=== PATIENT | male | born 1965 | race Caucasian/White ===

== ENCOUNTER → 2017-03-27 | Day surgery (SDC) | payer OTHER ==
[2017-03-26 07:54] VITALS: Ht 182.9 cm; Wt 86.4 kg
[~2017-03-27] VITALS: Ht 182.9 cm; Wt 86.4 kg
[~2017-03-27] MED LIST: ATEN-173 PO; LIDOCAINE HCL 2% 2 ML VIAL (20MG/ML) ONE; LISI-786 PO; MIDAZOLAM HCL 1 MG/ML 2ML VIAL ONE; OMEP20CA9 PO; ONDANSETRON INJ 2 MG/ML 2 ML VIAL ONE; PHENYLEPHRINE 100MCG/ML 5ML SYR ONE; PROPOFOL IV EMULSION 10 MG/ML 20 ML VIAL IV ONE; SODIUM CHLORIDE 0.9% 500ML 500 ML IV ONE
--- NOTE | 2017-03-27 10:14 | Endo History and Physical ---
History & Physical Date of Service: March 27, 2017. Chief Complaint: SCREENING Referring Physician: LAURA MONSIVAIS PA-C History of Present Illness 51 yo CM who presents for screening colonoscopy. Past Surgical History Hx Cardiac Surgery: No Hx Internal Defibrillator: No Hx Pacemaker: No Hx Abdominal Surgery: Yes (HERNIA REPAIR) Hx of Implantable Prosthesis: No Hx Post-Op Nausea and Vomiting: No Hx Cancer Surgery: No Hx Thoracic Surgery: No Hx Orthopedic: Yes (RT HAND REPAIR S/P BREAK) Hx Urinary Tract Surgery: No Family History Colon CA Social History Smoking Status: Current Every Day Smoker Hx Substance Use: No Hx Alcohol Use: Yes (4-6 DRINKS/DAY) Allergies Coded Allergies: No Known Allergies (Unverified , 03/27/17) Current Medications Reported Home Medications Medications Dose Route/Sig Max Daily Dose Days Date Category Prilosec (Omeprazole) 20 Mg Cap 20 Mg PO QAM 03/26/17 Reported Zestoretic (Lisinopril & Hydrochlorothiazi) 1 Tab Tab 1 Tab PO QAM 03/26/17 Reported Tenormin (Atenolol) 25 Mg Tab 0.5 Tab PO QPM 03/26/17 Reported Tenormin (Atenolol) 25 Mg Tab 25 Mg PO QAM 03/26/17 Reported Vital Signs Weight (Kilograms): 86.36 Height (Feet): 6 Height (Inches): 0 Date Time Temp Pulse Resp B/P Pulse Ox O2 Delivery O2 Flow Rate FiO2 03/27/17 09:49 37.1 76 18 145/96 98 Room Air Physical Exam General Appearance: WD/WN, no apparent distress Respiratory/Chest: Auscultation: breath sounds normal Cardiovascular: Heart Auscultation: RRR Abdomen: Bowel Sounds: normal Inspection & Palpation: soft, non-distended, no tenderness, guarding & rebound Assessment and Plan Assessment: 51 yo CM who presents for screening colonoscopy. Plan: Proceed with colonoscopy.
--- NOTE | 2017-03-27 10:57 | Discharge Instructions ---
Endoscopy Patient Instructions Date / Procedure(s) Performed March 27, 2017. Colonoscopy Allergy Information Coded Allergies: No Known Allergies (Unverified , 03/27/17) Discharge Date / Findings March 27, 2017. Colon polyps Diverticulosis Internal hemorrhoids Medication Instructions OK to resume all medications today as prescribed Reported Home Medications Medications Dose Route/Sig Max Daily Dose Days Date Category Prilosec (Omeprazole) 20 Mg Cap 20 Mg PO QAM 03/26/17 Reported Zestoretic (Lisinopril & Hydrochlorothiazi) 1 Tab Tab 1 Tab PO QAM 03/26/17 Reported Tenormin (Atenolol) 25 Mg Tab 0.5 Tab PO QPM 03/26/17 Reported Tenormin (Atenolol) 25 Mg Tab 25 Mg PO QAM 03/26/17 Reported Provider Instructions Activity Restrictions - No exercising or heavy lifting for 24 hours. - Do not drink alcohol the day of the procedure. - Do not drive a car or operate machinery until the day after the procedure. - Do not make any important decisions or sign important papers in 24 hours after the procedure. Following Day: - Return to full activity which may include returning to work/school. Diet Start your diet with liquids and light foods (jello, soup, juice, toast). Then eat your usual diet if not nauseated. Treatment For Common After Affects For mild abdominal pain, bloating, or excessive gas: - Rest - Eat lightly - Lie on right side Follow-Up Information Follow-up with LAURA MONSIVAIS PA-C as scheduled Anesthesia Information What You Should Know You have had a procedure that required some medicine to reduce anxiety and discomfort. This treatment is called moderate sedation. After receiving the treatment, you may be sleepy, but you will be able to breathe on your own. The effects of the treatment may last for several hours. Follow these instructions along with Activity/Diet recommendations noted above: * Do NOT do anything where dizziness or clumsiness would be dangerous. * Rest quietly at home today, then you can be up and about tomorrow. * Have a responsible person stay with you the rest of today. * You may have had an I.V. today. If so, you may take the dressing off later today. Recommendations Call your doctor if: * Trouble breathing * Continuous vomiting for more than 24 hours * Temperature above 101 degrees * Severe abdominal pain or bloating * Pain not relieved by pain medicine ordered * There is increased drainage or redness from any incision * A large amount of rectal bleeding greater than 2-3 tablespoons. (If you had a polyp/s removed or have hemorrhoids, a small amount of blood - from the rectum is to be expected.) * You have any unanswered questions or concerns. IN THE EVENT OF A SERIOUS EMERGENCY, GO TO THE NEAREST EMERGENCY ROOM Your discharge instructions were prepared by provider Davon Mccracken. Patient Instructions Signature Page Nestor Villeda Patient (or Guardian) Signature/Date: I have read and understand the instructions given to me by my caregivers. Caregiver/RN/Doctor Signature/Date: The above-named patient and/or guardian has received patient instructions on this date. + Original Patient Signature Page (only) stays with chart. Please make copy for patient.
--- NOTE | 2017-03-27 11:02 | GI REPORT ---
Procedure Date: 03/27/2017 10:03 AM Procedure: Colonoscopy Indications: Screening for colorectal malignant neoplasm Medicines: Monitored Anesthesia Care Complications: No immediate complications. Estimated Blood Loss: Estimated blood loss: none. Procedure: Pre-Anesthesia Assessment: - Prior to the procedure, a History and Physical was performed, and patient medications and allergies were reviewed. The patient's tolerance of previous anesthesia was also reviewed. The risks and benefits of the procedure and the sedation options and risks were discussed with the patient. All questions were answered, and informed consent was obtained. Prior Anticoagulants: The patient has taken no previous anticoagulant or antiplatelet agents. ASA Grade Assessment: II - A patient with mild systemic disease. After reviewing the risks and benefits, the patient was deemed in satisfactory condition to undergo the procedure. After I obtained informed consent, the scope was passed under direct vision. Throughout the procedure, the patient's blood pressure, pulse, and oxygen saturations were monitored continuously. The scope was introduced through the anus and advanced to the terminal ileum. The colonoscopy was performed without difficulty. The patient tolerated the procedure well. The quality of the bowel preparation was good. The terminal ileum, ileocecal valve, appendiceal orifice, and rectum were photographed. Findings: Six pedunculated polyps were found in the sigmoid colon. The polyps were 5 to 15 mm in size. These polyps were removed with a hot snare. Resection and retrieval were complete. To prevent bleeding after the polypectomy, four hemostatic clips were successfully placed (MR conditional). There was no bleeding at the end of the procedure. Scattered small-mouthed diverticula were found in the entire colon. Three sessile polyps were found in the rectum. The polyps were 5 to 7 mm in size. These polyps were removed with a hot snare. Resection and retrieval were complete. Non-bleeding internal hemorrhoids were found during retroflexion. The hemorrhoids were small. Impression: - Six 5 to 15 mm polyps in the sigmoid colon, removed with a hot snare. Resected and retrieved. Clips (MR conditional) were placed. - Diverticulosis in the entire examined colon. - Three 5 to 7 mm polyps in the rectum, removed with a hot snare. Resected and retrieved. - Non-bleeding internal hemorrhoids. Recommendation: - Resume previous diet. - Continue present medications. - Repeat colonoscopy for surveillance based on pathology results. - Return to primary care physician as previously scheduled. Davon Mccracken DO 03/27/2017 11:01:30 AM This report has been signed electronically. Note Initiated On: 03/27/2017 10:03 AM I attest to the content of the Intraoperative Record and orders documented therein, exceptions below
--- NOTE | 2017-03-27 11:08 | Anesthesiology Progress Note ---
Anesthesia Post Op Note Date & Time March 27, 2017 at 11:08 Vital Signs Pain Intensity: 0 Vital Signs Past 12 Hours Date Time Temp Pulse Resp B/P Pulse Ox O2 Delivery O2 Flow Rate FiO2 03/27/17 09:49 37.1 76 18 145/96 98 Room Air Notes Mental Status: alert / awake / arousable, participated in evaluation Pt Amnestic to Procedure: Yes Nausea / Vomiting: adequately controlled Pain: adequately controlled Airway Patency, RR, SpO2: stable & adequate BP & HR: stable & adequate Hydration State: stable & adequate Anesthetic Complications: no major complications apparent
[2017-03-27 11:36] VITALS: BP 160/100; PULSE 69; O2SAT 99
== END | disposition home or self-care (01) ==
LOC: C.GI 09:18
PROVIDERS: ATTEND Internal Medicine
DX: Z12.11 Encounter for screening for malignant neoplasm of colon (principal); C18.7 Malignant neoplasm of sigmoid colon; D12.8 Benign neoplasm of rectum; D12.5 Benign neoplasm of sigmoid colon; F17.200 Nicotine dependence, unspecified, uncomplicated; K57.30 Diverticulosis of large intestine without perforation or abscess without bleeding; K64.8 Other hemorrhoids

== ENCOUNTER → 2017-04-05 | Outpatient (CLI) | payer OTHER ==
[~2017-04-05] MED LIST changes: -LIDOCAINE HCL 2% 2 ML VIAL (20MG/ML) ONE; -MIDAZOLAM HCL 1 MG/ML 2ML VIAL ONE; -ONDANSETRON INJ 2 MG/ML 2 ML VIAL ONE; -PHENYLEPHRINE 100MCG/ML 5ML SYR ONE; -PROPOFOL IV EMULSION 10 MG/ML 20 ML VIAL IV ONE; -SODIUM CHLORIDE 0.9% 500ML 500 ML IV ONE
[2017-04-05 14:19] LABS: BASO % 0.6 %; BASO ABS # 0.05 K/uL (0-0.2); COMPLETE YES; HEMATOCRIT 43.5 % (42-52); IG% 0.4 %; LYMPH % 25.6 %; LYMPH ABS # 2.19 K/uL (1.2-3.4); MEAN CELL VOLUME 92.4 fL (80-100); MEAN CORPUSCULAR HEMOGLOBIN 31.2 pg (25-34); MEAN CORPUSCULAR HGB CONC 33.8 g/dl (32-36); MEAN PLATELET VOLUME 9.7 fL (7.4-10.4); MONO % 8.4 %; PLATELET COUNT 295 K/uL (130-400); RED BLOOD COUNT 4.71 M/uL (4.7-6.1); WHITE BLOOD COUNT 8.57 K/uL (4.8-10.8)
[2017-04-05 14:47] LABS: ALT/SGPT 34 U/L (12-78); AST/SGOT 20 U/L (15-37); BLOOD UREA NITROGEN 15 mg/dl (7-18); BUN/CREATININE RATIO 12.6 (10-20); CALCIUM 9.3 mg/dl (8.5-10.1); CARBON DIOXIDE 30 mmol/L (21-32); CHLORIDE 101 mmol/L (98-107); GLUCOSE 125 mg/dl (70-99); POTASSIUM 3.7 mmol/L (3.5-5.1); SODIUM 137 mmol/L (136-145)
[2017-04-05 14:52] LABS: ALB/GLOB RATIO 1.2 (0.9-2); ALKALINE PHOSPHATASE 95 U/L (45-117); C-REACTIVE PROTEIN 0.42 mg/dl (0-0.29)
== END | disposition home or self-care (01) ==
LOC: C.LAB 13:13
PROVIDERS: ATTEND Internal Medicine
DX: C18.9 Malignant neoplasm of colon, unspecified (principal)

== ENCOUNTER → 2017-04-06 | Outpatient (CLI) | payer OTHER ==
[~2017-04-06] MED LIST changes: +OPTIRAY 320 IV PRN
--- NOTE | 2017-04-06 07:38 | DIAGNOSTIC IMAGING REPORT ---
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 COMPARISON STUDY: None. FINDINGS: Calcified granulomas within the left lung base. No suspicious lytic or blastic osseous lesions. Questionable gastric wall thickening is likely due to underdistention. Punctate calcified granulomas within the spleen. The liver, gallbladder, adrenal glands, kidneys, and pancreas are unremarkable. No lymphadenopathy within the abdomen or pelvis. Mild bladder wall thickening. Duplicated right renal collecting system. The ureters may join immediately proximal to the ureterovesical junction. There appears to be a right-sided ureterocele measuring 1.6 cm. There is a metallic clip within the lumen of the mid sigmoid colon. There is also metallic clip within the proximal sigmoid colon. A few colonic diverticula. No bowel wall thickening or obstruction. Normal appendix. IMPRESSION: 1. No evidence for metastatic disease within the abdomen or pelvis. 2. There appears to be right-sided ureterocele measuring 1.6 cm. There is a duplicated right renal collecting system. The ureters appear to join immediately proximal to the right ureterovesical junction. 3. Metallic clips within the colon. 4. Colonic diverticulosis. Electronically signed by: Ravinder Oviedo M.D. 04/06/2017 7:37 AM Dictated Date/Time: 04/06/2017 7:31 AM
--- NOTE | 2017-04-06 08:59 | DIAGNOSTIC IMAGING REPORT ---
CT SCAN OF THE CHEST WITH IV CONTRAST CLINICAL HISTORY: Colon cancer. COMPARISON STUDY: Chest radiograph dated 12/09/2012. TECHNIQUE: Following the IV administration of 91 cc of Optiray 320, CT scan of the thorax was performed from the thoracic inlet to the upper abdomen. Images are reviewed in the axial, sagittal, and coronal planes. IV contrast was administered without complication. CT DOSE: 1087.95 mGy.cm FINDINGS: Thyroid: Imaged portions of the thyroid gland are normal in size and attenuation. Thoracic aorta: The thoracic aorta is normal in caliber and demonstrates standard 3-vessel arch anatomy. No dissection is seen. Pulmonary vasculature: The pulmonary trunk is normal in caliber. There are no filling defects identified in the central pulmonary vessels to indicate pulmonary embolus. Note that this examination was not protocoled for evaluation of the pulmonary arteries. Heart: The heart is normal in size and configuration, and without pericardial effusion. Lungs and pleural spaces: Scattered calcific right pelvis are identified. No concerning pulmonary lesion is seen. There is no airspace consolidation or pleural effusion. The trachea and central airways are clear. Mediastinum: There is no mediastinal lymphadenopathy. Jessi: There are tiny calcified left hilar lymph nodes. No hilar adenopathy is seen. Axillae: There is no axillary lymphadenopathy. Upper abdomen: Hepatic steatosis is observed. There is a tiny hiatal hernia. Calcified splenic granulomas are incidentally noted. Skeletal structures: No lytic or blastic bony lesions are seen. There are healed right-sided rib fractures. IMPRESSION: 1. There is no evidence of intrathoracic metastatic disease. 2. The lungs are clear. Electronically signed by: Bernardo King M.D. 04/06/2017 8:58 AM Dictated Date/Time: 04/06/2017 8:55 AM
== END | disposition home or self-care (01) ==
LOC: C.CTS 05:21
PROVIDERS: ATTEND Internal Medicine
DX: C18.9 Malignant neoplasm of colon, unspecified (principal)

== ENCOUNTER → 2017-04-18 | Outpatient (CLI) | payer OTHER ==
[~2017-04-18] MED LIST changes: +GADAVIST IV PRN; -OPTIRAY 320 IV PRN
--- NOTE | 2017-04-18 13:41 | DIAGNOSTIC IMAGING REPORT ---
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 DISCUSSION: The bones and joint spaces appear intact. There is no evidence of fracture, dislocation or bony disease. There is no evidence for soft tissue swelling. Small metallic foreign body adjacent to the distal phalanx right index finger IMPRESSION: Small metallic foreign body within the soft tissues adjacent to the distal phalanx of the index finger. Otherwise negative study Electronically signed by: Tyrell Duncan M.D. 04/18/2017 1:40 PM Dictated Date/Time: 04/18/2017 1:39 PM
--- NOTE | 2017-04-18 13:44 | DIAGNOSTIC IMAGING REPORT ---
BONY ORBITS 3 VIEWS CLINICAL HISTORY: MRI clearance. FINDINGS: 3 views of the bony orbits are obtained. No prior studies are available for comparison at the time of dictation. There is no radiodense/metallic foreign body seen in the region of the bony orbits. The bony orbits are intact as imaged. The visualized paranasal sinuses and the mastoid air cells appear clear. The imaged calvarium appears intact. IMPRESSION: There is no radiodense/metallic foreign body seen in the region of the bony orbits. Electronically signed by: Bernardo King M.D. 04/18/2017 1:43 PM Dictated Date/Time: 04/18/2017 1:42 PM
--- NOTE | 2017-04-18 14:04 | DIAGNOSTIC IMAGING REPORT ---
LEFT HAND 3 VIEWS. CLINICAL HISTORY: Hand pain. MRI clearance. FINDINGS: 3 views of the left hand are obtained. No prior studies are available for comparison at the time of dictation. The skeletal structures are well mineralized. No fracture is seen. There may be chronic avulsion of the ulnar styloid. Mild degenerative narrowing is seen at the radiocarpal articulation. Minimal arthritic change is noted at the first metacarpophalangeal joint. The joint spaces are otherwise well-maintained. The overlying soft tissues are normal in appearance. No radiodense/metallic foreign body is seen. IMPRESSION: 1. No acute bony abnormality is seen in left hand. 2. No radiodense/metallic foreign body is identified. Electronically signed by: Bernardo King M.D. 04/18/2017 2:03 PM Dictated Date/Time: 04/18/2017 2:01 PM
--- NOTE | 2017-04-18 15:30 | DIAGNOSTIC IMAGING REPORT ---
MRI pelvis PELVIS COMBO CLINICAL HISTORY: PELVIC CA, RAD FIRST rectal carcinoma TECHNIQUE: MRI multi axial acquisition COMPARISON STUDY: CT abdomen and pelvis dated 04/06/2017 FINDINGS: Right ureteral seal unchanged from the prior study. Bladder is midline. Bowel pattern is nonobstructive. The fascial planes are unremarkable. There is no significant pelvic or inguinal adenopathy. Signal characteristics the osseous structures are unremarkable. There are no bone marrow infiltrative changes. May be a slight degree of rectal wall thickening possibly secondary to the patient's prior biopsy site. IMPRESSION: No evidence for metastatic disease. No acute process. The perirectal fascial planes are unremarkable Electronically signed by: Tyrell Duncan M.D. 04/18/2017 3:29 PM Dictated Date/Time: 04/18/2017 3:21 PM
== END | disposition home or self-care (01) ==
LOC: C.RAD 12:38
PROVIDERS: ATTEND Colon & Rectal Surgery
DX: C20 Malignant neoplasm of rectum (principal); M79.641 Pain in right hand; M79.642 Pain in left hand

== ENCOUNTER → 2018-03-04 | Outpatient (CLI) | payer BC ==
[~2018-03-04] MED LIST changes: -GADAVIST IV PRN
--- NOTE | 2018-03-04 13:14 | DIAGNOSTIC IMAGING REPORT ---
CHEST 2 VIEWS ROUTINE CLINICAL HISTORY: Z01.818 Pre-op [id number] preoperative evaluation COMPARISON STUDY: 12/09/2012 FINDINGS: The bones soft tissues and hemidiaphragms are normal. The cardiomediastinal silhouette is normal. The lungs are clear. The pulmonary vasculature is normal. IMPRESSION: Negative chest. The above report was generated using voice recognition software. It may contain grammatical, syntax or spelling errors. Electronically signed by: Tyrell Duncan M.D. 03/04/2018 1:12 PM Dictated Date/Time: 03/04/2018 1:12 PM
[2018-03-04 13:16] LABS: BASO % 0.4 %; BASO ABS # 0.03 K/uL (0-0.2); EOS % 1.7 %; EOS ABS # 0.14 K/uL (0-0.5); HEMATOCRIT 41.7 % (42-52); HEMOGLOBIN 14.4 g/dL (14.0-18.0); IG# 0.03 K/uL (0.00-0.02); LYMPH % 27.9 %; LYMPH ABS # 2.27 K/uL (1.2-3.4); MEAN CORPUSCULAR HEMOGLOBIN 31.4 pg (25-34); MEAN CORPUSCULAR HGB CONC 34.5 g/dl (32-36); MEAN PLATELET VOLUME 9.5 fL (7.4-10.4); MONO ABS # 0.73 K/uL (0.11-0.59); NEUT % 60.6 %; NEUT ABS # 4.93 K/uL (1.4-6.5); PLATELET COUNT 262 K/uL (130-400); RED CELL DISTRIBUTION WIDTH CV 12.8 % (11.5-14.5); RED CELL DISTRIBUTION WIDTH SD 42.5 fL (36.4-46.3); WHITE BLOOD COUNT 8.13 K/uL (4.8-10.8)
[2018-03-04 13:47] LABS: BLOOD UREA NITROGEN 16 mg/dl (7-18); CALCIUM 9.5 mg/dl (8.5-10.1); CARBON DIOXIDE 27 mmol/L (21-32); CREATININE 1.16 mg/dl (0.60-1.40); GLUCOSE 108 mg/dl (70-99); POTASSIUM 4.1 mmol/L (3.5-5.1); SODIUM 133 mmol/L (136-145)
== END | disposition home or self-care (01) ==
LOC: C.CPL 12:24
PROVIDERS: ATTEND Surgery
DX: Z01.810 Encounter for preprocedural cardiovascular examination (principal); Z01.811 Encounter for preprocedural respiratory examination; Z01.812 Encounter for preprocedural laboratory examination; C18.9 Malignant neoplasm of colon, unspecified

== ENCOUNTER → 2018-05-29 | Outpatient (CLI) | payer BC ==
[~2018-05-29] MED LIST changes: +GADAVIST IV PRN; +HYDR25TA4 PO; +LISI-725 PO; +OXYC-57 PO; +TRAM-10 PO; +XLD/500 PO
--- NOTE | 2018-05-29 12:01 | DIAGNOSTIC IMAGING REPORT ---
LUMBAR SPINE COMBINATION CLINICAL HISTORY: 53 years-old Male presenting with SUB ACCOUNT ONSET LUMBOSACRAL PAIN/ W/ CONTRAST ON, left thigh numbness after colon surgery on March 14, 2018, left hip pain began on May 02, 2018 after initiating chemotherapy for colon cancer. TECHNIQUE: Multisequence, multiplanar MR imaging of the lumbar spine was performed before and after the administration of intravenous contrast. IV contrast: 9 mL of Gadavist. COMPARISON: PET/CT from 05/01/2018. FINDINGS: Localizer images: Unremarkable. Normal lumbar lordosis. The levels have been labeled on the images of the purposes of numbering. Rudimentary intervertebral disc is noted at S1-2. The spinal canal appears mildly narrow on a congenital basis. Vertebral bodies maintain normal height, alignment, and bone marrow signal intensity apart from minimal endplate edema anteriorly at the superior endplate of S1, likely degenerative related. Disc desiccation evident at L2-3, L3-4, and L5-S1. No significant intervertebral disc height loss. Additional multilevel degenerative changes further detailed below: L1-2: No significant neural foraminal or spinal canal narrowing. L2-3: Paracentral paracentral disc protrusion with mild effacement of the ventral thecal sac (series 6 image 8). No significant neural foraminal narrowing. L3-4: Disc bulge and mild facet arthropathy result in minimal effacement of the ventral thecal sac. Mild to moderate bilateral neural foraminal narrowing. L4-5: No significant spinal canal or neural foraminal narrowing. L5-S1: Minimal disc bulge and facet arthropathy result in mild right and moderate to severe left neural foraminal narrowing. No significant spinal canal narrowing. Spinal cord ends in good position at L1. Cauda equina normal in morphology. No paraspinal muscular edema. Remaining soft tissues within normal limits. No abnormal enhancement of the cauda equina on postcontrast imaging. No abnormal enhancement of paraspinal soft tissues. IMPRESSION: 1. Mild multilevel degenerative changes as detailed above, including moderate to severe left neural foraminal narrowing at L5-S1. Electronically signed by: Brenden Banerjee M.D. 05/29/2018 12:00 PM Dictated Date/Time: 05/29/2018 11:51 AM
== END | disposition home or self-care (01) ==
LOC: C.MRI 10:13
PROVIDERS: ATTEND Internal Medicine Hematology & Oncology
DX: C18.7 Malignant neoplasm of sigmoid colon (principal); M47.897 Other spondylosis, lumbosacral region; M47.896 Other spondylosis, lumbar region

== ENCOUNTER → 2018-06-11 | Outpatient (CLI) | payer BC ==
[~2018-06-11] MED LIST changes: -GADAVIST IV PRN; -LISI-786 PO; -OXYC-57 PO
== END | disposition home or self-care (01) ==
LOC: C.RDSM 09:53
PROVIDERS: ATTEND Family Medicine
DX: M25.552 Pain in left hip (principal)

== ENCOUNTER → 2018-07-04 | Outpatient (CLI) | payer BC ==
[2018-07-04 12:13] LABS: BASO % 0.2 %; BASO ABS # 0.02 K/uL (0-0.2); EOS % 1.6 %; EOS ABS # 0.15 K/uL (0-0.5); HEMATOCRIT 36.6 % (42-52); IG# 0.02 K/uL (0.00-0.02); LYMPH % 22.4 %; LYMPH ABS # 2.11 K/uL (1.2-3.4); MEAN CELL VOLUME 92.4 fL (80-100); MEAN CORPUSCULAR HEMOGLOBIN 30.3 pg (25-34); MEAN CORPUSCULAR HGB CONC 32.8 g/dl (32-36); MEAN PLATELET VOLUME 9.5 fL (7.4-10.4); MONO % 12.3 %; MONO ABS # 1.16 K/uL (0.11-0.59); NEUT % 63.3 %; NEUT ABS # 5.96 K/uL (1.4-6.5); PLATELET COUNT 250 K/uL (130-400); RED CELL DISTRIBUTION WIDTH CV 16.8 % (11.5-14.5); RED CELL DISTRIBUTION WIDTH SD 55.8 fL (36.4-46.3); WHITE BLOOD COUNT 9.42 K/uL (4.8-10.8)
[2018-07-04 12:37] LABS: ALBUMIN 3.6 gm/dl (3.4-5.0); ALKALINE PHOSPHATASE 103 U/L (45-117); ALT/SGPT 31 U/L (12-78); AST/SGOT 24 U/L (15-37); BLOOD UREA NITROGEN 16 mg/dl (7-18); CALCIUM 9.3 mg/dl (8.5-10.1); CARBON DIOXIDE 25 mmol/L (21-32); CREATININE 0.88 mg/dl (0.60-1.40); GLUCOSE 111 mg/dl (70-99); POTASSIUM 3.5 mmol/L (3.5-5.1); SODIUM 131 mmol/L (136-145); TOTAL PROTEIN 7.6 gm/dl (6.4-8.2)
== END | disposition home or self-care (01) ==
LOC: C.LABSPEC 11:52
PROVIDERS: ATTEND Internal Medicine Hematology & Oncology
DX: C18.7 Malignant neoplasm of sigmoid colon (principal)

== ENCOUNTER 2019-11-28 08:46 | Observation (INO) ==
--- NOTE | 2019-11-27 09:56 | Anesthesiology Consultation ---
Date of Service November 27, 2019 Easy airway management (7.5 ETT) for abdominal wound closure in March 2018. Patient did require 6 puffs of albuterol after intubation. Assessment & Plan (1) Encounter for pre-operative examination: Chart Review Chart Review: Acceptable Risk for Surgery and Patient NOT seen in Pre Admission Testing Consults Requested none History Surgery Operation Date: 11/28/19 10:15 Proposed Procedures p Left Video Assisted Thoracoscopy with Lung Wedge Biopsy - Manolo Alvarenga MD, FACS Height/Weight Height: 5 ft 11 in Weight: 95.254 kg Allergies Allergy/AdvReac Type Severity Reaction Status Date / Time No Known Allergies Allergy Unverified 11/27/19 09:08 Medications Home Medications Medication Instructions Recorded Confirmed Last Taken atenolol 25 mg PO QPM #0 03/26/17 11/27/19 Unknown atenolol 50 mg PO QAM #0 03/26/17 11/27/19 Unknown omeprazole 20 mg PO QAM #0 03/26/17 11/27/19 Unknown hydrochlorothiazide 12.5 mg PO DAILY PRN #0 tab 06/03/18 11/27/19 Unknown lisinopril 40 mg PO QAM #0 tab 06/03/18 11/27/19 Unknown tramadol 50 mg PO TID PRN #0 tab 06/03/18 11/27/19 Unknown Past Medical History Medical History Colon cancer colon resection + chemo Current every day smoker GERD (gastroesophageal reflux disease) Hypertension Pulmonary nodules Past Family History Family History Father Cancer Colorectal cancer Past Surgical History Surgical History History of colon resection 2018 History of colonoscopy History of tonsillectomy History of tooth extraction History of vascular access device Social History Smoking Status: Current every day smoker tobacco type: cigarettes Smoking cigarettes per day: 1/2 ppd Do You Dip or Chew Tobacco: No Hx Alcohol Use: Yes Alcohol type: beer alcohol intake frequency: a few times a week Hx Substance Use: No substance use type: does not use Testing Laboratory Results Laboratory Tests 11/13/19 11/13/19 15:51 15:51 WBC 5.64 Hgb 15.0 Hct 43.7 Plt Count 151 Sodium 133 L Potassium 4.3 Chloride 99 Carbon Dioxide 27 BUN 21 H Creatinine 1.10 Glucose 97 Electrocardiogram Date: 11/26/19 Findings: + NSR @
[~2019-11-28 08:46] MED LIST changes: -ATEN-173 PO; -HYDR25TA4 PO; -LISI-725 PO; +LR 15ML/HR IV SCH; -OMEP20CA9 PO; -TRAM-10 PO; -XLD/500 PO
[2019-11-28] MEDS ORDERED: DEXAMETHASONE SOD INJ 4 MG/ML VIAL ONE (08:52)
[2019-11-28] MEDS ORDERED: SUCCINYLCHOLINE CHLORIDE 20 MG/ML 10 ML VIAL ONE (08:52)
[2019-11-28] MEDS ORDERED: fentaNYL citrate 100 MCG/2 ML VIAL ONE (08:52)
[2019-11-28] MEDS ORDERED: PROPOFOL IV EMULSION 10 MG/ML 20 ML VIAL IV ONE (08:52)
[2019-11-28] MEDS ORDERED: MIDAZOLAM HCL 1 MG/ML 2ML VIAL ONE (08:52)
[2019-11-28] MEDS ORDERED: ePHEDrine sulfate 50 MG/ML AMP ONE ×2 (08:52→10:54)
[2019-11-28] MEDS ORDERED: ONDANSETRON INJ 2 MG/ML 2 ML VIAL ONE (08:52)
[2019-11-28] MEDS ORDERED: PHENYLEPHRINE HCL 10 MG/ML VIAL ONE (08:52)
[2019-11-28] MEDS ORDERED: LIDOCAINE HCL 2% 2 ML VIAL/AMP(20MG/ML) INFIL ONE (08:52)
[2019-11-28] MEDS ORDERED: NEOSTIGMINE METHYLSULFATE 5 MG/5 ML SYR ONE (08:52)
[2019-11-28] MEDS ORDERED: GLYCOPYRROLATE 0.2 MG/ML VIAL ONE (08:52)
--- NOTE | 2019-11-28 09:19 | History & Physical Bridge Note ---
Date of Service November 28, 2019 History & Physical Bridge Note I have examined the patient, reviewed the History & Physical and in the interval since the performance of the History & Physical I have noted the following changes of clinical significance: no changes noted
[2019-11-28] MEDS ORDERED: CEFAZOLIN 250 MG/ML 1 GM VIAL ONE (09:35)
[2019-11-28] MEDS ORDERED: BUPIVACAINE 0.5 % 5 MG/1 ML MPF 30ML VIAL ONE (09:40)
[2019-11-28] MEDS ORDERED: SODIUM CHLORIDE 0.9% PF 50 ML VIAL ONE (09:41)
[2019-11-28] MEDS ORDERED: BUPIVACAINE LIPOSOME 1.3% 266 MG/20 ML VIAL ONE (09:41)
[2019-11-28] MEDS ORDERED: SODIUM CHLORIDE 0.9% INJ 10 ML VIAL ONE (10:54)
[2019-11-28] MEDS ORDERED: CEFAZOLIN 2000MG 2,000 MG/15 ML SYR IV ONE (11:05)
[2019-11-28] MEDS ORDERED: METOCLOPRAMIDE HCL INJ 5 MG/ML 2 ML VIAL IV ONE (11:45)
--- NOTE | 2019-11-28 11:47 | Operative Report ---
DATE OF OPERATION: 11/28/2019 PREOPERATIVE DIAGNOSES: 1. Multiple pulmonary nodules. 2. History of colorectal carcinoma. POSTOPERATIVE DIAGNOSIS: Metastatic colorectal carcinoma to left lower lobe. PROCEDURE: Left thoracoscopy with biopsy, left lower lobe nodule. SURGEON: Manolo Alvarenga MD. ANIMATED CARTOONS PAINTER: DEEPTI Serrano (Mr. Saunders was present for the entire case and closed the skin incisions at the conclusion). ANESTHESIA: General anesthesia, endotracheal intubation. INDICATION FOR PROCEDURE AND FINDINGS: This is a 54-year-old male who underwent a colon resection after adjuvant therapy for a colorectal carcinoma. He was noted to have some very small nodules and these have been followed in his lung for more than a year. They have gotten significantly larger. The patient has no systemic or symptoms from this. I was asked to evaluate this patient for possible wedge resection. On 11/28/2019, the patient was brought to the operating room and underwent uncomplicated left thoracoscopy and wedge resection of the largest nodule in the medial left lower lobe. Frozen section showed this to be consistent with a colorectal carcinoma. The patient had no air leak at conclusion of the case and did quite well. DESCRIPTION OF PROCEDURE: The patient brought to the operating room, laid in supine position. General anesthesia induced and endotracheal intubation performed with single lumen tube. The patient was turned in right lateral decubitus position and left lateral chest was prepped and draped in usual sterile fashion. A 5 mm scope was placed posterior and anterior to the scapular tip. We then put a 12 mm port further inferiorly just above the diaphragm. We then inspected the chest and there were several small nodules, but there was a larger nodule noted in the medial left lower lobe. I took down some of the inferior pulmonary ligament using cautery. I then pulled up this medial aspect of the lower lobe and wedged it out using Endo-CLYDE stapler. This was delivered off the table through an Endobag. While this was sent for frozen section, we then performed an intercostal block. A total of 266 mg of Exparel in 20 mL of solution was mixed with 30 mL of 0.5% bupivacaine and 250 mL of normal saline. This was used to inject all the 3 port sites. We also used it to inject the chest tube site as none of the port sites where appropriate. We did this a bit more medially and inferiorly. We also did an intercostal block starting at the second rib and going all the way down to the 12th under thoracoscopic guidance with a long needle. A 24-Lux[place] chest tube was placed through the separate stab wound and directed towards the apex and held in place with heavy silk suture. 0 Vicryl was used to close the 12 mm port muscle layers. 4-0 Monocryl was used in running subcuticular fashion to approximate the wound edges. The patient tolerated it well. I attest to the content of the Intraoperative Record and any orders documented therein. Any exception s are noted below.
--- NOTE | 2019-11-28 11:48 | XRay Report ---
XR chest 1V portable CLINICAL HISTORY: left wedge biopsy post operative COMPARISON STUDY: 06/06/2018 FINDINGS: Interval wedge biopsy left hemithorax. Placement of left-sided chest tube. No significant p ostprocedural pneumothorax. Subsegmental atelectasis left base. Subcutaneous emphysema. Right lung remains clear. The central catheter in superior vena cava. IMPRESSION: 1. Unremarkable postoperative changes left hemithorax. 2. No significant postprocedural pneumothorax. ACT 112: Negative or not required by law. The above report was generated using voice recognition software. It may contain grammatical, syntax or spelling errors. Electronically signed by: Tyrell Duncan M.D. 11/28/2019 11:47 AM
[2019-11-28] MEDS ORDERED: ATROPINE SULFATE 0.1 MG/ML 10ML SYR IV PRN (11:59)
[2019-11-28] MEDS ORDERED: HYDROmorphone INJ 1 MG/ML SYRINGE IV PRN (11:59)
[2019-11-28] MEDS ORDERED: KETOROLAC 30 MG/ML VIAL IV PRN (11:59)
[2019-11-28] MEDS ORDERED: ONDANSETRON INJ 2 MG/ML 2 ML VIAL IV PRN ×2 (11:59→12:51)
[2019-11-28] MEDS ORDERED: LABETALOL HCL IV 5 MG/ML 20ML IV PRN (11:59)
[2019-11-28] MEDS ORDERED: HYDROmorphone INJ 1 MG/ML SYRINGE ONE (12:00)
[2019-11-28] MEDS ORDERED: MoRPHine SULFATE 2 MG/ML CARP IV PRN (12:51)
--- NOTE | 2019-11-28 13:21 | Anesthesiology Progress Note ---
Date of Service November 28, 2019 Anesthesia Post Procedure Vital Signs Vital Signs: Temp Pulse Pulse Resp BP BP Pulse Ox 11/28/19 12:22 36.3 C L 61 18 137/80 96 11/28/19 12:10 57 L 18 132/77 97 11/28/19 12:00 57 L 18 150/83 H 96 11/28/19 11:50 59 L 19 142/82 H 100 11/28/19 11:40 66 18 131/70 98 11/28/19 11:34 36.4 C L 75 16 143/79 H 99 11/28/19 09:21 37 C 72 20 162/95 H 98 Pain Intensity Left Chest: Pain Intensity: 3 Transfer of Care Handoff Completed per policy Notes Mental Status: alert / awake / arousable Patient Amnestic to Procedure: Yes Nausea / Vomiting: adequately controlled Pain: adequately controlled Airway Patency, RR, SpO2: stable & adequate BP & HR: stable & adequate Hydration State: stable & adequate Anesthetic Complications: no major complications apparent
[2019-11-28] MEDS: ACETAMINOPHEN 1,000 MG/100 ML VIAL IV SCH ×2 (13:53→20:49)
[2019-11-28] MEDS: METOCLOPRAMIDE HCL INJ 5 MG/ML 2 ML VIAL IV SCH ×2 (13:54→20:50)
[2019-11-28] MEDS: D5W AND 1/2NSS 1,000 ML IV SCH ×2 (14:25→23:48)
[2019-11-28] MEDS: OXYCODONE HCL IR 5 MG TAB (IMMEDIATE RELEASE) PO PRN (19:05)
[2019-11-28] MEDS: DOCUSATE SODIUM 100 MG CAP PO SCH (20:43)
[2019-11-28] MEDS ORDERED: ATENOLOL 25 MG TABLET PO SCH (21:00)
[2019-11-29] MEDS: ACETAMINOPHEN 1,000 MG/100 ML VIAL IV SCH (04:36)
[2019-11-29] MEDS: METOCLOPRAMIDE HCL INJ 5 MG/ML 2 ML VIAL IV SCH (04:37)
--- NOTE | 2019-11-29 07:29 | XRay Report ---
XR chest 1V portable HISTORY: 54 years-old Male left wedge biopsy follow-up study in a patient with prior left lung surge ry COMPARISON: Chest radiographs 11/28/2019 TECHNIQUE: Portable AP view of the chest FINDINGS: Cardiac silhouette is enlarged, unchanged. Stable positioning of left subclavian Zdmher-g-Dzqq cathet er. Left-sided chest tube distal tip terminates adjacent to the lateral left apex, unchanged. No defi nite pneumothorax identified. Linear left lung base opacities suggest atelectasis/scarring. Persisten t subcutaneous emphysema of the left chest wall. IMPRESSION: 1. Postoperative changes of the left hemithorax with stable positioning of the left-sided chest tube. No definite pneumothorax identified. 2. Left lung base atelectasis. 3. Subcutaneous emphysema of the left chest wall. ACT 112: Negative or not required by law. The above report was generated using voice recognition software. It may contain grammatical, syntax o r spelling errors. Electronically signed by: Sin Gonzalez M.D. 11/29/2019 7:28 AM
[2019-11-29] MEDS: OXYCODONE HCL IR 5 MG TAB (IMMEDIATE RELEASE) PO PRN (07:48)
--- NOTE | 2019-11-29 08:43 | XRay Report ---
XR chest 1V portable HISTORY: 54 years-old Male chest tube removal status post removal of left-sided chest tube COMPARISON: Chest radiograph of same day at 6:44 AM TECHNIQUE: Portable AP view of the chest FINDINGS: Unchanged left subclavian Kyhezr-s-Wzve catheter. Cardiomegaly without overt pulmonary edema. The rig ht lung is clear. Status post removal of the left-sided chest tube. Postoperative changes of the left lung with persistent left lung base scarring/atelectasis. No definite pneumothorax identified. Trace left pleural effusion. Subcutaneous emphysema of the left chest wall redemonstrated. IMPRESSION: Status post removal of the left-sided chest tube. No pneumothorax identified. ACT 112: Negative or not required by law. The above report was generated using voice recognition software. It may contain grammatical, syntax o r spelling errors. Electronically signed by: Sin Gonzalez M.D. 11/29/2019 8:42 AM
[2019-11-29] MEDS: DOCUSATE SODIUM 100 MG CAP PO SCH (08:51)
[2019-11-29] MEDS ORDERED: PANTOprazole 40 MG TAB PO SCH (09:00)
[2019-11-29] MEDS ORDERED: lisinopriL 40 MG TAB PO SCH (09:00)
[2019-11-29] MEDS ORDERED: ATENOLOL 50 MG TABLET PO SCH (09:00)
[2019-11-29] MEDS ORDERED: ENOXAPARIN INJ 40 MG/0.4 ML SYR SQ SCH (09:00)
--- NOTE | 2019-11-29 09:59 | Discharge Summary ---
DISCHARGE DIAGNOSIS: Colorectal carcinoma to lung. HOSPITAL COURSE: Mr. Villeda is a 54-year-old male who was diagnosed with a colorectal carcinoma and underwent surgery in 03/2018. He was noted to have small nodules which increased in size and I was asked to evaluate these for possible biopsy. On 11/28/2018, patient underwent an uncomplicated left thoracoscopy with wedge resection of left lower lobe nodule which was the largest in his chest, although he has multiple nodules bilaterally. Frozen section was consistent with a colorectal carcinoma. He did well with this with no air leak. Following morning, I removed his chest tube. He looked quite good. He is ambulating in the hallway. He was urinating well and eating. He was discharged home and told to resume his regular medications and did call in prescription for Percocet. I will see him back in 1 week with a chest x-ray.
== END 2019-11-29 11:26 | disposition home or self-care (01) | DRG 164 ==
LOC: ASU 08:46 → 3W 11:28 → INTOOBSV 11:28

== ENCOUNTER 2020-09-07 16:20 | Inpatient (IN) ==
[2020-09-07] MEDS ORDERED: MoRPHine SULFATE 4 MG/ML 1 ML CARP\\VIAL IV PRN (16:38)
[2020-09-07] MEDS ORDERED: ONDANSETRON INJ 2 MG/ML 2 ML VIAL IV STA (16:38)
--- NOTE | 2020-09-07 16:44 | Emergency Department Note ---
Impression & Plan Lower abdominal pain, Colitis, Heme positive stool, Acute hyponatremia ED Provider Note NAME: JUSTINO VILLEDA AGE: 55 SEX: M : 1965 ARRIVES VIA: Ambulance INFORMANT: [Patient] ED PROVIDER(S): [Bernardo Poe MD] CHIEF COMPLAINT: Abdominal pain HISTORY OF PRESENT ILLNESS: The patient is a 55-year-old male who is on chemotherapy for metastatic colon cancer. His last chemo administration was 8 days ago. The patient states that for 4 days now, he has had crampy abdominal pain that sometimes feels like a 10/10. He has to go to the bathroom a lot and has been having diarrhea. The pain seems somewhat better after the diarrhea for a short bit. He has noticed blood in the toilet and when he wipes. He has never had rectal bleeding like this before. There has been a decreased appetite, no vomiting. No fever. No cough or congestion. He has felt somewhat dizzy. REVIEW OF SYSTEMS: See HPI for pertinent positives and negatives. A total of ten systems were reviewed and were otherwise negative. PMHx/PSHx: See Below SOCIAL HISTORY: See Below. PHYSICAL EXAM: GENERAL: Patient is in no acute distress. HEENT: No acute trauma, normocephalic atraumatic, mucous membranes moist, no nasal congestion, no scleral icterus. NECK: No stridor, no adenopathy, no meningismus, trachea is midline. LUNGS: Clear to auscultation bilaterally, no wheeze, no rhonchi, breath sounds equal. HEART: Without murmurs gallops or rubs, regular rate and rhythm. ABDOMEN: Soft, moderately tender in the left lower quadrant, bowel sounds positive, no hernias, no peritonitis. EXTREMITIES: No cyanosis or edema, full range of motion of all the joints without pain or difficulty, no signs for acute trauma. NEUROLOGIC: Oriented x 3, no acute motor or sensory deficits, no focal weakness. SKIN: No rash, no jaundice, no diaphoresis. Rectal:, No external source for bleeding. Digital exam reveals brown stool which is heme positive. The stool was very liquidy. DIFFERENTIAL DIAGNOSIS: Diverticulitis, colitis, medication reaction, dehydration, lower or upper GI bleeding, UTI, obstruction, mesenteric ischemia, aortic pathology, inflammatory bowel disease, renal colic, PUD, pancreatitis, biliary pathology, hernia, volvulus, constipation, as well as other pathologies. EMERGENCY DEPARTMENT COURSE/PROCEDURES: MEDICAL DECISION MAKING: There is a lower white blood cell count at 2.04, this could be consistent with his recent chemotherapy. Hemoglobin slightly low at 13.5. There was a normal platelet count. Renal panel testing shows a low sodium at 123. No kidney failure. No worrisome liver enzyme elevation. No evidence for pancreatitis. Abdominal and pelvis CT shows a colitis consistent with his presentation. On my exam, his stool was liquidy and brown and heme positive. The patient received IV saline for hydration. He was given IV morphine for pain, he received IV Zofran for nausea. He received IV Tylenol for additional pain control. The patient presents with diarrhea, bloody stool and lower abdominal pain. He appears to have colitis by work-up. Admission/observation is warranted. I suspect his low sodium will correct with continued IV hydration. I spoke to the patient, I talked with case management. The on-call hospitalist was consulted. Past Med/Surg History Medical History Colitis Colon cancer colon resection + chemo Current every day smoker GERD (gastroesophageal reflux disease) Hypertension Pulmonary nodules Surgical History History of colon resection 2018 History of colonoscopy History of lung surgery (11/28/19) Left thoracoscopy with biopsy, left lower lobe nodule. Dr. Alvarenga 11-28-19 History of tonsillectomy History of tooth extraction History of vascular access device Family History Father Cancer Colorectal cancer Social History Smoking Status: Unknown if ever smoked packs per day: 0.5; Cigarettes Per Day: 1/2 ppd; Second Hand Exposure: Yes (as a child); Hx Alcohol Use: No Hx Substance Use: No Preferred Language: Croatian Communication Ability: Effective Dormitory Keeper Required: No Beliefs That Will Affect Care: None marital status: Single Current Living Situation: Family Current Living Situation Comment: Lives w/ brother - Luke Villeda current occupational status: employed 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 Feels Safe at Home: Yes Assistive Devices: None Allergies Allergies Allergy/AdvReac Type Severity Reaction Status Date / Time No Known Allergies Allergy Verified 09/07/20 18:59 Home Meds Home Medications Medication Instructions Recorded Confirmed atenolol [Tenormin] 50 mg PO BID 09/07/20 09/07/20 clonazepam [Klonopin] 1 mg PO BID PRN 09/07/20 09/07/20 fentanyl [Duragesic] 50 mcg TOPICAL [id number] 09/07/20 09/07/20 hydrochlorothiazide 25 mg PO DAILY 09/07/20 09/07/20 lisinopril [Zestril] 40 mg PO DAILY 09/07/20 09/07/20 omeprazole 40 mg PO DAILY 09/07/20 09/07/20 ondansetron HCl 8 mg PO Q8 PRN 09/07/20 09/07/20 oxycodone 10 mg PO Q4 PRN 09/07/20 09/07/20 Results & Data (ED) Vital Signs Vital Signs - 24 hr 09/07/20 16:26 09/07/20 16:29 09/07/20 16:30 Temperature 37.7 C H Temperature Source Oral Pulse Rate 113 H 112 H 112 H Pulse Rate from SpO2 Sensor 113 H 112 H 112 H Pulse Rhythm Regular Pulse Strength Normal Respiratory Rate 16 16 16 Respiratory Effort / Characteristics Non-Labored Respiratory Depth Normal Respiratory Pattern Regular Blood Pressure 176/120 H 176/120 H Blood Pressure Mean 135 138 Blood Pressure Position Lying Pulse Oximetry 97 97 97 Oxygen Delivery Method Room Air Sepsis Recent Fever Within 48 Hours No Sepsis New/Unexplained Change in Mental Status N/A Sepsis Action Taken by Nursing No Action Required 09/07/20 16:31 09/07/20 16:40 09/07/20 16:50 Temperature Temperature Source Pulse Rate 113 H 106 H 117 H Pulse Rate from SpO2 Sensor 113 H 106 H 117 H Pulse Rhythm Pulse Strength Respiratory Rate 16 15 19 Respiratory Effort / Characteristics Respiratory Depth Respiratory Pattern Blood Pressure 131/100 Blood Pressure Mean 113 Blood Pressure Position Pulse Oximetry 97 96 98 Oxygen Delivery Method Sepsis Recent Fever Within 48 Hours Sepsis New/Unexplained Change in Mental Status Sepsis Action Taken by Nursing 09/07/20 17:00 09/07/20 17:10 09/07/20 17:20 Temperature Temperature Source Pulse Rate 112 H 100 H 102 H Pulse Rate from SpO2 Sensor 111 H 101 H 101 H Pulse Rhythm Pulse Strength Respiratory Rate 25 H 19 17 Respiratory Effort / Characteristics Respiratory Depth Respiratory Pattern Blood Pressure 146/102 H Blood Pressure Mean 116 Blood Pressure Position Pulse Oximetry 97 95 98 Oxygen Delivery Method Sepsis Recent Fever Within 48 Hours Sepsis New/Unexplained Change in Mental Status Sepsis Action Taken by Nursing 09/07/20 17:30 09/07/20 17:31 09/07/20 17:40 Temperature Temperature Source Pulse Rate 92 H 96 H 98 H Pulse Rate from SpO2 Sensor 93 H 95 H 97 H Pulse Rhythm Pulse Strength Respiratory Rate 19 20 23 Respiratory Effort / Characteristics Respiratory Depth Respiratory Pattern Blood Pressure 167/86 H Blood Pressure Mean 113 Blood Pressure Position Pulse Oximetry 97 97 99 Oxygen Delivery Method Sepsis Recent Fever Within 48 Hours Sepsis New/Unexplained Change in Mental Status Sepsis Action Taken by Nursing 09/07/20 19:07 09/07/20 19:10 09/07/20 19:20 Temperature Temperature Source Pulse Rate 93 H Pulse Rate from SpO2 Sensor 97 H 96 H 93 H Pulse Rhythm Pulse Strength Respiratory Rate Respiratory Effort / Characteristics Respiratory Depth Respiratory Pattern Blood Pressure Blood Pressure Mean Blood Pressure Position Pulse Oximetry 97 98 95 Oxygen Delivery Method Sepsis Recent Fever Within 48 Hours Sepsis New/Unexplained Change in Mental Status Sepsis Action Taken by Nursing 09/07/20 19:30 09/07/20 19:31 09/07/20 19:40 Temperature Temperature Source Pulse Rate 91 H 90 90 Pulse Rate from SpO2 Sensor 91 H 91 H 90 Pulse Rhythm Pulse Strength Respiratory Rate Respiratory Effort / Characteristics Respiratory Depth Respiratory Pattern Blood Pressure 141/81 H Blood Pressure Mean 90 Blood Pressure Position Pulse Oximetry 95 94 96 Oxygen Delivery Method Sepsis Recent Fever Within 48 Hours Sepsis New/Unexplained Change in Mental Status Sepsis Action Taken by Nursing 09/07/20 19:50 09/07/20 20:00 09/07/20 20:01 Temperature Temperature Source Pulse Rate 99 H 99 H 97 H Pulse Rate from SpO2 Sensor 99 H 99 H 97 H Pulse Rhythm Pulse Strength Respiratory Rate 14 18 Respiratory Effort / Characteristics Respiratory Depth Respiratory Pattern Blood Pressure 150/90 H Blood Pressure Mean 105 Blood Pressure Position Pulse Oximetry 99 96 97 Oxygen Delivery Method Sepsis Recent Fever Within 48 Hours Sepsis New/Unexplained Change in Mental Status Sepsis Action Taken by Nursing 09/07/20 20:02 Temperature Temperature Source Pulse Rate 98 H Pulse Rate from SpO2 Sensor 99 H Pulse Rhythm Pulse Strength Respiratory Rate 14 Respiratory Effort / Characteristics Respiratory Depth Respiratory Pattern Blood Pressure Blood Pressure Mean Blood Pressure Position Pulse Oximetry 96 Oxygen Delivery Method Sepsis Recent Fever Within 48 Hours Sepsis New/Unexplained Change in Mental Status Sepsis Action Taken by Longterm Medications Current Medication List: was personally reviewed by me Laboratory Data Attestation: I reviewed the patient's lab results. Result diagrams: 09/07/20 16:57 09/07/20 16:57 Lab Results 09/07/20 09/07/20 09/07/20 Range/Units 16:57 16:57 16:57 WBC 2.04 L (4.8-10.8) K/uL RBC 4.34 L (4.7-6.1) M/uL Hgb 13.5 L (14.0-18.0) g/dL Hct 38.7 L (42-52) % MCV 89.2 (80-100) fL MCH 31.1 (25-34) pg MCHC 34.9 (32-36) g/dL RDW Std Deviation 44.4 (36.4-46.3) fL RDW Coeff of Gerald 13.5 (11.5-14.5) % Plt Count 166 (130-400) K/uL MPV 9.2 (7.4-10.4) fL Immature Gran % (Auto) 1.0 % Neut % (Auto) 53.3 % Lymph % (Auto) 16.7 % [place] % (Auto) 27.5 % Eos % (Auto) 1.0 % Baso % (Auto) 0.5 % Neut # (Auto) 1.09 L (1.4-6.5) K/uL Lymph # (Auto) 0.34 L (1.2-3.4) K/uL [place] # (Auto) 0.56 (0.11-0.59) K/uL Eos # (Auto) 0.02 (0-0.5) K/uL Baso # (Auto) 0.01 (0-0.2) K/uL Immature Gran # (Auto) 0.02 (0.00-0.02) K/uL Toxic Granulation 1+ Toxic Vacuolation 1+ Sodium 123 L (136-145) mmol/L Potassium 3.3 L (3.5-5.1) mmol/L Chloride 88 L (98-107) mmol/L Carbon Dioxide 28 (21-32) mmol/L Anion Gap 7.0 (3-11) BUN 12 (7-18) mg/dl Creatinine 0.70 (0.6-1.4) mg/dl Est Cr Clr Drug Dosing 128.5 ml/min Est GFR ( Amer) 124.0 Est GFR (Non-Af Amer) 107.0 BUN/Creatinine Ratio 17.1 (10-20) Glucose 112 H (70-99) mg/dl Calcium 9.2 (8.5-10.1) mg/dl Phosphorus (2.5-4.9) mg/dl Magnesium (1.8-2.4) mg/dl Total Bilirubin 1.3 H (0.2-1) mg/dl AST 11 L (15-37) U/L ALT 23 (12-78) U/L Alkaline Phosphatase 88 (45-117) U/L Total Protein 6.9 (6.4-8.2) gm/dl Albumin 2.8 L (3.4-5.0) gm/dl Globulin 4.1 H (2.5-4.0) gm/dl Albumin/Globulin Ratio 0.7 L (0.9-2) Lipase 35 L (73-393) U/L Blood Type O Positive Antibody Screen NEGATIVE 09/07/20 Range/Units 16:57 WBC (4.8-10.8) K/uL RBC (4.7-6.1) M/uL Hgb (14.0-18.0) g/dL Hct (42-52) % MCV (80-100) fL MCH (25-34) pg MCHC (32-36) g/dL RDW Std Deviation (36.4-46.3) fL RDW Coeff of Gerald (11.5-14.5) % Plt Count (130-400) K/uL MPV (7.4-10.4) fL Immature Gran % (Auto) % Neut % (Auto) % Lymph % (Auto) % [place] % (Auto) % Eos % (Auto) % Baso % (Auto) % Neut # (Auto) (1.4-6.5) K/uL Lymph # (Auto) (1.2-3.4) K/uL [place] # (Auto) (0.11-0.59) K/uL Eos # (Auto) (0-0.5) K/uL Baso # (Auto) (0-0.2) K/uL Immature Gran # (Auto) (0.00-0.02) K/uL Toxic Granulation Toxic Vacuolation Sodium (136-145) mmol/L Potassium (3.5-5.1) mmol/L Chloride (98-107) mmol/L Carbon Dioxide (21-32) mmol/L Anion Gap (3-11) BUN (7-18) mg/dl Creatinine (0.6-1.4) mg/dl Est Cr Clr Drug Dosing ml/min Est GFR ( Amer) Est GFR (Non-Af Amer) BUN/Creatinine Ratio (10-20) Glucose (70-99) mg/dl Calcium (8.5-10.1) mg/dl Phosphorus 2.2 L (2.5-4.9) mg/dl Magnesium 2.1 (1.8-2.4) mg/dl Total Bilirubin (0.2-1) mg/dl AST (15-37) U/L ALT (12-78) U/L Alkaline Phosphatase (45-117) U/L Total Protein (6.4-8.2) gm/dl Albumin (3.4-5.0) gm/dl Globulin (2.5-4.0) gm/dl Albumin/Globulin Ratio (0.9-2) Lipase (73-393) U/L Blood Type Antibody Screen Administered Medications Acetaminophen (Acetaminophen 325 Mg Tab) 650 mg PO Q4H PRN PRN Reason: pain/fever Stop: 10/07/20 22:11 Last Admin: 09/07/20 22:33 Dose: 650 mg Documented by: [id number] Atenolol (Atenolol 50 Mg Tablet) 50 mg PO BID [facility] Stop: 10/07/20 22:11 Last Admin: 09/07/20 22:52 Dose: 50 mg Documented by: [id number] Lactated Ringer's (Lr) 1,000 mls @ 125 mls/hr IV .Q8H [place] Stop: 09/08/20 14:11 Last Admin: 09/07/20 22:25 Dose: 125 mls/hr Documented by: [id number] Oxycodone HCl (Oxycodone Hcl Ir 5 Mg Tab (Immediate Release)) 10 mg PO Q4 PRN PRN Reason: Pain Stop: 09/21/20 22:11 Last Admin: 09/07/20 22:33 Dose: 10 mg Documented by: [id number] Discontinued Medications Sodium Chloride (Nss 1000ml) 1,000 mls @ 999 mls/hr IV .Q1H1M [place] Stop: 09/07/20 17:45 Last Infusion: 09/07/20 18:08 Dose: 0 mls/hr Documented by: [id number] Admin: 09/07/20 17:07 Dose: 999 mls/hr Documented by: [id number] Acetaminophen (Ofirmev) 1,000 mg in 100 mls @ 400 mls/hr IV NOW STA Stop: 09/07/20 17:59 Last Infusion: 09/07/20 18:59 Dose: 0 mls/hr Documented by: [id number] Admin: 09/07/20 18:04 Dose: 400 mls/hr Documented by: [id number] Ioversol (Ioversol 100ml) 94 ml IV ONCE ONE Stop: 09/07/20 17:52 Last Admin: 09/07/20 17:52 Dose: 94 ml Documented by: [id number] Morphine Sulfate (Morphine Sulfate 4 Mg/Ml 1 Ml Carp\Vial) 6 mg IV Q15M PRN PRN Reason: Pain Stop: 09/21/20 16:37 Last Admin: 09/07/20 17:07 Dose: 6 mg Documented by: [id number] Morphine Sulfate (Morphine Sulfate 4 Mg/Ml 1 Ml Carp\Vial) 4 mg IV NOW STA Stop: 09/07/20 19:59 Last Admin: 09/07/20 20:08 Dose: 4 mg Documented by: [id number] Ondansetron HCl (Ondansetron Inj 2 Mg/Ml 2 Ml Vial) 4 mg IV NOW STA Stop: 09/07/20 16:39 Last Admin: 09/07/20 17:07 Dose: 4 mg Documented by: [id number] Potassium Chloride (Potassium Chloride 20 Meq Tabcr) 40 meq PO NOW STA Stop: 09/07/20 22:13 Last Admin: 09/07/20 22:51 Dose: 40 meq Documented by: [id number] Imaging Data Radiologist's Impression: ABDOMEN AND PELVIS CT WITH IV CONTRAST CT DOSE: 510.10 mGy.cm HISTORY: Acute abdominal cramping with bloody stools. poss colitis, divertic TECHNIQUE: Multiaxial CT images of the abdomen and pelvis were performed following the IV administration of 94 cc of Optiray 320, A dose lowering technique was utilized adhering to the principles of ALARA. COMPARISON STUDY: CT abdomen and pelvis 07/22/2020 FINDINGS: Pulmonary metastasis of the lung bases redemonstrated. Index nodule the posterior basal segment left lower lobe measures 1.5 cm on image 50 series 3, unchanged. These overall appears generally stable from comparison. Prior pulmonary resection of the inferior segment lingula. Pneumatosis or p neumoperitoneum. Imaged inferior cardiac chambers are unremarkable. Coronary artery calcifications. Mild splenomegaly. Calcified granulomata of the spleen. Mild generalized pancreatic atrophy. Unremarkable adrenal glands. Gallbladder and liver are unremarkable. Patency of the hepatic and portal veins. Unremarkable kidneys. No hydronephrosis. Mild prostamegaly. Bladder wall thickening with mild perivesicular stranding. Calcified plaque of the abdominal aorta without aneurysm. No adenopathy. Mild nonspecific distal esophageal wall thickening with tiny hiatal hernia. No small bowel obstruction. Air-fluid levels throughout the colon. Postoperative changes of prior partial sigmoid colon resection with colocolonic anastomosis. There is diffuse wall thickening throughout the colon with pericolonic stranding. Noninflamed appendix. Mild diastases recti. Tiny fat filled periumbilical hernia. Subcentimeter sclerotic focus of the left ischial tuberosity is unchanged. No definite evidence of skele rose metastasis. IMPRESSION: 1. Diffuse colonic wall thickening with pericolonic stranding is suggestive of a nonspecific pancolitis, likely infectious or inflammatory. Associated colonic air-fluid levels are suggestive of diarrheal illness. 2. No bowel obstruction or pneumoperitoneum. 3. No evidence of intra-abdominal or intrapelvic metastatic disease. 4. Pulmonary metastasis redemonstrated. 5. Additional findings as above. Discharge Plan Visit Data Chief Complaint: GI Assessment Stated Complaint: AB CRAMPING, GI BLEED, URINARY SX ED Provider: Bernardo Poe Discharge Problem: Lower abdominal pain, Colitis, Heme positive stool, Acute hyponatremia Patient Disposition: Admitted As Inpatient Condition: Fair Discharge Instructions Interventions: ED Discharge Assessment Last Done: 09/07/20 22:00
[2020-09-07] MEDS ORDERED: SODIUM CHLORIDE 0.9% 1000ML 1,000 ML IV SCH (16:45)
[2020-09-07 17:10] LABS: Hematocrit (blood only) 38.7 % (42-52); Hemoglobin 13.5 g/dL (14.0-18.0); Mean Corpuscular Hemoglobin 31.1 pg (25-34); Mean Corpuscular Hgb Conc 34.9 g/dL (32-36); Mean Corpuscular Volume 89.2 fL (80-100); Mean Platelet Volume 9.2 fL (7.4-10.4); Platelet Count 166 K/uL (130-400); RDW Coefficient of Variation 13.5 % (11.5-14.5); RDW Standard Deviation 44.4 fL (36.4-46.3); Red Blood Count 4.34 M/uL (4.7-6.1); White Blood Count 2.04 K/uL (4.8-10.8)
[2020-09-07 17:29] LABS: Albumin Level 2.8 gm/dl (3.4-5.0); BUN Creatinine Ratio 17.1 (10-20); Calcium 9.2 mg/dl (8.5-10.1); Creatinine Clr Calc Pharmacy 128.5 ml/min; Potassium 3.3 mmol/L (3.5-5.1)
[2020-09-07 17:32] LABS: Albumin Globulin Ratio 0.7 (0.9-2); Bilirubin,Total 1.3 mg/dl (0.2-1); Globulin 4.1 gm/dl (2.5-4.0); Total Protein 6.9 gm/dl (6.4-8.2)
[2020-09-07 17:40] LABS: Basophils # (auto) 0.01 K/uL (0-0.2); Basophils % (auto) 0.5 %; Eosinophils # (auto) 0.02 K/uL (0-0.5); Immature Granulocytes # (auto) 0.02 K/uL (0.00-0.02); Lymphocytes # (auto) 0.34 K/uL (1.2-3.4); Lymphocytes % (auto) 16.7 %; Monocytes # (auto) 0.56 K/uL (0.11-0.59); Monocytes % (auto) 27.5 %; Neutrophils # (auto) 1.09 K/uL (1.4-6.5); Neutrophils % (auto) 53.3 %; Toxic Granulation 1+; Toxic Vacuolation 1+
[2020-09-07] MEDS ORDERED: ACETAMINOPHEN 1,000 MG/100 ML VIAL IV STA (17:45)
[2020-09-07] MEDS ORDERED: IOVERSOL 100ml IV ONE (17:51)
--- NOTE | 2020-09-07 18:10 | CT Scan Report ---
ABDOMEN AND PELVIS CT WITH IV CONTRAST CT DOSE: 510.10 mGy.cm HISTORY: Acute abdominal cramping with bloody stools. poss colitis, divertic TECHNIQUE: Multiaxial CT images of the abdomen and pelvis were performed following the IV administrat ion of 94 cc of Optiray 320, A dose lowering technique was utilized adhering to the principles of AL JOHN. COMPARISON STUDY: CT abdomen and pelvis 07/22/2020 FINDINGS: Pulmonary metastasis of the lung bases redemonstrated. Index nodule the posterior basal seg ment left lower lobe measures 1.5 cm on image 50 series 3, unchanged. These overall appears generally stable from comparison. Prior pulmonary resection of the inferior segment lingula. Pneumatosis or pn eumoperitoneum. Imaged inferior cardiac chambers are unremarkable. Coronary artery calcifications. Mi ld splenomegaly. Calcified granulomata of the spleen. Mild generalized pancreatic atrophy. Unremarkab le adrenal glands. Gallbladder and liver are unremarkable. Patency of the hepatic and portal veins. Unremarkable kidneys. No hydronephrosis. Mild prostamegaly. Bladder wall thickening with mild perives icular stranding. Calcified plaque of the abdominal aorta without aneurysm. No adenopathy. Mild nonsp ecific distal esophageal wall thickening with tiny hiatal hernia. No small bowel obstruction. Air-flu id levels throughout the colon. Postoperative changes of prior partial sigmoid colon resection with c olocolonic anastomosis. There is diffuse wall thickening throughout the colon with pericolonic strand ing. Noninflamed appendix. Mild diastases recti. Tiny fat filled periumbilical hernia. Subcentimeter sclerotic focus of the left ischial tuberosity is unchanged. No definite evidence of skeletal metasta sis. IMPRESSION: 1. Diffuse colonic wall thickening with pericolonic stranding is suggestive of a nonspecific pancolit is, likely infectious or inflammatory. Associated colonic air-fluid levels are suggestive of diarrhea l illness. 2. No bowel obstruction or pneumoperitoneum. 3. No evidence of intra-abdominal or intrapelvic metastatic disease. 4. Pulmonary metastasis redemonstrated. 5. Additional findings as above. ACT 112: Negative or not required by law. The above report was generated using voice recognition software. It may contain grammatical, syntax o r spelling errors. Electronically signed by: Sin Gonzalez M.D. 09/07/2020 6:09 PM
[2020-09-07] MEDS ORDERED: MoRPHine SULFATE 4 MG/ML 1 ML CARP\\VIAL IV STA (19:58)
--- NOTE | 2020-09-07 20:43 | History & Physical Report ---
Date of Service September 07, 2020 Assessment & Plan (1) Colitis: 55yo C male with metastatic adenocarcinoma of the colon presenting with bloody diarrhea x [address] with diffuse colonic wall thickening with pericolonic stranding suggestive of a nonspecific pancolitis, likely infectious or inflammatory. Patient currently afebrile, HD stable, non-toxic in appearance. H/H stable -Check stool culture and c. diff -Pain control with Morphine 2mg IV q 4 hours PRN -IVF and electrolyte repletion as needed Present on Admission?: Yes (2) Adenocarcinoma of colon: Noted, patient on chemotherapy with last treatment 4 days ago. He is neutropenic but not febrile. Diffuse pain, worst in lower abdomen. -Continue Clonazepam 1mg po BID PRN -Continue Fentanyl patch -Continue Oxycodone -Morphine 2mg IV q 4 hours -Consider palliative care consultation Present on Admission?: Yes (3) Hyponatremia: Fc=232, patient with history of hyponatremia. Appears volume contracted on exam -Hold HCTZ -IVF as below -Repeat chemistry in AM Present on Admission?: Yes (4) High blood pressure: Stable at present -Continue Atenolol 50mg po BID -Continue Lisinopril Present on Admission?: Yes (5) GERD (gastroesophageal reflux disease): Chronic. Stable -Continue Omeprazole F/E/N - LR at 125mL/hr x 2 L, Kdur repletion with 40mEq PO, Regular diet as tolerated Ppx - SCDs Code - Full Dispo - Admit to medical Present on Admission?: Yes History of Present Illness Chief Complaint: bloody diarrhea Primary Care Provider: Srinivasan Nguyen DO Nestor Villeda is a 55yo C male with history of adenocarcinoma of the rectosigmoid colon diagnosed 03/14/18 with metastases to lung. He completed treatment with Xeloda/Oxaliplatin and Leucovorin (Oxaliplatin discontinued and Xeloda decreased as patient developed neuropathy). Found with disseminated pulmonary mets in October 2018 and was treated with CPT-11, 5-FU leucovorin and Bevacizumab. He completed 12 cycles on 07/10/19 then continued with maintenance bevacizumab. Repeat scans unfortunately revealed progressive disease. Patient was started on Lonsurf. He follows with Dr. Nguyen. Patient presents today with complaint of lower abdominal pain, cramping and watery diarrhea with bright red blood which started 3 days ago. He has been having 3-4 bloody bowel movements per day. He denies fever/chills. Denies nausea/vomiting/abdominal bloating. He does have some dizziness and feels unsteady on his feet. Also with poor appetite and decreased PO intake. Last chemo treatment 4 days ago. ER Course: Tylenol, Zofran x 4mg IV, NSS x 1L, Morphine 6mg IV, 4mg IV Allergies Allergy/AdvReac Type Severity Reaction Status Date / Time No Known Allergies Allergy Verified 09/07/20 18:59 Home Medications Home Medications Medication Instructions Recorded Confirmed Type atenolol [Tenormin] 50 mg PO BID 09/07/20 09/07/20 History clonazepam [Klonopin] 1 mg PO BID PRN 09/07/20 09/07/20 History fentanyl [Duragesic] 50 mcg TOPICAL [id number] 09/07/20 09/07/20 History hydrochlorothiazide 25 mg PO DAILY 09/07/20 09/07/20 History lisinopril [Zestril] 40 mg PO DAILY 09/07/20 09/07/20 History omeprazole 40 mg PO DAILY 09/07/20 09/07/20 History ondansetron HCl 8 mg PO Q8 PRN 09/07/20 09/07/20 History oxycodone 10 mg PO Q4 PRN 09/07/20 09/07/20 History Past Med/Surg History Medical History (Updated 09/07/20 @ 20:42 by Naomi Chirinos DO) Colitis Colon cancer colon resection + chemo Current every day smoker GERD (gastroesophageal reflux disease) Hypertension Pulmonary nodules Surgical History (Updated 11/28/19 @ 12:00 by Twyla Garrison RN) History of colon resection 2018 History of colonoscopy History of lung surgery (11/28/19) Left thoracoscopy with biopsy, left lower lobe nodule. Dr. Alvarenga 11-28-19 History of tonsillectomy History of tooth extraction History of vascular access device Family History Father Cancer Colorectal cancer Social History (Updated 11/25/19 @ 15:28 by Twyla Garrison, DANNY) Smoking Status: Former smoker packs per day: 0.5; Cigarettes Per Day: 1/2 ppd; Second Hand Exposure: Yes (as a child); Hx Alcohol Use: Yes Alcohol type: beer Hx Substance Use: No Preferred Language: Panamanian Communication Ability: Effective Ice Handler Required: No Beliefs That Will Affect Care: None marital status: Single Current Living Situation: Alone current occupational status: employed 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 Feels Safe at Home: Yes Assistive Devices: None Review of Systems Review of Systems: All systems reviewed & are unremarkable except as noted in HPI & below Physical Exam Physical Exam: General: patient resting comfortably, NAD, non-toxic in appearance, AA&O x 4 Skin: warm, dry, intact, no rashes or lesions HEENT: NC/AT, PERRL, EOMI, anicteric sclera, conjunctiva without injection, external ear normal to inspection and nontender, nares patent, moist mucus membranes, dentition intact, no oropharyngeal lesions, neck supple, trachea midline, no LAD, no thyromegaly, no JVD Heart: +S1/S2, regular, no m/r/g, port left chest wall, non-tender, no bleeding/drainage/erythema Lungs: equal air entry bilaterally, no rales/rhonchi/wheezes Abd: +BS, soft, ND, diffuse tenderness without rebound/guarding or peritoneal signs no masses/organomegaly/ascites Ext: warm, 2+ pulses in UE/LE bilaterally, no clubbing/cyanosis or edema Neuro: nonfocal, patient AA&O x 4, speech intact, no facial droop, moving all extremities on command with equal strength 5/5 Results & Data Results & Data ([facility]) Vital Signs (Past 12 Hours) Vital Signs Temp Pulse Resp BP Pulse Ox 09/07/20 20:01 97 H 18 150/90 H 97 09/07/20 20:00 99 H 14 96 09/07/20 19:50 99 H 99 09/07/20 19:40 90 96 09/07/20 19:31 90 141/81 H 94 09/07/20 19:30 91 H 95 09/07/20 19:20 93 H 95 09/07/20 19:10 98 09/07/20 19:07 97 09/07/20 17:40 98 H 23 99 09/07/20 17:31 96 H 20 167/86 H 97 09/07/20 17:30 92 H 19 97 09/07/20 17:20 102 H 17 98 10/27/20 17:10 100 H 19 95 09/07/20 17:00 112 H 25 H 146/102 H 97 09/07/20 16:50 117 H 19 98 09/07/20 16:40 106 H 15 96 09/07/20 16:31 113 H 16 131/100 97 09/07/20 16:30 37.7 C H 112 H 16 176/120 H 97 09/07/20 16:29 112 H 16 97 09/07/20 16:26 113 H 16 176/120 H 97 Laboratory Results Lab Results 09/07/20 09/07/20 09/07/20 Range/Units 16:57 16:57 16:57 WBC 2.04 L (4.8-10.8) K/uL RBC 4.34 L (4.7-6.1) M/uL Hgb 13.5 L (14.0-18.0) g/dL Hct 38.7 L (42-52) % MCV 89.2 (80-100) fL MCH 31.1 (25-34) pg MCHC 34.9 (32-36) g/dL RDW Std Deviation 44.4 (36.4-46.3) fL RDW Coeff of Gerald 13.5 (11.5-14.5) % Plt Count 166 (130-400) K/uL MPV 9.2 (7.4-10.4) fL Immature Gran % (Auto) 1.0 % Neut % (Auto) 53.3 % Lymph % (Auto) 16.7 % Powell % (Auto) 27.5 % Eos % (Auto) 1.0 % Baso % (Auto) 0.5 % Neut # (Auto) 1.09 L (1.4-6.5) K/uL Lymph # (Auto) 0.34 L (1.2-3.4) K/uL Powell # (Auto) 0.56 (0.11-0.59) K/uL Eos # (Auto) 0.02 (0-0.5) K/uL Baso # (Auto) 0.01 (0-0.2) K/uL Immature Gran # (Auto) 0.02 (0.00-0.02) K/uL Toxic Granulation 1+ Toxic Vacuolation 1+ Sodium 123 L (136-145) mmol/L Potassium 3.3 L (3.5-5.1) mmol/L Chloride 88 L (98-107) mmol/L Carbon Dioxide 28 (21-32) mmol/L Anion Gap 7.0 (3-11) BUN 12 (7-18) mg/dl Creatinine 0.70 (0.6-1.4) mg/dl Est Cr Clr Drug Dosing 128.5 ml/min Est GFR ( Amer) 124.0 Est GFR (Non-Af Amer) 107.0 BUN/Creatinine Ratio 17.1 (10-20) Glucose 112 H (70-99) mg/dl Calcium 9.2 (8.5-10.1) mg/dl Total Bilirubin 1.3 H (0.2-1) mg/dl AST 11 L (15-37) U/L ALT 23 (12-78) U/L Alkaline Phosphatase 88 (45-117) U/L Total Protein 6.9 (6.4-8.2) gm/dl Albumin 2.8 L (3.4-5.0) gm/dl Globulin 4.1 H (2.5-4.0) gm/dl Albumin/Globulin Ratio 0.7 L (0.9-2) Lipase 35 L (73-393) U/L Blood Type O Positive Antibody Screen NEGATIVE Diagnostic Findings ABDOMEN AND PELVIS CT WITH IV CONTRAST CT DOSE: 510.10 mGy.cm HISTORY: Acute abdominal cramping with bloody stools. poss colitis, divertic TECHNIQUE: Multiaxial CT images of the abdomen and pelvis were performed follo wing the IV administration of 94 cc of Optiray 320, A dose lowering technique was utilized adhering to the principles of ALARA. COMPARISON STUDY: CT abdomen and pelvis 07/22/2020 FINDINGS: Pulmonary metastasis of the lung bases redemonstrated. Index nodule the posterior basal segment left lower lobe measures 1.5 cm on image 50 series 3, unchanged. These overall appears generally stable from comparison. Prior pulmonary resection of the inferior segment lingula. Pneumatosis or pneumoperitoneum. Imaged inferior cardiac chambers are unremarkable. Coronary artery calcifications. Mild splenomegaly. Calcified granulomata of the spleen. Mild generalized pancreatic atrophy. Unremarkable adrenal glands. Gallbladder and liver are unremarkable. Patency of the hepatic and portal veins. Unremarkable kidneys. No hydronephrosis. Mild prostamegaly. Bladder wall thickening with mild perivesicular stranding. Calcified plaque of the abdominal aorta without aneurysm. No adenopathy. Mild nonspecific distal esophageal wall thickening with tiny hiatal hernia. No small bowel obstruction. Air-fluid levels throughout the colon. Postoperative changes of prior partial sigmoid colon resection with colocolonic anastomosis. There is diffuse wall thickening throughout the colon with pericolonic stranding. Noninflamed appendix. Mild diastases recti. Tiny fat filled periumbilical hernia. Subcentimeter sclerotic focus of the left ischial tuberosity is unchanged. No definite evidence of skeletal metastasis. IMPRESSION: 1. Diffuse colonic wall thickening with pericolonic stranding is suggestive of a nonspecific pancolitis, likely infectious or inflammatory. Associated colonic air-fluid levels are suggestive of diarrheal illness. 2. No bowel obstruction or pneumoperitoneum. 3. No evidence of intra-abdominal or intrapelvic metastatic disease. 4. Pulmonary metastasis redemonstrated. 5. Additional findings as above. ACT 112: Negative or not required by law. The above report was generated using voice recognition software. It may contain grammatical, syntax or spelling errors. Electronically signed by: Sin Gonzalez M.D. 09/07/2020 6:09 PM Dictated: 09/07/201803 Transcribed: 09/07/201803 Code Status & VTE Plan VTE Prophylaxis Plan VTE Prophylaxis will be ordered: Yes PG Care Time/CCT Total # of Minutes Spent Total Time Spent with Patient: Total time spent is greater than 50% in coordination of care (as documented) at patient's floor/unit and/or counseling patient: Coding Level of Care Code 37959 Initial Inpt Care Lvl 3 Diagnoses Colitis K52.9 Adenocarcinoma of colon C18.9 Hyponatremia E87.1 High blood pressure I10 Hypertension type: essential hypertension GERD (gastroesophageal reflux disease) K21.9 Esophagitis presence: esophagitis presence not specified (1) High blood pressure Hypertension type: essential hypertension Qualified Code(s): I10 - Essential (primary) hypertension (2) GERD (gastroesophageal reflux disease) Esophagitis presence: esophagitis presence not specified Qualified Code(s): K21.9 - Gastro-esophageal reflux disease without esophagitis
[2020-09-07] MEDS ORDERED: POTASSIUM CHLORIDE CRTAB 20 MEQ TABCR PO STA (22:12)
[2020-09-07] MEDS ORDERED: ACETAMINOPHEN 325 MG TAB PO PRN (22:12)
[2020-09-07] MEDS ORDERED: MoRPHine SULFATE 2 MG/ML CARP IV PRN (22:12)
[2020-09-07] MEDS ORDERED: ONDANSETRON INJ 2 MG/ML 2 ML VIAL IV PRN (22:12)
[2020-09-07] MEDS: LACTATED RINGER'S 1,000 ML IV SCH (22:25)
[2020-09-07] MEDS: oxyCODONE HCL IR 5 MG TAB (IMMEDIATE RELEASE) PO PRN (22:33)
[2020-09-07] MEDS: ATENOLOL 50 MG TABLET PO SCH (22:52)
[2020-09-07 22:55] LABS: Magnesium 2.1 mg/dl (1.8-2.4); Phosphorus 2.2 mg/dl (2.5-4.9)
[2020-09-08] MEDS: CHECK fentaNYL PATCH PLACEMENT SCH ×4 (01:19→23:31)
[2020-09-08] MEDS: oxyCODONE HCL IR 5 MG TAB (IMMEDIATE RELEASE) PO PRN ×5 (03:15→21:16)
[2020-09-08] MEDS ORDERED: BACLOFEN 10 MG TAB PO PRN ×2 (04:29→04:55)
[2020-09-08 04:44] LABS: Appearance Urine Clear (Clear); Bacteria Urine Automated Negative (Negative); Blood Urine Trace (Negative); Color Urine Dark Yellow; Glucose Urine UA Negative (Negative); Ketones Urine 1+ (Negative); Leukocyte Esterase Urine Negative (Negative); Nitrite Urine Negative (Negative); Protein Urine 1+ (Negative); Specific Gravity Urine > 1.045 (1.000-1.030); Urobilinogen Urine Negative (Negative)
[2020-09-08 04:52] LABS: Bilirubin Urine Negative (Negative); Ictotest Urine Negative (Negative)
[2020-09-08 05:25] LABS: Hematocrit (blood only) 37.2 % (42-52); Mean Corpuscular Hemoglobin 31.1 pg (25-34); Mean Corpuscular Hgb Conc 34.9 g/dL (32-36); Mean Platelet Volume 9.3 fL (7.4-10.4); Platelet Count 176 K/uL (130-400); RDW Coefficient of Variation 13.4 % (11.5-14.5); RDW Standard Deviation 43.2 fL (36.4-46.3); Red Blood Count 4.18 M/uL (4.7-6.1); White Blood Count 2.46 K/uL (4.8-10.8)
[2020-09-08 05:50] LABS: Albumin Level 2.6 gm/dl (3.4-5.0); BUN Creatinine Ratio 16.8 (10-20); Bilirubin Direct 0.6 mg/dl (0-0.2); Calcium 8.9 mg/dl (8.5-10.1); Creatinine Clr Calc Pharmacy 155.1 ml/min; Est GFR (Non-African American) 115.6; Potassium 3.6 mmol/L (3.5-5.1)
[2020-09-08 05:52] LABS: Bilirubin,Total 1.3 mg/dl (0.2-1); Total Protein 6.3 gm/dl (6.4-8.2)
[2020-09-08] MEDS: NICOTINE 14 MG/24 HR PATCH TD SCH (05:54)
[2020-09-08 06:02] LABS: Dohle Bodies 1+; Eosinophils % (auto) 4.1 %; Immature Granulocytes # (auto) 0.02 K/uL (0.00-0.02); Immature Granulocytes % (auto) 0.8 %; Lymphocytes # (auto) 0.49 K/uL (1.2-3.4); Lymphocytes % (auto) 19.9 %; Monocytes % (auto) 24.4 %; Neutrophils # (auto) 1.25 K/uL (1.4-6.5); Neutrophils % (auto) 50.8 %; Toxic Granulation 1+
[2020-09-08] MEDS: LACTATED RINGER'S 1,000 ML IV SCH (06:22)
[2020-09-08] MEDS: PANTOprazole 40 MG TAB PO SCH (08:18)
[2020-09-08] MEDS: lisinopril 40 MG TAB PO SCH (08:18)
[2020-09-08] MEDS: ATENOLOL 50 MG TABLET PO SCH ×2 (08:18→22:01)
[2020-09-08] MEDS ORDERED: NICOTINE 7 MG/24 HR TDSY TD SCH (09:00)
--- NOTE | 2020-09-08 09:18 | Consultation Report ---
DATE OF CONSULTATION: 09/08/2020 REASON FOR CONSULTATION: Profuse bloody diarrhea in a 55-year-old gentleman with metastatic colorectal cancer. HISTORY OF PRESENT ILLNESS: Mr. Villeda is a pleasant but unfortunate 55-year-old gentleman well known to [facility], currently under my care with end-stage metastatic colorectal cancer involving his lungs predominantly. Mr. Villeda was originally diagnosed back in March of 2018 with stage III disease; unfortunately despite treatment, developed metastatic disease to his lungs in October 2019. This gentleman has had several chemotherapeutic regimens. Most recently started on salvage irinotecan and Erbitux as his disease is KRAS wild type. He received his initial course on 08/30/2020 and was due to have his second dose this past Sunday. Unfortunately, last Sunday he developed profound crampy initially watery diarrhea which has since turned bloody. He estimates several stools, both Sunday into Sunday and despite Imodium continued to be symptomatic. He again missed his chemotherapy appointment on Sunday and presented to the Emergency Room last night. CT scan of the chest, abdomen and pelvis revealed diffuse colonic wall thickening, pericolonic stranding suggestive of a nonspecific pancolitis, likely infectious or inflammatory. Within the chest revealed significant progression of extensive pulmonary metastatic disease as compared to his CT scan from 10/2019, which is not surprising. Mr. Villeda has visited several Cancer Centers in [place], none of which have offered him any protocols per se, made formal recommendations which were followed clearly. Mr. Villeda has received all available treatments and irinotecan is being given for the second time. He is feeling a little bit better since receiving IV hydration, but continues to boo with crampy abdominal pain nonetheless. PAST MEDICAL HISTORY: Gastroesophageal reflux disease, hypertension and metastatic colorectal cancer. PAST SURGICAL HISTORY: Colon resection in 2018, lung surgery with a biopsy left lower lobe nodule by Dr. Alvarenga on 11/28/2019, history of tonsillectomy and tooth extraction as well as MediPort insertion. MEDICATIONS: Oxycodone 10 mg p.o. q. 4 hours p.r.n., Zofran 8 mg p.o. q. 8 hours p.r.n. for nausea, omeprazole 40 mg p.o. daily, Zestril 40 mg p.o. daily, hydrochlorothiazide 25 mg p.o. daily, fentanyl 50 mcg topically q. 72 hours, clonazepam 1 mg p.o. b.i.d., atenolol 50 mg p.o. b.i.d. ALLERGIES: No known drug allergies. SOCIAL HISTORY: The patient is , lives independently. He consumes alcohol and continues to smoke a half pack of cigarettes per day. Negative for illicit substances. FAMILY HISTORY: Positive for colorectal cancer involving his father. REVIEW OF SYSTEMS: CONSTITUTIONAL: As per HPI, most notably for crampy abdominal pain with watery bloody diarrhea. No fevers, chills or sweats. He is progressively anorexic. No definite weight loss. SKIN: No rashes or lesions. No history of dermatoses. HEENT: Negative for headaches, lightheadedness or dizziness. No visual or hearing deficits. No sinus symptoms, sore throat or dysphagia. LYMPH: No history of lymphoproliferative disease. CARDIAC: Positive history of pulmonary metastatic disease. He is not acutely short of breath or dyspneic on exertion. GASTROINTESTINAL: Positive for diffuse, crampy abdominal pain. Positive for bloody diarrhea. GENITOURINARY: No hematuria, dysuria, urinary incontinence. PSYCHIATRIC: Positive for anxiety. ENDOCRINE: Negative for diabetes or thyroid disease. NEUROLOGIC: Negative for seizure, stroke, or migraine headaches. MUSCULOSKELETAL: Negative for focal muscle weakness or skeletal pain. HEMATOLOGIC: Positive for cytopenias attributable to current chemotherapy. PHYSICAL EXAMINATION: GENERAL: Very pleasant unfortunate 55-year-old gentleman who is in no acute distress. VITAL SIGNS: Temperature 36.6, pulse 89, respiratory rate 20, blood pressure 142/85. SKIN: Warm, dry, noncyanotic without petechia, rash or ecchymosis. HEENT: Head is atraumatic, normocephalic. Eyes: PERRLA, EOMI. Sclerae nonicteric. No conjunctival injection. Nares are patent without rhinorrhea or discharge. Throat is clear. Tongue is midline. Mucous membranes are moist. NECK: Supple without JVD or thyromegaly. LYMPHATICS: No cervical, supraclavicular, axillary or inguinal palpable nodes. HEART: Regular rate and rhythm. No clicks, rubs, murmurs or gallops. LUNGS: Clear to auscultation bilaterally. ABDOMEN: Diffusely tender. No rigidity or guarding, however. EXTREMITIES: No clubbing, cyanosis or edema. MUSCULOSKELETAL: Strength is equal in all 4 quadrants. NEUROLOGICALLY: He is awake, alert and oriented x3. Cranial nerves are intact. LABORATORY DATA: WBC count 2460, hemoglobin 13, platelet count 176,000. His absolute neutrophil count is 1250. Sodium 124, potassium 3.6, chloride 90, carbon dioxide 29, creatinine 0.58, BUN 10. Phosphorus is decreased 2.2, direct bilirubin 0.6, albumin 2.6. IMPRESSION: 1. Pancolitis (inflammatory). 2. Metastatic adenocarcinoma of the colon. 3. Hypertension. 4. Hyponatremia. 5. Hypoalbuminemia. PLAN: I engaged in a lengthy discussion with Juan Carlos at bedside. His admission to hospital is not surprising. This gentleman has been heavily pretreated over the past couple of years for metastatic colorectal cancer essentially emptying out the medicine cabinet in regards to viable treatments for colorectal cancer. Juan Carlos has travelled the country looking for therapy that may extend or perhaps save his life. Juan Carlos fully understands he is not curable. I have engaged in discussions in the past with Mr. Villeda in this regard speaking specifically about quality of life versus quantity. Engaged in a similar discussion this morning. While I may be able to extend his life by providing additional chemotherapy, his life quality will most certainly diminish over time. Juan Carlos is now showing a general clinical decline, which is not uncommon in cancer patients at endstage. He is having considerable pain issues which have been managed by me as outpatient. I have asked Juan Carlos to consider options moving forward. Certainly if he opts to continue chemotherapy we will significantly reduce the dose of irinotecan moving forward as I believe CPT-11 is the inciting agent causing his current difficulties. We will make sure he is seen upon discharge and will continue to follow him through hospitalization. Thank you very much for allowing me to participate in his care. If you have any questions or concerns, feel free to contact me at any time. DANIELAD
[2020-09-08] MEDS: BACLOFEN 10 MG TAB PO PRN ×2 (12:28→21:15)
[2020-09-08] MEDS: HEPARIN 100 UNIT/ML 5ML FLUSH FLUSH PRN (14:33)
[2020-09-08] MEDS: HYDROcodone/HOMATROPINE SYRUP 5MG/1.5MG 5ML UDP PO PRN (14:33)
[2020-09-08] MEDS: clonazePAM 1 MG TAB PO PRN (16:03)
--- NOTE | 2020-09-08 19:21 | Hospitalist Progress Note ---
Date of Service September 08, 2020 Assessment & Plan (1) Colitis: CT scan with nonspecific pancolitis Patient is neutropenic and had a T-max of 37.7 Blood pressure in the 140s and 150s now with a systolic pressure 105 We will empirically start Zosyn and Flagyl while awaiting stool cultures Continue with analgesia Follow supportively (2) Lung cancer: VATS procedure in November [address] Alvarenga Biopsies were positive for adenocarcinoma consistent with metastatic spread from the colon Further treatment per Dr. Nguyen (3) Multiple pulmonary nodules: Consistent with metastatic colon cancer Status post biopsy in November 2019 No further need for surveillance (4) Adenocarcinoma of colon: Progressive disease with metastatic spread to the lungs Poorly tolerated most recent chemotherapy Follow with Dr. Patrick Nguyen had discussion with patient regarding palliative care Continue supportive care (5) GERD (gastroesophageal reflux disease): Pantoprazole (6) Hyponatremia: Sodium level is consistently been in the 120s since 03/19/2020 Sodium on admission was 124 mmol/L At this point we will monitor but not treat (7) Intractable hiccups: Continue baclofen as needed Patient was prescribed 5 mg which is the typical dose for hiccups. However, patient has been using 20 mg doses with relief. Secondary to patient's malignant state, will continue 20 mg of baclofen as needed (8) DVT prophylaxis: Patient is at high risk for thrombotic disease due to metastatic malignancy However, patient with bloody stools from adenocarcinoma of the colon Patient's hemoglobin is stable We will discuss chemical prophylaxis with patient tomorrow based on labs For now patient is ambulating frequently in the hallways Continue to monitor (9) Tobacco abuse: Patient with most likely end-stage metastatic adenocarcinoma of the colon He continues to smoke about a half a pack per day We will not discussed tobacco abstention at this time We will provide a nicotine patch during his inpatient stay Admission and Anticipated Discharge Date Admission Date: September 07, 2020 Subjective Attending: Dr. Binh Cameron This is a 55-year-old male with metastatic adenocarcinoma of the colon presented yesterday with abdominal pain and bloody stool. CT scan of the abdomen revealed diffuse colonic wall thickening with pericolonic stranding suggestive of nonspecific pancolitis. The patient recently had chemotherapy. He is extremely weak and complains of abdominal cramping. He has been on baclofen for hiccups as well as cramping which seems to have some resolve. He denies any fever or chills. He has no nausea or vomiting. He does have generalized pain. Labs reveal neutropenia. Review of Systems Review of Systems: All systems reviewed & are unremarkable except as noted in Subjective Physical Exam Physical Exam: GENERAL : No acute distress. Appears weak and ill EYES: No icterus, gaze conjugate NOSE: No evidence of epistaxis MOUTH: No lesions or candidiasis. Mucosa is moist NECK: Supple LUNGS: CTA B/L, no wheezes, rales or rhonchi HEART: Regular, rate controlled ABDOMEN: Soft, tender to palpation, ND, BS Present EXTREMITIES: No LE edema, pedal pulses intact NEURO: A&OX3 Results & Data Results & Data ([facility]) Vital Signs (Past 12 Hours) Vital Signs Temp Pulse Resp BP Pulse Ox 09/08/20 15:50 36.4 C L 78 18 105/72 98 Laboratory Results 09/08/20 04:57 09/08/20 04:57 Diagnostic Findings On admission CT with diffuse colonic wall thickening with pericolonic stranding suggestive of a nonspecific pancolitis, likely infectious or inflammatory. CT with diffuse colonic wall thickening with pericolonic stranding suggestive of a nonspecific pancolitis, likely infectious or inflammatory PG Care Time/CCT Total # of Minutes Spent Total Time Spent with Patient: Total time spent is greater than 50% in coordination of care (as documented) at patient's floor/unit and/or counseling patient: 40 minutes Coding Level of Care Code 67494 Subseq Hosp Care Lvl 2 Diagnoses Colitis K52.9 Lung cancer C34.90 Multiple pulmonary nodules R91.8 Adenocarcinoma of colon C18.9 GERD (gastroesophageal reflux disease) K21.9 Esophagitis presence: esophagitis presence not specified Hyponatremia E87.1 Intractable hiccups R06.6 DVT prophylaxis Z29.9 Tobacco abuse Z72.0 (1) GERD (gastroesophageal reflux disease) Esophagitis presence: esophagitis presence not specified Qualified Code(s): K21.9 - Gastro-esophageal reflux disease without esophagitis
[2020-09-08] MEDS ORDERED: PIPERACILL/TAZOBAC CONSULT ACTIVE PRN (19:23)
[2020-09-08] MEDS ORDERED: PIPERACILLIN/TAZOBACTAM 3.375 GM in DEXTROSE 5% 100 ML IV ONE (21:00)
[2020-09-08] MEDS: metroNIDAZOLE 500 MG/100 ML BAG IV SCH (22:02)
[2020-09-09] MEDS: PIPERACILLIN/TAZOBACTAM 3.375 GM in DEXTROSE 5% 100 ML IV SCH ×3 (03:40→21:18)
[2020-09-09] MEDS: oxyCODONE HCL IR 5 MG TAB (IMMEDIATE RELEASE) PO PRN ×4 (06:05→21:43)
[2020-09-09] MEDS: metroNIDAZOLE 500 MG/100 ML BAG IV SCH ×3 (06:23→21:19)
--- NOTE | 2020-09-09 07:18 | XRay Report ---
XR chest 1V portable HISTORY: 55 years-old Male Neutropenia, lung cancer follow-up study in a patient with lung cancer. COMPARISON: Chest CT 07/22/2020 TECHNIQUE: Portable AP view of the chest FINDINGS: Cardiomediastinal and hilar silhouettes are within normal limits. Left subclavian [id number] ivon ter is unchanged. No pneumothorax, pleural effusion, overt pulmonary edema or airspace consolidation typical for pneumonia. Bilateral solid pulmonary nodules compatible pulmonary metastasis redemonstrat ed measuring up to approximately 10 mm on the left. Unchanged remote fracture of the posterior latera l left ninth rib. Degenerative changes of the shoulders and spine. IMPRESSION: 1. No acute process. 2. Innumerable pulmonary nodules compatible with patient's known pulmonary metastasis redemonstrated. ACT 112: Negative or not required by law. The above report was generated using voice recognition software. It may contain grammatical, syntax o r spelling errors. Electronically signed by: Sin Gonzalez M.D. 09/09/2020 7:16 AM
[2020-09-09 08:06] LABS: Hematocrit (blood only) 34.2 % (42-52); Hemoglobin 12.2 g/dL (14.0-18.0); Mean Corpuscular Hemoglobin 31.4 pg (25-34); Mean Corpuscular Hgb Conc 35.7 g/dL (32-36); Mean Corpuscular Volume 88.1 fL (80-100); Mean Platelet Volume 9.2 fL (7.4-10.4); Platelet Count 186 K/uL (130-400); RDW Coefficient of Variation 13.4 % (11.5-14.5); RDW Standard Deviation 43.2 fL (36.4-46.3); Red Blood Count 3.88 M/uL (4.7-6.1); White Blood Count 2.79 K/uL (4.8-10.8)
--- NOTE | 2020-09-09 08:13 | Progress Notes ---
DATE: 09/09/2020 DIAGNOSES: 1. Pancolitis (inflammatory). 2. Metastatic adenocarcinoma of the colon (pulmonary mets). 3. Hypertension. 4. Hyponatremia. 5. Profuse watery diarrhea. 6. Hypoalbuminemia. SUBJECTIVE: Juan Carlos was seen and examined at bedside this morning. He states diarrhea has improved in the last 24 hours. He denies fevers or chills. He is tolerating regular diet and continues on broad-spectrum antibiotics. Again, engaged in discussion regarding his future plans for therapeutics. He again expressed the desire to continue chemotherapy, but not in the immediate future. He wants time to recover and consider options moving forward. His pain seems to be well controlled. Nursing reports no overnight difficulties. OBJECTIVE: GENERAL: A very pleasant 55-year-old gentleman, awake, alert and appropriate, in no acute distress. VITAL SIGNS: Temperature 37.4, pulse 78, respiratory rate 20, blood pressure 116/63. SKIN: Without rash or lesion. HEENT: Oral mucosa without erythema or ulceration. HEART: Regular rate and rhythm. LUNGS: Clear to auscultation bilaterally. ABDOMEN: Soft, nontender, nondistended. EXTREMITIES: No clubbing, cyanosis or edema. NEUROLOGIC: He is grossly intact. LABORATORY DATA: Pending. IMPRESSION: 1. Diarrhea, attributable to chemotherapeutic effect. 2. Metastatic colorectal cancer. 3. Hypertension. 4. Hyponatremia. 5. Hypoalbuminemia. PLAN: Again, engaged in discussion with Juan Carlos at bedside. He expressed desire to continue his fight forward. Most likely if he desires to do so we will adjust his irinotecan dose most certainly or perhaps even discontinue and allow him to continue with Erbitux as a single agent. Clinically, he seems to be making some improvement. I discussed the case with the hospitalist concerning IV antibiotics moving forward as he continues to tolerate his regular diet. I think it would be reasonable to discharge him within the next 24 hours unless there is any new or concerning medical issues preventing discharge. Nonetheless, I have asked Juan Carlos to contact the office upon discharge. If he is here tomorrow morning and we will pay him a quick visit. Thank you for allowing me to participate in his care.
[2020-09-09] MEDS: NICOTINE 14 MG/24 HR PATCH TD SCH (08:20)
[2020-09-09] MEDS: ATENOLOL 50 MG TABLET PO SCH ×2 (08:20→21:18)
[2020-09-09] MEDS: BACLOFEN 10 MG TAB PO PRN ×2 (08:20→13:07)
[2020-09-09] MEDS: lisinopril 40 MG TAB PO SCH (08:20)
[2020-09-09] MEDS: PANTOprazole 40 MG TAB PO SCH (08:20)
[2020-09-09] MEDS: CHECK fentaNYL PATCH PLACEMENT SCH ×2 (08:27→15:42)
[2020-09-09] MEDS: HEPARIN 100 UNIT/ML 5ML FLUSH FLUSH PRN (08:28)
[2020-09-09 08:29] LABS: Basophils # (auto) 0.02 K/uL (0-0.2); Basophils % (auto) 0.7 %; Dohle Bodies 1+; Eosinophils # (auto) 0.11 K/uL (0-0.5); Eosinophils % (auto) 3.9 %; Lymphocytes # (auto) 0.47 K/uL (1.2-3.4); Lymphocytes % (auto) 16.8 %; Monocytes # (auto) 0.88 K/uL (0.11-0.59); Monocytes % (auto) 31.5 %; Neutrophils # (auto) 1.31 K/uL (1.4-6.5); Neutrophils % (auto) 47.1 %; Toxic Granulation 2+
[2020-09-09 08:34] LABS: Albumin Level 2.1 gm/dl (3.4-5.0); BUN Creatinine Ratio 12.3 (10-20); Calcium 8.6 mg/dl (8.5-10.1); Creatinine Clr Calc Pharmacy 160.6 ml/min; Est GFR (African American) 135.9; Est GFR (Non-African American) 117.3; Potassium 2.7 mmol/L (3.5-5.1)
[2020-09-09 08:39] LABS: Albumin Globulin Ratio 0.6 (0.9-2); Bilirubin,Total 0.9 mg/dl (0.2-1); Globulin 3.7 gm/dl (2.5-4.0); Total Protein 5.8 gm/dl (6.4-8.2)
[2020-09-09] MEDS ORDERED: POTASSIUM CHLORIDE CRTAB 20 MEQ TABCR PO STA (09:39)
[2020-09-09] MEDS: HYDROcodone/HOMATROPINE SYRUP 5MG/1.5MG 5ML UDP PO PRN (09:40)
[2020-09-09] MEDS: POTASSIUM CHLORIDE / WTR 10 MEQ/100 ML PLCT IV SCH ×3 (10:34→12:44)
[2020-09-09] MEDS ORDERED: chlorproMAZINE HCL 25 MG TAB PO ONE (12:26)
[2020-09-09] MEDS: HYDROmorphone INJ 0.5 MG/0.5 ML SYR IV PRN (13:26)
--- NOTE | 2020-09-09 14:20 | Hospitalist Progress Note ---
Date of Service September 09, 2020 Assessment & Plan (1) Colitis: CT scan with nonspecific pancolitis Afebrile over the last 24 hours No evidence of sepsis Empirically started Zosyn and Flagyl 09/08/2020 Stool culture with Campylobacter * Will start a macrolide. No evidence of drug allergies. Will start azithromycin. Will avoid erythromycin as it can be used as a motility agent and patient is having diarrhea from his colon cancer Continue with analgesia Follow supportively (2) Hypokalemia: Most likely due to gastrointestinal losses Magnesium on 09/07/2020 was 2.1 Will replete with IV riders 10 mEq x 3 We will also give 40 mEq of p.o. potassium chloride Follow serial labs (3) Lung cancer: VATS procedure in November [address] Alvarenga Biopsies were positive for adenocarcinoma consistent with metastatic spread from the colon Further treatment per Dr. Nguyen (4) Multiple pulmonary nodules: Consistent with metastatic colon cancer Status post biopsy in November 2019 No further need for surveillance (5) Adenocarcinoma of colon: Progressive disease with metastatic spread to the lungs Poorly tolerated most recent chemotherapy Follow with Dr. Patrick Nguyen had discussion with patient regarding palliative care Will place a palliative medicine consult today per discussion with patient Continue supportive care (6) GERD (gastroesophageal reflux disease): Pantoprazole (7) Hyponatremia: Sodium level is consistently been in the 120s since 03/19/2020 Sodium on admission was 124 mmol/L At this point we will monitor but not treat (8) Intractable hiccups: Continue baclofen as needed Patient was prescribed 5 mg which is the typical dose for hiccups. However, patient has been using 20 mg doses with relief. Secondary to patient's malignant state, will continue 20 mg of baclofen as needed We will also try Thorazine. (9) Tobacco abuse: Patient with most likely end-stage metastatic adenocarcinoma of the colon He continues to smoke about a half a pack per day We will not discussed tobacco abstention at this time We will provide a nicotine patch during his inpatient stay (10) DVT prophylaxis: Patient is at high risk for thrombotic disease due to metastatic malignancy However, patient with bloody stools from adenocarcinoma of the colon Patient's hemoglobin is stable For now patient is ambulating frequently in the hallways Continue to monitor Admission and Anticipated Discharge Date Admission Date: September 07, 2020 Subjective Attending: Dr. Rueda This is a 55-year-old male with metastatic adenocarcinoma of the colon presented 09/07/2020 with abdominal pain and bloody stool. CT scan of the abdomen revealed diffuse colonic wall thickening with pericolonic stranding suggestive of nonspecific pancolitis. The patient recently had chemotherapy. He is extremely weak and complains of abdominal cramping. He has been on baclofen for hiccups as well as cramping which seems to have some resolve. He denies any fever or chills. He has no nausea or vomiting. He does have generalized pain. Labs reveal neutropenia. Patient was started on Flagyl and Zosyn yesterday. Procalcitonin today is elevated 0.77. T-max is 37.4 C within the last 24 hours. Stool culture is positive for Campylobacter jejuni. Patient has increased consumption of food seems to be tolerating. He continues with intractable hiccups Review of Systems Review of Systems: All systems reviewed & are unremarkable except as noted in Subjective Physical Exam Physical Exam: GENERAL : No acute distress EYES: No icterus, gaze conjugate NOSE: No evidence of epistaxis MOUTH: No lesions or candidiasis NECK: Supple LUNGS: CTA B/L, no wheezes, rales or rhonchi HEART: Regular, rate controlled ABDOMEN: Tender to palpation. Soft. Nondistended. EXTREMITIES: No LE edema, pedal pulses intact NEURO: A&OX3 Results & Data Results & Data ([facility]) Vital Signs (Past 12 Hours) Vital Signs Temp Pulse Resp BP Pulse Ox 09/09/20 07:22 37.4 C 78 20 116/63 95 Laboratory Results 09/09/20 07:40 09/09/20 07:51 Diagnostic Findings XR chest 1V portable HISTORY: 55 years-old Male Neutropenia, lung cancer follow-up study in a patient with lung cancer. COMPARISON: Chest CT 07/22/2020 TECHNIQUE: Portable AP view of the chest FINDINGS: Cardiomediastinal and hilar silhouettes are within normal limits. Left subclavian Ayrdfx-k-Unti catheter is unchanged. No pneumothorax, pleural effusi on, overt pulmonary edema or airspace consolidation typical for pneumonia. Bilateral solid pulmonary nodules compatible pulmonary metastasis redemonstrated measuring up to approximately 10 mm on the left. Unchanged remote fracture of the posterior lateral left ninth rib. Degenerative changes of the shoulders and spine. IMPRESSION: 1. No acute process. 2. Innumerable pulmonary nodules compatible with patient's known pulmonary metastasis redemonstrated. Electronically signed by: Sin Gonzalez M.D. 09/09/2020 7:16 AM PG Care Time/CCT Total # of Minutes Spent Total Time Spent with Patient: Total time spent is greater than 50% in coordination of care (as documented) at patient's floor/unit and/or counseling patient:30 minutes Coding Level of Care Code 36599 Subseq Hosp Care Lvl 2 Diagnoses Colitis K52.9 Hypokalemia E87.6 Lung cancer C34.90 Multiple pulmonary nodules R91.8 Adenocarcinoma of colon C18.9 GERD (gastroesophageal reflux disease) K21.9 Esophagitis presence: esophagitis presence not specified Hyponatremia E87.1 Intractable hiccups R06.6 Tobacco abuse Z72.0 DVT prophylaxis Z29.9 Time Spent (min) 30 (1) GERD (gastroesophageal reflux disease) Esophagitis presence: esophagitis presence not specified Qualified Code(s): K21.9 - Gastro-esophageal reflux disease without esophagitis
[2020-09-09] MEDS ORDERED: AZITHROMYCIN 500 MG in DEXTROSE 5% 250 ML IV ONE (15:00)
[2020-09-10] MEDS: CHECK fentaNYL PATCH PLACEMENT SCH ×3 (00:40→15:47)
[2020-09-10] MEDS: oxyCODONE HCL IR 5 MG TAB (IMMEDIATE RELEASE) PO PRN ×4 (01:53→21:06)
[2020-09-10] MEDS: HEPARIN 100 UNIT/ML 5ML FLUSH FLUSH PRN ×4 (01:54→21:55)
[2020-09-10] MEDS: PIPERACILLIN/TAZOBACTAM 3.375 GM in DEXTROSE 5% 100 ML IV SCH ×2 (02:17→12:12)
[2020-09-10] MEDS: HYDROmorphone INJ 0.5 MG/0.5 ML SYR IV PRN ×4 (04:53→21:54)
[2020-09-10 05:48] LABS: Basophils # (auto) 0.03 K/uL (0-0.2); Basophils % (auto) 0.5 %; Eosinophils # (auto) 0.22 K/uL (0-0.5); Eosinophils % (auto) 3.9 %; Hematocrit (blood only) 35.8 % (42-52); Hemoglobin 12.5 g/dL (14.0-18.0); Immature Granulocytes # (auto) 0.09 K/uL (0.00-0.02); Immature Granulocytes % (auto) 1.6 %; Lymphocytes # (auto) 1.17 K/uL (1.2-3.4); Lymphocytes % (auto) 20.9 %; Mean Corpuscular Hemoglobin 31.3 pg (25-34); Mean Corpuscular Hgb Conc 34.9 g/dL (32-36); Mean Corpuscular Volume 89.5 fL (80-100); Mean Platelet Volume 9.3 fL (7.4-10.4); Monocytes # (auto) 1.16 K/uL (0.11-0.59); Monocytes % (auto) 20.7 %; Neutrophils # (auto) 2.93 K/uL (1.4-6.5); Neutrophils % (auto) 52.4 %; Platelet Count 261 K/uL (130-400); RDW Coefficient of Variation 13.4 % (11.5-14.5); RDW Standard Deviation 44.1 fL (36.4-46.3)
[2020-09-10] MEDS: metroNIDAZOLE 500 MG/100 ML BAG IV SCH (06:06)
[2020-09-10 06:25] LABS: BUN Creatinine Ratio 11.7 (10-20); Calcium 8.9 mg/dl (8.5-10.1); Creatinine Clr Calc Pharmacy 136.3 ml/min; Est GFR (Non-African American) 109.6; Potassium 3.2 mmol/L (3.5-5.1)
[2020-09-10] MEDS ORDERED: AZITHROMYCIN 250 MG in DEXTROSE 5% 250 ML IV SCH (09:00)
[2020-09-10] MEDS: lisinopril 40 MG TAB PO SCH (09:32)
[2020-09-10] MEDS: PANTOprazole 40 MG TAB PO SCH (09:32)
[2020-09-10] MEDS: NICOTINE 14 MG/24 HR PATCH TD SCH (09:32)
[2020-09-10] MEDS: ATENOLOL 50 MG TABLET PO SCH ×2 (09:32→21:08)
[2020-09-10] MEDS: fentaNYL 50 MCG/HR TDSY TD SCH (09:33)
[2020-09-10] MEDS: BACLOFEN 10 MG TAB PO PRN (14:28)
[2020-09-10] MEDS: POTASSIUM CHLORIDE CRTAB 20 MEQ TABCR PO SCH ×2 (15:47→21:07)
[2020-09-10] MEDS: clonazePAM 1 MG TAB PO PRN (16:48)
[2020-09-10] MEDS: AZITHROMYCIN 250 MG TAB PO SCH (17:18)
--- NOTE | 2020-09-10 22:50 | Hospitalist Progress Note ---
Date of Service September 10, 2020 Assessment & Plan (1) Colitis: Colitis due to campylobacter CT scan with pancolitis Patient is neutropenic and had a T-max of 37.7 will stop zosyn and flagyl. will switch to oral azithromycin, may need prolonged course. Continue with analgesia Follow supportively (2) Hypokalemia: Most likely due to gastrointestinal losses Magnesium on 09/07/2020 was 2.1 continue to replete Follow serial labs (3) Lung cancer: VATS procedure in November [address] Alvarenga Biopsies were positive for adenocarcinoma consistent with metastatic spread from the colon Further treatment per Dr. Nguyen (4) Multiple pulmonary nodules: Consistent with metastatic colon cancer Status post biopsy in November 2019 No further need for surveillance (5) Adenocarcinoma of colon: Progressive disease with metastatic spread to the lungs Poorly tolerated most recent chemotherapy Follow with Dr. Patrick Nguyen had discussion with patient regarding palliative care Will place a palliative medicine consult today per discussion with patient Continue supportive care (6) GERD (gastroesophageal reflux disease): Pantoprazole (7) Hyponatremia: Sodium level is consistently been in the 120s since 03/19/2020 Sodium on admission was 124 mmol/L At this point we will monitor but not treat (8) Intractable hiccups: Continue baclofen as needed Patient was prescribed 5 mg which is the typical dose for hiccups. However, patient has been using 20 mg doses with relief. Secondary to patient's malignant state, will continue 20 mg of baclofen as needed We will also try Thorazine. (9) Tobacco abuse: Patient with most likely end-stage metastatic adenocarcinoma of the colon He continues to smoke about a half a pack per day We will not discussed tobacco abstention at this time We will provide a nicotine patch during his inpatient stay (10) DVT prophylaxis: Patient is at high risk for thrombotic disease due to metastatic malignancy However, patient with bloody stools from adenocarcinoma of the colon Patient's hemoglobin is stable For now patient is ambulating frequently in the hallways Continue to monitor Admission and Anticipated Discharge Date Admission Date: September 07, 2020 Subjective Patient continues to complain of diarrhea, and abdominal discomfort. Review of Systems Review of Systems: All systems reviewed & are unremarkable except as noted in HPI & below Physical Exam Physical Exam: GENERAL : No acute distress EYES: No icterus, gaze conjugate NOSE: No evidence of epistaxis MOUTH: No lesions or candidiasis NECK: Supple LUNGS: CTA B/L, no wheezes, rales or rhonchi HEART: Regular, rate controlled ABDOMEN: Tender to palpation. Soft. Nondistended. EXTREMITIES: No LE edema, pedal pulses intact NEURO: A&OX3 Results & Data Results & Data ([facility]) Vital Signs (Past 12 Hours) Vital Signs Temp Pulse Resp BP BP Pulse Ox 09/10/20 22:27 36.5 C 73 18 111/76 99 09/10/20 21:07 78 111/73 09/10/20 14:58 36.8 C 77 18 106/73 99 PG Care Time/CCT Total # of Minutes Spent Total Time Spent with Patient: Total time spent is greater than 50% in coordination of care (as documented) at patient's floor/unit and/or counseling patient: Coding Level of Care Code 45971 Subseq Hosp Care Lvl 3 Diagnoses Colitis K52.9 Hypokalemia E87.6 Lung cancer C34.90 Multiple pulmonary nodules R91.8 Adenocarcinoma of colon C18.9 GERD (gastroesophageal reflux disease) K21.9 Esophagitis presence: esophagitis presence not specified Hyponatremia E87.1 Intractable hiccups R06.6 Tobacco abuse Z72.0 DVT prophylaxis Z29.9 Time Spent (min) 35 (1) GERD (gastroesophageal reflux disease) Esophagitis presence: esophagitis presence not specified Qualified Code(s): K21.9 - Gastro-esophageal reflux disease without esophagitis
[2020-09-11] MEDS: CHECK fentaNYL PATCH PLACEMENT SCH ×3 (00:09→16:14)
[2020-09-11] MEDS: oxyCODONE HCL IR 5 MG TAB (IMMEDIATE RELEASE) PO PRN ×5 (01:00→20:53)
[2020-09-11] MEDS: HYDROmorphone INJ 0.5 MG/0.5 ML SYR IV PRN ×4 (02:21→20:54)
[2020-09-11] MEDS: HEPARIN 100 UNIT/ML 5ML FLUSH FLUSH PRN ×3 (06:02→14:33)
[2020-09-11 07:07] LABS: Basophils # (auto) 0.05 K/uL (0-0.2); Basophils % (auto) 0.7 %; Eosinophils # (auto) 0.27 K/uL (0-0.5); Hematocrit (blood only) 36.7 % (42-52); Hemoglobin 12.5 g/dL (14.0-18.0); Immature Granulocytes % (auto) 4.4 %; Lymphocytes # (auto) 1.95 K/uL (1.2-3.4); Lymphocytes % (auto) 28.6 %; Mean Corpuscular Hemoglobin 31.1 pg (25-34); Mean Corpuscular Hgb Conc 34.1 g/dL (32-36); Mean Corpuscular Volume 91.3 fL (80-100); Mean Platelet Volume 9.5 fL (7.4-10.4); Monocytes # (auto) 1.15 K/uL (0.11-0.59); Monocytes % (auto) 16.9 %; Neutrophils % (auto) 45.4 %; Nucleated RBC # (auto) 0.02 K/uL (0-0); Nucleated RBC % (auto) 0.3 %; Platelet Count 317 K/uL (130-400); RDW Coefficient of Variation 13.7 % (11.5-14.5); RDW Standard Deviation 45.2 fL (36.4-46.3); Red Blood Count 4.02 M/uL (4.7-6.1); White Blood Count 6.82 K/uL (4.8-10.8)
[2020-09-11 07:12] LABS: BUN Creatinine Ratio 10.3 (10-20); Calcium 8.8 mg/dl (8.5-10.1); Creatinine Clr Calc Pharmacy 169.7 ml/min; Potassium 3.5 mmol/L (3.5-5.1)
[2020-09-11] MEDS: POTASSIUM CHLORIDE CRTAB 20 MEQ TABCR PO SCH (08:49)
[2020-09-11] MEDS: ATENOLOL 50 MG TABLET PO SCH ×2 (08:49→20:53)
[2020-09-11] MEDS: NICOTINE 14 MG/24 HR PATCH TD SCH (08:52)
[2020-09-11] MEDS: PANTOprazole 40 MG TAB PO SCH (08:52)
[2020-09-11] MEDS: lisinopril 40 MG TAB PO SCH (08:52)
[2020-09-11] MEDS: clonazePAM 1 MG TAB PO PRN ×2 (11:58→23:13)
--- NOTE | 2020-09-11 15:26 | Hospitalist Progress Note ---
Date of Service September 11, 2020 Assessment & Plan (1) Colitis: CT scan with nonspecific pancolitis Afebrile over the last 24 hours No evidence of sepsis Empirically started Zosyn and Flagyl 09/08/2020. This is been discontinued now that stool is positive for Campylobacter jejuni Stool culture with Campylobacter * Day #3 of azithromycin. We will continue for 10-day course. Will avoid eryt hromycin as it can be used as a motility agent and patient is having diarrhea from his colon cancer Continue with analgesia as needed Follow supportively (2) Anorexia: Patient with severe anorexia secondary to chemotherapy Started Marinol 2.5 mg every 8 hours. Patient has significant increase in appetite. Patient is now eating full trays for each meal We will change Marinol to 5 mg p.o. twice daily: Once before breakfast and once before dinner I did discuss this with the patient and we will plan on discharging him home on 5 mg p.o. twice daily (3) Hypokalemia: Most likely due to gastrointestinal losses Potassium level is slowly increasing now that nausea vomiting diarrhea is improving No repletion today Follow serial labs (4) Lung cancer: VATS procedure in November [address] Alvarenga Biopsies were positive for adenocarcinoma consistent with metastatic spread from the colon Further treatment per Dr. Nguyen (5) Multiple pulmonary nodules: Consistent with metastatic colon cancer Status post biopsy in November 2019 No further need for surveillance (6) Adenocarcinoma of colon: Progressive disease with metastatic spread to the lungs Poorly tolerated most recent chemotherapy Follow with Dr. Patrick Nguyen had discussion with patient regarding palliative care Plan was to place a palliative medicine consult. After further discussion between patient and Dr. Nguyen, patient would like to hold off on this for now Continue supportive care (7) GERD (gastroesophageal reflux disease): Pantoprazole (8) Hyponatremia: Sodium level is consistently been in the 120s since 03/19/2020 Sodium is now 131 At this point we will monitor but not treat (9) Intractable hiccups: Continue baclofen as needed Patient was prescribed 5 mg which is the typical dose for hiccups. However, patient has been using 20 mg doses with relief. Secondary to patient's malignant state, will continue 20 mg of baclofen as nee ded Thorazine seem to help with hiccups. We will add this is a as needed med and discharge on same (10) Tobacco abuse: Patient with most likely end-stage metastatic adenocarcinoma of the colon He continues to smoke about a half a pack per day We will not discussed tobacco abstention at this time We will provide a nicotine patch during his inpatient stay (11) DVT prophylaxis: Patient is at high risk for thrombotic disease due to metastatic malignancy However, patient with bloody stools from adenocarcinoma of the colon Patient's hemoglobin is stable For now patient is ambulating frequently in the hallways Continue to monitor and encourage activity Admission and Anticipated Discharge Date Admission Date: September 07, 2020 Subjective Attending: Dr. Rueda This is a 55-year-old male with metastatic adenocarcinoma of the colon presented 09/07/2020 with abdominal pain and bloody stool. CT scan of the abdomen revealed diffuse colonic wall thickening with pericolonic stranding suggestive of nonspecific pancolitis. The patient recently had chemotherapy. He is extremely weak and complains of abdominal cramping. He has been on baclofen for hiccups as well as cramping which seems to have some resolve. Trazodone was added which helps. He denies any fever or chills. He has no nausea or vomiting. He does have generalized pain. Labs reveal neutropenia. Patient was started on Flagyl and Zosyn. Stool then grew out Campylobacter and patient was started on azithromycin as a macrolide. Stools are starting to form up. Patient also started on Marinol 2.5 mg three times daily and appetite is significantly increased. Patient denies any fever chills. He has no shortness of breath. He does continue have some cramping and abdominal pain. He has no new acute complaints. We began discussion about discharge planning. He may be ready in a day or 2. Review of Systems Review of Systems: All systems reviewed & are unremarkable except as noted in Subjective Physical Exam Physical Exam: GENERAL : No acute distress EYES: No icterus, gaze conjugate NOSE: No evidence of epistaxis MOUTH: No lesions or candidiasis NECK: Supple LUNGS: CTA B/L, no wheezes, rales or rhonchi HEART: Regular, rate controlled ABDOMEN: Some tenderness with palpation. Bowel sounds are present. No rebound tenderness. No guarding. Nondistended EXTREMITIES: No LE edema, pedal pulses intact NEURO: A&OX3 Results & Data Results & Data ([facility]) Vital Signs (Past 12 Hours) Vital Signs Temp Pulse Resp BP Pulse Ox 09/11/20 15:07 36.6 C 72 16 104/61 100 09/11/20 07:24 36.5 C 73 16 115/78 99 Laboratory Results 09/11/20 06:02 09/11/20 06:02 PG Care Time/CCT Total # of Minutes Spent Total Time Spent with Patient: Total time spent is greater than 50% in coordin ation of care (as documented) at patient's floor/unit and/or counseling patient: 20 minutes Coding Level of Care Code 70521 Subseq Hosp Care Lvl 2 Diagnoses Colitis K52.9 Anorexia R63.0 Hypokalemia E87.6 Lung cancer C34.90 Multiple pulmonary nodules R91.8 Adenocarcinoma of colon C18.9 GERD (gastroesophageal reflux disease) K21.9 Esophagitis presence: esophagitis presence not specified Hyponatremia E87.1 Intractable hiccups R06.6 Tobacco abuse Z72.0 DVT prophylaxis Z29.9 (1) GERD (gastroesophageal reflux disease) Esophagitis presence: esophagitis presence not specified Qualified Code(s): K21.9 - Gastro-esophageal reflux disease without esophagitis
[2020-09-11] MEDS: AZITHROMYCIN 250 MG TAB PO SCH (16:13)
[2020-09-11] MEDS: BACLOFEN 10 MG TAB PO PRN (23:13)
[2020-09-12] MEDS: CHECK fentaNYL PATCH PLACEMENT SCH ×3 (00:01→16:27)
[2020-09-12] MEDS: oxyCODONE HCL IR 5 MG TAB (IMMEDIATE RELEASE) PO PRN ×5 (01:00→21:36)
[2020-09-12] MEDS: HYDROmorphone INJ 0.5 MG/0.5 ML SYR IV PRN ×3 (01:01→08:38)
[2020-09-12] MEDS: HEPARIN 100 UNIT/ML 5ML FLUSH FLUSH PRN (08:38)
[2020-09-12] MEDS: clonazePAM 1 MG TAB PO PRN (08:39)
[2020-09-12] MEDS: ATENOLOL 50 MG TABLET PO SCH ×2 (08:39→21:34)
[2020-09-12] MEDS: NICOTINE 14 MG/24 HR PATCH TD SCH (08:40)
[2020-09-12] MEDS: lisinopril 40 MG TAB PO SCH (08:41)
[2020-09-12] MEDS: PANTOprazole 40 MG TAB PO SCH (08:41)
[2020-09-12] MEDS: DOCUSATE SODIUM/SENNA 50/8.6MG TAB PO SCH (15:25)
--- NOTE | 2020-09-12 15:59 | Hospitalist Progress Note ---
Date of Service September 12, 2020 Assessment & Plan (1) Colitis: Stool culture positive for Campylobacter jejuni. Day #4 of Azithromycin. Patient to complete a 10 day course. Patient reports abdominal pain is improved. Diarrhea resolved. Continue supportive care. (2) Anorexia: Appetite improved with Marinol 5mg. Will continue upon discharge. (3) Adenocarcinoma of colon: (4) Lung cancer: Metastatic adenocarcinoma of the colon with spread to the lungs. Follows with Dr. Nguyen. Dr. Nguyen had a discussion with the patient regarding palliative care, but he is not interested at this time. Continue supportive care. (5) GERD (gastroesophageal reflux disease): Continue pantoprazole. (6) Hyponatremia: Sodium levels have been in the 120s since March 2020. Currently stable at 131. (7) Intractable hiccups: Continue baclofen 20mg PRN for intactable hiccups. (8) Tobacco abuse: Nicotine patch provided this admission. (9) DVT prophylaxis: High risk for thrombotic disease due to metastatic malignancy. Chemical prophylaxis contraindicated due to bloody stools from adenocarcinoma of the colon. Continue to encourage ambulation. Admission and Anticipated Discharge Date Admission Date: September 07, 2020 Disposition- Home. Hopefully home tomorrow 09-13-20 as the patient is improving. Supervising Physician Co-Signing Physician Notes During my face to face encounter with the roland, I interviewed him and obtained a physical exam. I discussed plan of care with patient and TIERNEY Monte. I reviewed above note and agree with it. Patient is agreeable to discharge tomorrow as his diarrhea has improved and his pain is better controlled. Will taper down opiates. continue azithromycin for one more week to treat campylobacter Subjective 55-year-old male with metastatic colon cancer admitted with colitis and anorexia. Stool culture positive for Campylobacter jejuni. Patient is currently on day #4 of a 10-day course of azithromycin. He reports diarrhea has resolved, and he has not had a bowel movement for 2 days. Now he is concerned about constipation. Appetite has improved on 5 mg Marinol twice daily. Patient denies nausea or vomiting. Abdominal pain improved as well. Patient is concerned about possible discharge home, and reports he does not want to be discharged until he feels "100% back to normal." Review of Systems Constitutional: no fever and no chills Eyes: no worsening vision Ear, Nose, Mouth, Throat: no dizziness Respiratory: no dyspnea Cardiovascular: no chest pain Gastrointestinal: no abdominal pain, no nausea and no vomiting Psychiatric: no confusion Physical Exam Physical Exam: Temp Pulse Resp BP Pulse Ox 36.5 C 86 16 129/89 99 09/12/20 15:26 09/12/20 15:26 09/12/20 15:26 09/12/20 15:26 09/12/20 15:26 Patient is afebrile. Vital signs stable. Constitutional: + overweight; no acute distress ENMT: Ears: no hearing impairment Neck: normal visual inspection Respiratory: normal respiratory effort, lungs clear to auscultation Cardiovascular: RRR, no murmur, no edema Gastrointestinal (Abdomen): Inspection/Auscultation: normal bowel sounds Percussion/Palpation: abdomen soft; abdomen nontender Psychiatric: A+Ox3, euthymic affect Results & Data Results & Data ([facility]) Vital Signs (Past 12 Hours) Vital Signs Temp Pulse Resp BP Pulse Ox 09/12/20 15:26 36.5 C 86 16 129/89 99 09/12/20 07:22 36.5 C 68 16 114/78 98 PG Care Time/CCT Total # of Minutes Spent Total Time Spent with Patient: Total time spent is greater than 50% in coordination of care (as documented) at patient's floor/unit and/or counseling patient: Coding Level of Care Code 90786 Subseq Hosp Care Lvl 3 Diagnoses Colitis K52.9 Anorexia R63.0 Adenocarcinoma of colon C18.9 Lung cancer C34.90 GERD (gastroesophageal reflux disease) K21.9 Esophagitis presence: esophagitis presence not specified Hyponatremia E87.1 Intractable hiccups R06.6 Tobacco abuse Z72.0 DVT prophylaxis Z29.9 (1) GERD (gastroesophageal reflux disease) Esophagitis presence: esophagitis presence not specified Qualified Code(s): K 21.9 - Gastro-esophageal reflux disease without esophagitis
[2020-09-12] MEDS: AZITHROMYCIN 250 MG TAB PO SCH (16:26)
[2020-09-13] MEDS: CHECK fentaNYL PATCH PLACEMENT SCH ×3 (00:44→16:17)
[2020-09-13] MEDS: oxyCODONE HCL IR 5 MG TAB (IMMEDIATE RELEASE) PO PRN ×3 (03:26→14:45)
[2020-09-13] MEDS: BACLOFEN 10 MG TAB PO PRN (03:27)
[2020-09-13] MEDS: ATENOLOL 50 MG TABLET PO SCH (08:37)
[2020-09-13] MEDS: PANTOprazole 40 MG TAB PO SCH (08:37)
[2020-09-13] MEDS: lisinopril 40 MG TAB PO SCH (08:37)
[2020-09-13] MEDS: DOCUSATE SODIUM/SENNA 50/8.6MG TAB PO SCH (08:38)
[2020-09-13] MEDS: NICOTINE 14 MG/24 HR PATCH TD SCH ×2 (08:41→08:44)
[2020-09-13] MEDS: fentaNYL 50 MCG/HR TDSY TD SCH (08:45)
[2020-09-13] MEDS: clonazePAM 1 MG TAB PO PRN (09:57)
[2020-09-13] MEDS ORDERED: AZITHROMYCIN 250 MG TAB PO ONE (10:30)
[2020-09-13 12:05] LABS: Albumin Level 2.5 gm/dl (3.4-5.0); BUN Creatinine Ratio 5.5 (10-20); Calcium 9.1 mg/dl (8.5-10.1); Creatinine Clr Calc Pharmacy 130.4 ml/min; Est GFR (African American) 124.7; Est GFR (Non-African American) 107.6; Magnesium 2.3 mg/dl (1.8-2.4); Potassium 3.7 mmol/L (3.5-5.1)
[2020-09-13 12:08] LABS: Albumin Globulin Ratio 0.6 (0.9-2); Bilirubin,Total 0.3 mg/dl (0.2-1); Globulin 3.9 gm/dl (2.5-4.0); Total Protein 6.4 gm/dl (6.4-8.2)
--- NOTE | 2020-09-13 14:26 | CT Scan Report ---
CT head/brain wo con CLINICAL HISTORY: 55 years-old Male with intractable hiccups, lung cancer. Subsequent treatment stra tegy in a patient with history of lung cancer. TECHNIQUE: Multiple axial CT images of the head were obtained without contrast. A dose lowering tech nique was utilized adhering to the principles of ALARA. CT DOSE: 614.27 mGy.cm COMPARISON: None. FINDINGS: No acute intracranial hemorrhage, midline shift, intracranial mass, hydrocephalus, territorial ischem ia or abnormal extra-axial collection. The calvarium is intact. The paranasal sinuses, mastoid air cells, and middle ear cavities are clear . IMPRESSION: No acute intracranial abnormality. ACT 112: Negative or not required by law. The above report was generated using voice recognition software. It may contain grammatical, syntax o r spelling errors. Electronically signed by: Sin Gonzalez M.D. 09/13/2020 2:24 PM
--- NOTE | 2020-09-13 16:05 | Discharge Summary ---
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 He completed treatment with Xeloda/Oxaliplatin and Leucovorin (Oxaliplatin discontinued and Xeloda decreased as patient developed neuropathy). Found with disseminated pulmonary mets in October 2018 and was treated with CPT-11, 5-FU leucovorin and Bevacizumab. He completed 12 cycles on 07/10/19 then continued with maintenance bevacizumab. Repeat scans unfortunately revealed progressive disease. Patient was started on Lonsurf. He follows with Dr. Nguyen. Patient presents today with complaint of lower abdominal pain, cramping and watery diarrhea with bright red blood which started 3 days ago. He has been having 3-4 bloody bowel movements per day. He denies fever/chills. Denies nausea/vomiting/abdominal bloating. He does have some dizziness and feels unsteady on his feet. Also with poor appetite and decreased PO intake. Last chemo treatment 4 days ago. ER Course: Tylenol, Zofran x 4mg IV, NSS x 1L, Morphine 6mg IV, 4mg IV Principal Diagnosis Campylobacter jejuni colitis Discharge Exam Constitutional well developed and well nourished; no acute distress and no altered mental status ENMT external ear and nose normal, oropharynx normal Respiratory normal respiratory effort, lungs clear to auscultation Cardiovascular Rate/Rhythm: regular rate and regular rhythm Heart Sounds: normal S1 and normal S2; no murmur Vessels: posterior tibial pulses present and dorsalis pedis pulses present; no JVD Extremities: no edema Gastrointestinal (Abdomen) normal bowel sounds, soft, nontender, no hepatosplenomegaly Inspection/Auscultation: abdomen not distended Psychiatric A+Ox3, euthymic affect Discharge Data Allergies Allergy/AdvReac Type Severity Reaction Status Date / Time No Known Allergies Allergy Verified 09/07/20 18:59 Ordered Studies 09/07/20 16:38 CT abd pelvis IV con only Stat IMPRESSION: 1. Diffuse colonic wall thickening with pericolonic stranding is suggestive of a nonspecific pancolitis, likely infectious or inflammatory. Associated colonic air-fluid levels are suggestive of diarrheal illness. 2. No bowel obstruction or pneumoperitoneum. 3. No evidence of intra-abdominal or intrapelvic metastatic disease. 4. Pulmonary metastasis redemonstrated. 09/13/20 13:06 CT head/brain wo con Urgent - no evidence of intracranial metastatic disease. Hospital Course (1) Campylobacter enteritis: Stool culture grew campylobacter jejuni. This was the cause of his colitis. C diff testing was negative. Patient improved with azithromycin and will complete 5 more days of such at home. He had been handling raw chicken in the 48 hours prior to getting sick so this may have been the reason for his infection. (2) Colon cancer: stage 4, with pulmonary mets. CT head without intracranial metastatic disease. Follows with Dr Srinivasan Nguyen at the [facility]. (3) Multiple pulmonary nodules: (4) Current every day smoker: Counseled to quit. (5) Hypertension: Hydrochlorothiazide was held while here due to low K and low Na. Despite holding the HCTZ his BPs were controlled without it. At discharge he will continue to hold the HCTZ. (6) Intractable hiccups: 2nd to refractory GERD? other? no metastatic disease to the brain or stroke on CT head. Cont PPI twice daily. (7) Acute hyponatremia: 2nd to HCTZ use and diarrhea. Improved with IVF to 134 at discharge. HCTZ held at discharge. Lowest Na level was 123 at presentation. (8) Leukopenia: Resolved prior to discharge. (9) Hypokalemia: Repleted and resolved. Total Time Total Time Spent Total Time Spent (In Minutes): 40 Total Time Includes: Examination of the Patient, Discharge Planning and Medication Reconciliation Discharge Plan Discharge Items Patient Disposition: Home - Self-Care Reason For Visit: COLITIS Discharge Diagnosis: Infectious colitis due to campylobacter infection Condition on Discharge: Fair Activity: As commented below Activity Comment: gradually increase activities as tolerated Non-emergency contact: Primary Care Provider and Oncologist Call non-emergency contact if: you have any medication questions, your symptoms worsen and you have a fever Follow-up/Referrals: Srinivasan Nguyen V., DO [Primary Care Provider] - (see Dr Nguyen within 1 week) Diet: Low Fiber Addtl Attending Provider Instructions: You were diagnosed with colitis (illness of the colon) caused by an infection. This led to severe diarrhea and even some blood. Your stool culture grew a bacterium called "campylobacter" (see separate handout). This is quite treatable with azithromycin antibiotics. You received 5 days of this antibiotic here, and you will need to take 5 more days at home starting tomorrow. Your diarrhea improved with this antibiotic. We performed a CAT scan of the head and this was normal; specifically we did not see evidence of cancer in the brain. Your hiccups may be from severe heartburn. Please stop your omeprazole (prilosec), and use pantoprazole 40mg twice daily for your heartburn/hiccups. A week supply of marinol has been prescribed for appetite stimulation. Take it prior to breakfast for the next week. Occasionally marinol can make some individuals confused. If you notice this please stop the medication right away. The risk of passing on the campylobacter to others is rather low at this time. However, I would recommend good handwashing for the next 7 days. Continue to wear a mask any time you leave your home to reduce the chances of mary anne COVID-19. Avoid large gatherings, keep social distancing, and wash your hands frequently. Lastly, for now, please STOP your hydrochlorothiazide. Your blood pressure has been controlled without it. Follow-up -- [facility] to [facility] if -- * you have fevers over 100 degrees * you have worsening abdominal pain * you have worsening diarrhea * you have difficulty breathing * any other concerns Pending Studies at Discharge: No Stand-Alone Forms: My [facility], Smoking Cessation Medications and DC Order Prescriptions: New pantoprazole 40 mg Tablet,Delayed Release (Dr/Ec) 40 mg PO BID Qty: 60 RF: 2 Continued clonazepam [Klonopin] 1 mg tablet 1 mg PO BID PRN (Reason: Anxiety) RF: 0 lisinopril [Zestril] 40 mg tablet 40 mg PO DAILY RF: 0 atenolol [Tenormin] 50 mg tablet 50 mg PO BID RF: 0 oxycodone 10 mg tablet 10 mg PO Q4 PRN (Reason: Pain) RF: 0 fentanyl [Duragesic] 50 mcg/hr patch 72 hour 50 mcg topical [id number] RF: 0 ondansetron HCl 8 mg tablet 8 mg PO Q8 PRN (Reason: Nausea) RF: 0 Discontinued hydrochlorothiazide 25 mg tablet 25 mg PO DAILY RF: 0 omeprazole 40 mg capsule,delayed release(DR/EC) 40 mg PO DAILY RF: 0 Discharge Orders: Discharge Order (Routine); Ordered 09/13/20 Ordered By: Papa Davis/Other Patient Handouts: Understanding Campylobacter Infection, Dronabinol THC capsules, Pantoprazole tablets, Azithromycin tablets Admission Data Admit Date/Time: 09/07/20 20:09 Attending Provider: Papa Kaur Admit Provider: Naomi Chirinos Primary Care Provider: Srinivasan Nguyen V. Other Providers: Binh Cameron Other Interventions: Discharge Summary Assessment (RN) Last Done: 09/13/20 16:10 Coding Level of Care Code D/C Day Management >30 mins Diagnoses Campylobacter enteritis A04.5 Colon cancer C18.9 Multiple pulmonary nodules R91.8 Current every day smoker F17.200 Hypertension I10 Intractable hiccups R06.6 Acute hyponatremia E87.1 Leukopenia D72.819 Hypokalemia E87.6
[2020-09-13] MEDS ORDERED: HEPARIN 100 UNIT/ML 5ML FLUSH FLUSH PRN (16:15)
[2020-09-13] MEDS: HEPARIN 100 UNIT/ML 5ML FLUSH FLUSH PRN (16:28)
[2020-09-14] MEDS ORDERED: AZITHROMYCIN 250 MG TAB PO SCH (09:00)
== END 2020-09-13 17:53 | disposition home or self-care (01) | DRG 372 ==
LOC: ED 16:20 → 2W 20:09 → SUATTDRO 20:09 → 2W 22:00 → 3W 09-12 09:35

== ENCOUNTER 2020-10-04 14:03 | Inpatient (IN) ==
[2020-10-04] MEDS ORDERED: SODIUM CHLORIDE 0.9% 1000ML 1,000 ML IV SCH (14:15)
[2020-10-04] MEDS ORDERED: PROMETHAZINE 12.5 MG/50.5 ML BAG IV STA (14:15)
--- NOTE | 2020-10-04 14:23 | Emergency Department Note ---
Impression & Plan Malignant neoplasm metastatic to colon, Acute hyponatremia, Abdominal pain, Nausea ED Provider Note NAME: JUSTINO VILLEDA AGE: 55 SEX: M : 1965 ARRIVES VIA: Ambulance INFORMANT: Patient, ED PROVIDER(S): Andrew Junior DO CHIEF COMPLAINT: Nausea HPI: The patient is a 55-year-old male who has a history of end-stage metastatic colon cancer who presented to the emergency department for an evaluation of nausea and decreased intake. He is noticed 2 days of constipation. He does use pain medication but this is known to his primary care physician. Recently he has been switched to palliative care because he is unable to treat this colon cancer any further. He states has been compliant with his other medications. He denies having any diarrhea. He has had no black or bloody bowel movements. He called his primary care physician but was referred to the emergency department. He was given Zofran and IV fluids prior to arrival with some improvement of his symptoms. ROS: See above HPI for pertinent positives & negatives. A total of 10 systems reviewed and were otherwise negative. PAST MEDICAL HISTORY: See Below PAST SURGICAL HISTORY: See Below FAMILY HISTORY: See Below SOCIAL HISTORY: See Below HOME MEDICATIONS: See Below ALLERGIES: See Below VITALS: See Below PHYSICAL EXAMINATION: GENERAL: The patient is awake and alert. He is somewhat anxious appearing EYES: The conjunctivae are clear. The pupils are round and reactive. EARS, NOSE, MOUTH AND THROAT: The nose is without any evidence of any deformity. Mucous members are dry. NECK: The neck is nontender and supple. RESPIRATORY: Normal respiratory effort is noted there is no evidence of wheezing rhonchi or rales CARDIOVASCULAR: Regular rate and rhythm noted there no murmurs rubs or gallops normal S1 normal S2. GASTROINTESTINAL: The abdomen is moderately distended. There is no tenderness guarding rigidity. MUSCULOSKELETAL/EXTREMITIES: There is no evidence of gross deformity full range of motion is noted in the hips and shoulders. SKIN: There is no obvious evidence of any rash. Pedal edema was noted bilaterally. NEUROLOGIC: Patient is awake alert and oriented x3. MEDICAL DECISION MAKING: The patient is a 55-year-old male who presented to the emergency department for nausea and abdominal distention. The patient has a history of metastatic colon cancer. The patient's colon cancer is also in his lungs as well. He has been having very severe pain as well as nausea. He was trying to manage this at home. The patient is end-stage from his cancer diagnosis. He is trying to get into palliative medicine and hospice however this process has been delayed somewhat. The patient was treated with IV fluids as well as IV antiemetics in the emergency department. He was reevaluated multiple times. Ultimately the patient had improvement of his symptoms however he was found to have very severe hyponatremia. I discussed the patient's laboratory and radiographic studies with him. The [facility] hospitalist group was notified about this patient. I do feel he may require inpatient management but also might require further evaluation by hospice and palliative medicine. Triage Nursing notes reviewed. Prior medical records reviewed Vital Signs: reviewed and remarkable for hypertension. Differential diagnosis: Gastroenteritis, food borne illness, infections, appendicitis, diverticulitis, inflammatory bowel disease, obstruction, GI bleed, biliary pathology, volvulus, as well as other pathologies. ER treatment provided: See below Diagnostics interpreted by me: ECG: none Cardiac Monitoring: An order was placed for continuous cardiac monitoring. The monitor shows a rate of 80 bpm with sinus rhythm. Laboratory studies: As stated above and show below. Imaging studies: See below Consultation(s): The [facility] hospitalist group was consulted about the patient. They have agreed to evaluate the patient Past Med/Surg History Medical History (Updated 10/04/20 @ 18:52 by Andrew Junior DO) Acute hyponatremia Adenocarcinoma of colon Anorexia Colitis Colon cancer colon resection + chemo Current every day smoker GERD (gastroesophageal reflux disease) High blood pressure Hypertension Intractable hiccups Pulmonary nodules Tobacco abuse Surgical History History of colon resection 2018 History of colonoscopy History of lung surgery (11/28/19) Left thoracoscopy with biopsy, left lower lobe nodule. Dr. Alvarenga 11-28-19 History of tonsillectomy History of tooth extraction History of vascular access device Family History Father Cancer Colorectal cancer Social History Smoking Status: Current every day smoker packs per day: 0.5; Years Smoked: 25; Cigarettes Per Day: 1/2 ppd; Second Hand Exposure: Yes (as a child); Hx Alcohol Use: No Hx Substance Use: No Preferred Language: Palestinian Communication Ability: Effective Patient Registration Supervisor Required: No Beliefs That Will Affect Care: None marital status: Single Current Living Situation: Family Current Living Situation Comment: Lives w/ brother - Luke Villeda current occupational status: employed 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 Feels Safe at Home: Yes Assistive Devices: None Allergies Allergies Allergy/AdvReac Type Severity Reaction Status Date / Time No Known Allergies Allergy Verified 10/04/20 16:49 Home Meds Home Medications Medication Instructions Recorded Confirmed atenolol [Tenormin] 50 mg PO BID 09/07/20 10/04/20 clonazepam [Klonopin] 1 mg PO BID PRN 09/07/20 10/04/20 fentanyl [Duragesic] 50 mcg TOPICAL CQ72HR 09/07/20 10/04/20 ondansetron HCl 8 mg PO Q8H PRN 09/07/20 10/04/20 oxycodone 10 mg PO .Q4-6HRS PRN 09/07/20 10/04/20 baclofen 10 mg PO BID PRN 10/04/20 10/04/20 dexamethasone 2 mg PO DAILY PRN 10/04/20 10/04/20 hydrochlorothiazide 25 mg PO DAILY 10/04/20 10/04/20 Previous Rx's Medication Instructions Recorded pantoprazole 40 mg PO BID #60 tab 09/13/20 lisinopril 40 mg tablet 40 mg PO DAILY #30 tab 09/30/20 Results & Data (ED) Vital Signs Vital Signs - 24 hr 10/04/20 14:22 10/04/20 14:47 10/04/20 15:01 Temperature 36.8 C Temperature Source Oral Pulse Rate 82 77 79 Respiratory Rate 18 20 16 Respiratory Depth Normal Blood Pressure 184/95 H 162/88 H 170/90 H Blood Pressure Mean 124 118 140 Pulse Oximetry 97 96 96 Oxygen Delivery Method Room Air Sepsis Recent Fever Within 48 Hours No Sepsis New/Unexplained Change in Mental Status No Sepsis Action Taken by Nursing No Action Required 10/04/20 15:31 10/04/20 16:00 10/04/20 16:31 Temperature Temperature Source Pulse Rate 81 77 93 H Respiratory Rate 18 13 22 Respiratory Depth Blood Pressure 149/72 H 117/60 171/82 H Blood Pressure Mean 103 79 130 Pulse Oximetry 95 95 96 Oxygen Delivery Method Sepsis Recent Fever Within 48 Hours Sepsis New/Unexplained Change in Mental Status Sepsis Action Taken by Nursing 10/04/20 17:00 10/04/20 17:30 10/04/20 18:01 Temperature Temperature Source Pulse Rate 89 91 H 85 Respiratory Rate 20 15 20 Respiratory Depth Blood Pressure 181/109 H 179/114 H 107/59 L Blood Pressure Mean 147 147 67 Pulse Oximetry 96 96 96 Oxygen Delivery Method Sepsis Recent Fever Within 48 Hours Sepsis New/Unexplained Change in Mental Status Sepsis Action Taken by Nursing 10/04/20 18:30 Temperature Temperature Source Pulse Rate 76 Respiratory Rate 21 Respiratory Depth Blood Pressure 90/56 L Blood Pressure Mean 62 Pulse Oximetry 94 Oxygen Delivery Method Sepsis Recent Fever Within 48 Hours Sepsis New/Unexplained Change in Mental Status Sepsis Action Taken by [facility] Medications Current Medication List: was personally reviewed by me Laboratory Data Attestation: I reviewed the patient's lab results. Result diagrams: 10/04/20 14:15 10/04/20 15:33 Lab Results 10/04/20 10/04/20 10/04/20 Range/Units 14:15 14:15 14:15 WBC 6.15 (4.8-10.8) K/uL RBC 4.28 L (4.7-6.1) M/uL Hgb 13.5 L (14.0-18.0) g/dL Hct 37.2 L (42-52) % MCV 86.9 (80-100) fL MCH 31.5 (25-34) pg MCHC 36.3 H (32-36) g/dL RDW Std Deviation 46.3 (36.4-46.3) fL RDW Coeff of Gerald 14.6 H (11.5-14.5) % Plt Count 220 (130-400) K/uL MPV 9.5 (7.4-10.4) fL Immature Gran % (Auto) 0.3 % Neut % (Auto) 74.5 % Lymph % (Auto) 14.5 % Saunders % (Auto) 10.2 % Eos % (Auto) 0.3 % Baso % (Auto) 0.2 % Neut # (Auto) 4.58 (1.4-6.5) K/uL Lymph # (Auto) 0.89 L (1.2-3.4) K/uL Saunders # (Auto) 0.63 H (0.11-0.59) K/uL Eos # (Auto) 0.02 (0-0.5) K/uL Baso # (Auto) 0.01 (0-0.2) K/uL Immature Gran # (Auto) 0.02 (0.00-0.02) K/uL PT 9.9 (9.0-12.0) Seconds INR 0.9 (0.9-1.1) APTT 32.1 H (21.0-31.0) Seconds PTT Ratio 1.2 Sodium 113 L* (136-145) mmol/L Potassium (3.5-5.1) mmol/L Chloride 112 H (98-107) mmol/L Carbon Dioxide 26 (21-32) mmol/L Anion Gap 15.0 H (3-11) BUN 5 L (7-18) mg/dl Creatinine 0.67 (0.6-1.4) mg/dl Est Cr Clr Drug Dosing Not Reportable Est GFR ( Amer) 126.3 Est GFR (Non-Af Amer) 108.9 BUN/Creatinine Ratio 7.5 L (10-20) Glucose 92 (70-99) mg/dl Osmolality (280-300) mOsm/kg Calcium 9.1 (8.5-10.1) mg/dl Magnesium (1.8-2.4) mg/dl Total Bilirubin 1.5 H (0.2-1) mg/dl AST (15-37) U/L ALT 38 (12-78) U/L Alkaline Phosphatase 140 H (45-117) U/L Total Protein 6.6 (6.4-8.2) gm/dl Albumin 3.1 L (3.4-5.0) gm/dl Globulin 3.5 (2.5-4.0) gm/dl Albumin/Globulin Ratio 0.9 (0.9-2) Lipase 94 (73-393) U/L Urine Color Urine Appearance (Clear) Urine pH (4.5-7.5) Ur Specific [place] (1.000-1.030) Urine Protein (Negative) Urine Glucose (UA) (Negative) Urine Ketones (Negative) Urine Blood (Negative) Urine Nitrite (Negative) Urine Bilirubin (Negative) Urine Urobilinogen (Negative) Ur Leukocyte Esterase (Negative) Urine Osmolality (500-800) mOsm/kg Ur Random Sodium mmol/L SARS-CoV-2 Ag (Rapid) (Negative) 10/04/20 10/04/20 10/04/20 Range/Units 14:15 14:15 14:15 WBC (4.8-10.8) K/uL RBC (4.7-6.1) M/uL Hgb (14.0-18.0) g/dL Hct (42-52) % MCV (80-100) fL MCH (25-34) pg MCHC (32-36) g/dL RDW Std Deviation (36.4-46.3) fL RDW Coeff of Gerald (11.5-14.5) % Plt Count (130-400) K/uL MPV (7.4-10.4) fL Immature Gran % (Auto) % Neut % (Auto) % Lymph % (Auto) % Saunders % (Auto) % Eos % (Auto) % Baso % (Auto) % Neut # (Auto) (1.4-6.5) K/uL Lymph # (Auto) (1.2-3.4) K/uL Saunders # (Auto) (0.11-0.59) K/uL Eos # (Auto) (0-0.5) K/uL Baso # (Auto) (0-0.2) K/uL Immature Gran # (Auto) (0.00-0.02) K/uL PT (9.0-12.0) Seconds INR (0.9-1.1) APTT (21.0-31.0) Seconds PTT Ratio Sodium (136-145) mmol/L Potassium (3.5-5.1) mmol/L Chloride (98-107) mmol/L Carbon Dioxide (21-32) mmol/L Anion Gap (3-11) BUN (7-18) mg/dl Creatinine (0.6-1.4) mg/dl Est Cr Clr Drug Dosing Est GFR ( Amer) Est GFR (Non-Af Amer) BUN/Creatinine Ratio (10-20) Glucose (70-99) mg/dl Osmolality 241 L (280-300) mOsm/kg Calcium (8.5-10.1) mg/dl Magnesium (1.8-2.4) mg/dl Total Bilirubin (0.2-1) mg/dl AST (15-37) U/L ALT (12-78) U/L Alkaline Phosphatase (45-117) U/L Total Protein (6.4-8.2) gm/dl Albumin (3.4-5.0) gm/dl Globulin (2.5-4.0) gm/dl Albumin/Globulin Ratio (0.9-2) Lipase (73-393) U/L Urine Color Yellow Urine Appearance Clear (Clear) Urine pH 6.0 (4.5-7.5) Ur Specific [place] 1.006 (1.000-1.030) Urine Protein Negative (Negative) Urine Glucose (UA) Negative (Negative) Urine Ketones Negative (Negative) Urine Blood Negative (Negative) Urine Nitrite Negative (Negative) Urine Bilirubin Negative (Negative) Urine Urobilinogen Negative (Negative) Ur Leukocyte Esterase Negative (Negative) Urine Osmolality 127 L (500-800) mOsm/kg Ur Random Sodium mmol/L SARS-CoV-2 Ag (Rapid) (Negative) 10/04/20 10/04/20 10/04/20 Range/Units 14:15 14:15 15:33 WBC (4.8-10.8) K/uL RBC (4.7-6.1) M/uL Hgb (14.0-18.0) g/dL Hct (42-52) % MCV (80-100) fL MCH (25-34) pg MCHC (32-36) g/dL RDW Std Deviation (36.4-46.3) fL RDW Coeff of Gerald (11.5-14.5) % Plt Count (130-400) K/uL MPV (7.4-10.4) fL Immature Gran % (Auto) % Neut % (Auto) % Lymph % (Auto) % Saunders % (Auto) % Eos % (Auto) % Baso % (Auto) % Neut # (Auto) (1.4-6.5) K/uL Lymph # (Auto) (1.2-3.4) K/uL Saunders # (Auto) (0.11-0.59) K/uL Eos # (Auto) (0-0.5) K/uL Baso # (Auto) (0-0.2) K/uL Immature Gran # (Auto) (0.00-0.02) K/uL PT (9.0-12.0) Seconds INR (0.9-1.1) APTT (21.0-31.0) Seconds PTT Ratio Sodium 116 L* (136-145) mmol/L Potassium 3.0 L (3.5-5.1) mmol/L Chloride 76 L (98-107) mmol/L Carbon Dioxide 27 (21-32) mmol/L Anion Gap 13.0 H (3-11) BUN 5 L (7-18) mg/dl Creatinine 0.71 (0.6-1.4) mg/dl Est Cr Clr Drug Dosing Not Reportable Est GFR ( Amer) 123.3 Est GFR (Non-Af Amer) 106.4 BUN/Creatinine Ratio 6.5 L (10-20) Glucose 93 (70-99) mg/dl Osmolality (280-300) mOsm/kg Calcium 9.4 (8.5-10.1) mg/dl Magnesium 1.7 L (1.8-2.4) mg/dl Total Bilirubin 1.4 H (0.2-1) mg/dl AST 106 H (15-37) U/L ALT 41 (12-78) U/L Alkaline Phosphatase 150 H (45-117) U/L Total Protein 7.1 (6.4-8.2) gm/dl Albumin 3.3 L (3.4-5.0) gm/dl Globulin 3.8 (2.5-4.0) gm/dl Albumin/Globulin Ratio 0.9 (0.9-2) Lipase (73-393) U/L Urine Color Urine Appearance (Clear) Urine pH (4.5-7.5) Ur Specific [place] (1.000-1.030) Urine Protein (Negative) Urine Glucose (UA) (Negative) Urine Ketones (Negative) Urine Blood (Negative) Urine Nitrite (Negative) Urine Bilirubin (Negative) Urine Urobilinogen (Negative) Ur Leukocyte Esterase (Negative) Urine Osmolality (500-800) mOsm/kg Ur Random Sodium 30 mmol/L SARS-CoV-2 Ag (Rapid) (Negative) 10/04/20 Range/Units Unknown WBC (4.8-10.8) K/uL RBC (4.7-6.1) M/uL Hgb (14.0-18.0) g/dL Hct (42-52) % MCV (80-100) fL MCH (25-34) pg MCHC (32-36) g/dL RDW Std Deviation (36.4-46.3) fL RDW Coeff of Gerald (11.5-14.5) % Plt Count (130-400) K/uL MPV (7.4-10.4) fL Immature Gran % (Auto) % Neut % (Auto) % Lymph % (Auto) % Saunders % (Auto) % Eos % (Auto) % Baso % (Auto) % Neut # (Auto) (1.4-6.5) K/uL Lymph # (Auto) (1.2-3.4) K/uL Saunders # (Auto) (0.11-0.59) K/uL Eos # (Auto) (0-0.5) K/uL Baso # (Auto) (0-0.2) K/uL Immature Gran # (Auto) (0.00-0.02) K/uL PT (9.0-12.0) Seconds INR (0.9-1.1) APTT (21.0-31.0) Seconds PTT Ratio Sodium (136-145) mmol/L Potassium (3.5-5.1) mmol/L Chloride (98-107) mmol/L Carbon Dioxide (21-32) mmol/L Anion Gap (3-11) BUN (7-18) mg/dl Creatinine (0.6-1.4) mg/dl Est Cr Clr Drug Dosing Est GFR ( Amer) Est GFR (Non-Af Amer) BUN/Creatinine Ratio (10-20) Glucose (70-99) mg/dl Osmolality (280-300) mOsm/kg Calcium (8.5-10.1) mg/dl Magnesium (1.8-2.4) mg/dl Total Bilirubin (0.2-1) mg/dl AST (15-37) U/L ALT (12-78) U/L Alkaline Phosphatase (45-117) U/L Total Protein (6.4-8.2) gm/dl Albumin (3.4-5.0) gm/dl Globulin (2.5-4.0) gm/dl Albumin/Globulin Ratio (0.9-2) Lipase (73-393) U/L Urine Color Urine Appearance (Clear) Urine pH (4.5-7.5) Ur Specific [place] (1.000-1.030) Urine Protein (Negative) Urine Glucose (UA) (Negative) Urine Ketones (Negative) Urine Blood (Negative) Urine Nitrite (Negative) Urine Bilirubin (Negative) Urine Urobilinogen (Negative) Ur Leukocyte Esterase (Negative) Urine Osmolality (500-800) mOsm/kg Ur Random Sodium mmol/L SARS-CoV-2 Ag (Rapid) Negative (Negative) Administered Medications Discontinued Medications Clonazepam (Clonazepam 1 Mg Tab) Confirm Administered Dose 1 mg PO .STK-MED ONE Stop: 10/04/20 17:21 Last Admin: 10/04/20 17:23 Dose: 1 mg Documented by: [id number] Sodium Chloride (Nss 1000ml) 1,000 mls @ 999 mls/hr IV .Q1H1M FR[place] Stop: 10/04/20 15:15 Last Infusion: 10/04/20 16:00 Dose: 0 mls/hr Documented by: [id number] Admin: 10/04/20 14:45 Dose: 999 mls/hr Documented by: [id number] Promethazine HCl (Phenergan) 12.5 mg in 50.5 mls @ 202 mls/hr IV NOW STA Stop: 10/04/20 14:29 Last Infusion: 10/04/20 15:24 Dose: 0 mls/hr Documented by: [id number] Admin: 10/04/20 14:45 Dose: 202 mls/hr Documented by: [id number] Nicotine (Nicotine 14 Mg/24 Hr Patch) Confirm Administered Dose 14 mg TD .STK- MED ONE Stop: 10/04/20 17:14 Last Admin: 10/04/20 17:17 Dose: 14 mg Documented by: [id number] Imaging Data Radiologist's Impression: Patient: JUSTINO VILLEDA Admit Date: 10/04/20 MR#: [id number] Address1: [address] Acct ID:[id number] Address2: [address] Date: 1965 [facility] Zip: [place] [address] Age: 55 Location: ED Sex: M Room/Bed: Att Phy: Diagnosis: DEHYDRATION Radha Phy: Srinivasan Nguyen DO Service Date: 10/04/20 Fam Phy: Interpreting Phy: Jose Roberto Harris MD Admit Phy: Ordering Phy: Andrew Junior DO cc: ~ XR chest 1V portable CLINICAL HISTORY: Pain, radiating to the abdomen. COMPARISON STUDY: 09/09/2020 FINDINGS: The cardiac and mediastinal contours remain stable. There is a left- sided A-Port catheter present. There is been interval increase in the size and number of the multiple bilateral pulmonary nodules. This is highly suspicious for progressive metastatic disease. There is no lobar consolidation. There is no pneumothorax. There are no pleural effusions.[Old bilateral rib fractures are again visualized. IMPRESSION: 1. Interval increase in the size and number of the multiple bilateral pulmonary nodules consistent with progressive metastatic disease ACT 112: Negative or not required by law. Electronically signed by: Jose Roberto Harris M.D. 10/04/2020 2:33 PM Dictated: 10/04/20 143 Transcribed: 10/04/20 143 Patient: JUSTINO VILLEDA Admit Date: 10/04/20 MR#: [id number] Address1: [address] [place] [address] Acct ID:[id number] Address2: [place] [address] Date: 1965 [facility] Zip: [place] [address] Age: 55 Location: ED Sex: M Room/Bed: Att Phy: Diagnosis: DEHYDRATION Radha Phy: Laury Ji MD Service Date: 10/04/20 [facility] Phy: Interpreting Phy: Bernardo King MD Admit Phy: Ordering Phy: Andrew Junior DO cc: ~ CT SCAN OF THE ABDOMEN AND PELVIS WITHOUT IV CONTRAST CLINICAL HISTORY: Nausea. Colorectal carcinoma. COMPARISON STUDY: Abdominal CT dated 09/07/2020 TECHNIQUE: CT scan of the abdomen and pelvis is performed from the lung bases to the proximal femora. Images are reviewed in the axial, sagittal, and coronal planes. IV contrast was not administered for this examination. Note that the examination was performed in suboptimal fashion lateral and IV contrast. A dose lowering technique was utilized adhering to the principles of ALARA. CT DOSE: 930.82 mGycm FINDINGS: Lung bases: The heart is normal in size and without pericardial effusion. There is evidence of multifocal pulmonary metastatic disease with greater than 20 nodules seen at the lung bases. The largest lesion is seen in the left lower lobe on image #13 and measures 1.8 cm. Several of the larger nodule measures show central cavitation. There is no airspace consolidation typical for pneumonia or pleural effusion. Postoperative change is noted at the left lung base. A small hiatal hernia is noted. Liver: The unenhanced liver is normal in size, contour, and attenuation. There is no intrahepatic biliary ductal dilatation. Gallbladder: Unremarkable. Spleen: Normal in size and attenuation. There are scattered calcified splenic granulomas. Pancreas: The unenhanced pancreas is moderately atrophic and grossly unremarkable. Adrenal glands: Unremarkable. Kidneys: The unenhanced kidneys are normal in size and without hydronephrosis. There are no renal calculi identified. There is no evidence of contour deforming renal mass lesion. Abdominal vasculature: The abdominal aorta is normal in course and caliber noting moderate to advanced atherosclerotic calcification. Bowel:. There is postoperative change from left sided colonic resection with colocolonic anastomosis. No bowel obstruction is seen. Moderate fecal retention is noted throughout the remaining colon. There is moderate diverticulosis of the remaining colon without CT evidence of acute diverticulitis. Residual enteric contrast is suggested in the small bowel and colon. The appendix is well-v isualized and normal. Peritoneum: There is no intraperitoneal free air or abdominal ascites. Lymphadenopathy: None. Pelvic viscera: There is median lobe hypertrophy of the prostate gland. The bladder is distended. Mild bladder wall thickening and trabeculation suggests chronic outlet obstruction. Skeletal structures: No lytic or blastic lesions are seen. There are healed left-sided rib fractures. IMPRESSION: 1. Suboptimal examination without oral and IV contrast. 2. There are no acute infectious or inflammatory findings in the abdomen or pelvis. 3. Moderate constipation. 4. Multifocal pulmonary metastatic disease appears modestly progressed as compared to 09/07/2020. 5. Moderate colonic diverticulosis without CT evidence of acute diverticulitis. 6. Additional findings as above. ACT 112: Negative or not required by law. Electronically signed by: Bernardo King M.D. 10/04/2020 2:53 PM Dictated: 10/04/20 144 Transcribed: 10/04/20 144 Blood Pressure Blood Pressure Findings: Low blood pressure Discharge Plan Visit Data Chief Complaint: Dehydration ED Provider: Andrew Junior Discharge Problem: Malignant neoplasm metastatic to colon, Acute hyponatremia, Abdominal pain, Nausea Patient Disposition: Being Evaluated by Hospitalist Condition: Good Forms Stand Alone Forms: My [facility] Prescriptions Prescriptions: No Action lisinopril [Zestril] 40 mg tablet 40 mg PO DAILY Qty: 30 RF: 5 clonazepam [Klonopin] 1 mg tablet 1 mg PO BID PRN (Reason: Anxiety) RF: 0 atenolol [Tenormin] 50 mg tablet 50 mg PO BID RF: 0 oxycodone 10 mg tablet 10 mg PO .Q4-6HRS PRN (Reason: Pain) RF: 0 fentanyl [Duragesic] 50 mcg/hr patch 72 hour 50 mcg topical [id number] RF: 0 ondansetron HCl 8 mg tablet 8 mg PO Q8H PRN (Reason: Nausea) RF: 0 pantoprazole 40 mg Tablet,Delayed Release (Dr/Ec) 40 mg PO BID Qty: 60 RF: 2 baclofen 10 mg tablet 10 mg PO BID PRN (Reason: Hiccups) RF: 0 dexamethasone 2 mg tablet 2 mg PO DAILY PRN (Reason: Nausea And Vomiting) RF: 0 hydrochlorothiazide 25 mg tablet 25 mg PO DAILY RF: 0 Referrals Referrals: Laury Ji MD [Primary Care Provider] - Discharge Problem: Abdominal pain Qualifiers: Abdominal location: generalized Qualified Code(s): R10.84 - Generalized abdominal pain
[2020-10-04 14:32] LABS: Basophils # (auto) 0.01 K/uL (0-0.2); Basophils % (auto) 0.2 %; Eosinophils # (auto) 0.02 K/uL (0-0.5); Eosinophils % (auto) 0.3 %; Hematocrit (blood only) 37.2 % (42-52); Hemoglobin 13.5 g/dL (14.0-18.0); Immature Granulocytes # (auto) 0.02 K/uL (0.00-0.02); Immature Granulocytes % (auto) 0.3 %; Lymphocytes # (auto) 0.89 K/uL (1.2-3.4); Lymphocytes % (auto) 14.5 %; Mean Corpuscular Hemoglobin 31.5 pg (25-34); Mean Corpuscular Hgb Conc 36.3 g/dL (32-36); Mean Corpuscular Volume 86.9 fL (80-100); Mean Platelet Volume 9.5 fL (7.4-10.4); Monocytes # (auto) 0.63 K/uL (0.11-0.59); Monocytes % (auto) 10.2 %; Neutrophils # (auto) 4.58 K/uL (1.4-6.5); Neutrophils % (auto) 74.5 %; Platelet Count 220 K/uL (130-400); RDW Coefficient of Variation 14.6 % (11.5-14.5); RDW Standard Deviation 46.3 fL (36.4-46.3); Red Blood Count 4.28 M/uL (4.7-6.1); White Blood Count 6.15 K/uL (4.8-10.8)
--- NOTE | 2020-10-04 14:34 | XRay Report ---
XR chest 1V portable CLINICAL HISTORY: Pain, radiating to the abdomen. COMPARISON STUDY: 09/09/2020 FINDINGS: The cardiac and mediastinal contours remain stable. There is a left-sided A-Port catheter p resent. There is been interval increase in the size and number of the multiple bilateral pulmonary no dules. This is highly suspicious for progressive metastatic disease. There is no lobar consolidation. There is no pneumothorax. There are no pleural effusions.[Old bilateral rib fractures are again visu alized. IMPRESSION: 1. Interval increase in the size and number of the multiple bilateral pulmonary nodules consistent wi th progressive metastatic disease ACT 112: Negative or not required by law. Electronically signed by: Jose Roberto Harris M.D. 10/04/2020 2:33 PM
[2020-10-04 14:42] LABS: INR 0.9 (0.9-1.1); Partial Thromboplastin Ratio 1.2; Partial Thromboplastin Time 32.1 Seconds (21.0-31.0); Prothrombin Time 9.9 Seconds (9.0-12.0)
[2020-10-04 14:53] LABS: Appearance Urine Clear (Clear); Bilirubin Urine Negative (Negative); Blood Urine Negative (Negative); Color Urine Yellow; Glucose Urine UA Negative (Negative); Ketones Urine Negative (Negative); Leukocyte Esterase Urine Negative (Negative); Nitrite Urine Negative (Negative); Protein Urine Negative (Negative); Specific Gravity Urine 1.006 (1.000-1.030); Urobilinogen Urine Negative (Negative)
[2020-10-04 14:54] LABS: Alanine Aminotransferase 38 U/L (12-78); Albumin Globulin Ratio 0.9 (0.9-2); Albumin Level 3.1 gm/dl (3.4-5.0); Alkaline Phosphatase 140 U/L (45-117); BUN Creatinine Ratio 7.5 (10-20); Bilirubin,Total 1.5 mg/dl (0.2-1); Blood Urea Nitrogen 5 mg/dl (7-18); Calcium 9.1 mg/dl (8.5-10.1); Carbon Dioxide 26 mmol/L (21-32); Est GFR (African American) 126.3; Est GFR (Non-African American) 108.9; Globulin 3.5 gm/dl (2.5-4.0); Glucose 92 mg/dl (70-99); Lipase 94 U/L (73-393); Sodium 113 mmol/L (136-145); Total Protein 6.6 gm/dl (6.4-8.2)
--- NOTE | 2020-10-04 14:54 | CT Scan Report ---
CT SCAN OF THE ABDOMEN AND PELVIS WITHOUT IV CONTRAST CLINICAL HISTORY: Nausea. Colorectal carcinoma. COMPARISON STUDY: Abdominal CT dated 09/07/2020 TECHNIQUE: CT scan of the abdomen and pelvis is performed from the lung bases to the proximal femora. Images are reviewed in the axial, sagittal, and coronal planes. IV contrast was not administered for this examination. Note that the examination was performed in suboptimal fashion lateral and IV contr ast. A dose lowering technique was utilized adhering to the principles of ALARA. CT DOSE: 930.82 mGycm FINDINGS: Lung bases: The heart is normal in size and without pericardial effusion. There is evidence of multif ocal pulmonary metastatic disease with greater than 20 nodules seen at the lung bases. The largest le lamonte is seen in the left lower lobe on image #13 and measures 1.8 cm. Several of the larger nodule me asures show central cavitation. There is no airspace consolidation typical for pneumonia or pleural e ffusion. Postoperative change is noted at the left lung base. A small hiatal hernia is noted. Liver: The unenhanced liver is normal in size, contour, and attenuation. There is no intrahepatic mallory iary ductal dilatation. Gallbladder: Unremarkable. Spleen: Normal in size and attenuation. There are scattered calcified splenic granulomas. Pancreas: The unenhanced pancreas is moderately atrophic and grossly unremarkable. Adrenal glands: Unremarkable. Kidneys: The unenhanced kidneys are normal in size and without hydronephrosis. There are no renal mili culi identified. There is no evidence of contour deforming renal mass lesion. Abdominal vasculature: The abdominal aorta is normal in course and caliber noting moderate to advance d atherosclerotic calcification. Bowel:. There is postoperative change from left sided colonic resection with colocolonic anastomosis. No bowel obstruction is seen. Moderate fecal retention is noted throughout the remaining colon. Ther e is moderate diverticulosis of the remaining colon without CT evidence of acute diverticulitis. Resi dual enteric contrast is suggested in the small bowel and colon. The appendix is well-visualized and normal. Peritoneum: There is no intraperitoneal free air or abdominal ascites. Lymphadenopathy: None. Pelvic viscera: There is median lobe hypertrophy of the prostate gland. The bladder is distended. Mil d bladder wall thickening and trabeculation suggests chronic outlet obstruction. Skeletal structures: No lytic or blastic lesions are seen. There are healed left-sided rib fractures. IMPRESSION: 1. Suboptimal examination without oral and IV contrast. 2. There are no acute infectious or inflammatory findings in the abdomen or pelvis. 3. Moderate constipation. 4. Multifocal pulmonary metastatic disease appears modestly progressed as compared to 09/07/2020. 5. Moderate colonic diverticulosis without CT evidence of acute diverticulitis. 6. Additional findings as above. ACT 112: Negative or not required by law. Electronically signed by: Bernardo King M.D. 10/04/2020 2:53 PM
[2020-10-04 15:41] LABS: Chloride 112 mmol/L (98-107)
[2020-10-04 16:05] LABS: Alanine Aminotransferase 41 U/L (12-78); Albumin Level 3.3 gm/dl (3.4-5.0); Aspartate Aminotransferase 106 U/L (15-37); BUN Creatinine Ratio 6.5 (10-20); Blood Urea Nitrogen 5 mg/dl (7-18); Calcium 9.4 mg/dl (8.5-10.1); Carbon Dioxide 27 mmol/L (21-32); Chloride 76 mmol/L (98-107); Est GFR (African American) 123.3; Est GFR (Non-African American) 106.4; Glucose 93 mg/dl (70-99); Sodium 116 mmol/L (136-145)
[2020-10-04 16:10] LABS: Albumin Globulin Ratio 0.9 (0.9-2); Alkaline Phosphatase 150 U/L (45-117); Bilirubin,Total 1.4 mg/dl (0.2-1); Globulin 3.8 gm/dl (2.5-4.0); Total Protein 7.1 gm/dl (6.4-8.2)
--- NOTE | 2020-10-04 16:46 | History & Physical Report ---
Date of Service October 04, 2020 Assessment & Plan (1) Acute hyponatremia: Na was 113 on admission. - Given 1 L NS - BMP Q4h - Small boluses of 3% NS, closely monitor sodium to avoid over-correcting. Goal is 8-10 mEq/dL over 24 hours. (2) Adenocarcinoma of colon: Metastatic disease. He completed 12 cycles on 07/10/19 then continued with maintenance bevacizumab. Repeat scans unfortunately revealed progressive disease. Patient was started on Lonsurf. He follows with Dr. Nguyen. - CT a/p shows progression of his disease - Continue fentanyl patch, oxycodone, baclofen, clonazepam (3) Hypertension: BP is 120/60 at present. - Hold HCTZ & lisinopril for electrolyte imbalances - Continue atenolol (4) Campylobacter enteritis: Resolved. He has not had any diarrhea in several days. - Monitor (5) Neuropathic pain: Likely due to cancer. - Continue pain meds as needed (6) Tobacco abuse: - Nicotine patch (7) DVT prophylaxis: Lovenox 40 mg SQ daily History of Present Illness Primary Care Provider: Laury Ji MD 55yo M w/ Stage IV colon adenocarcinoma who presents for dehydration and hyponatremia. He mostly came in because he was referred by his PCP's office. He called them for lower back pain. He was offered to go to the ED for further evaluation. In the ED, he was found to be significantly hyponatremic. He reports that his PO intake has been slightly lower recently. He has also had some nausea. He had been having diarrhea when he had his Campylobacter infection, but notes that he's actually not had a BM in the last few days. Otherwise, he denies chest pain, shortness of breath, fevers, chills, or other systemic symptoms. Has been on and off treatment for some time. Presently taking a break from chemotherapy. Allergies Allergy/AdvReac Type Severity Reaction Status Date / Time No Known Allergies Allergy Verified 10/04/20 16:49 Home Medications Medication Instructions Recorded Confirmed Type atenolol [Tenormin] 50 mg PO BID 09/07/20 10/04/20 History clonazepam [Klonopin] 1 mg PO BID PRN 09/07/20 10/04/20 History fentanyl [Duragesic] 50 mcg TOPICAL CQ72HR 09/07/20 10/04/20 History ondansetron HCl 8 mg PO Q8H PRN 09/07/20 10/04/20 History oxycodone 10 mg PO .Q4-6HRS PRN 09/07/20 10/04/20 History pantoprazole 40 mg PO BID #60 tab 09/13/20 10/04/20 Rx lisinopril 40 mg tablet 40 mg PO DAILY #30 tab 09/30/20 10/04/20 Rx baclofen 10 mg PO BID PRN 10/04/20 10/04/20 History dexamethasone 2 mg PO DAILY PRN 10/04/20 10/04/20 History hydrochlorothiazide 25 mg PO DAILY 10/04/20 10/04/20 History Past Med/Surg History Medical History Acute hyponatremia Adenocarcinoma of colon Anorexia Colitis Colon cancer colon resection + chemo Current every day smoker GERD (gastroesophageal reflux disease) High blood pressure Hypertension Intractable hiccups Pulmonary nodules Tobacco abuse Surgical History History of colon resection 2018 History of colonoscopy History of lung surgery (11/28/19) Left thoracoscopy with biopsy, left lower lobe nodule. Dr. Alvarenga 11-28-19 History of tonsillectomy History of tooth extraction History of vascular access device Family History Father Cancer Colorectal cancer Social History Smoking Status: Current every day smoker packs per day: 0.5; Years Smoked: 25; Cigarettes Per Day: 1/2 ppd; Second Hand Exposure: Yes (as a child); Hx Alcohol Use: No Hx Substance Use: No Preferred Language: Macedonian Communication Ability: Effective Harp Action Assembler Required: No Beliefs That Will Affect Care: None marital status: Single Current Living Situation: Family Current Living Situation Comment: Lives w/ brother - Luke Villeda current occupational status: employed 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 Feels Safe at Home: Yes Assistive Devices: None Review of Systems Review of Systems: All systems reviewed & are unremarkable except as noted in HPI & below Physical Exam Constitutional: WD/WN, vitals as above Eyes: EOM intact bilaterally; no conjunctival abnormality ENMT: external ear and nose normal, oropharynx normal Neck: trachea midline, no thyromegaly normal visual inspection Respiratory: normal respiratory effort, lungs clear to auscultation no respiratory distress Cardiovascular: RRR, no murmur, no edema Gastrointestinal (Abdomen): Inspection/Auscultation: abdomen normal to inspection; abdomen not distended Musculoskeletal: no cyanosis or clubbing, extremities motor strength 5/5 Skin: no rashes, warm and dry Neurologic: moves all extremities and awake Psychiatric: Orientation: alert, oriented to person and cooperative Results & Data Results & Data ([facility]) Vital Signs (Past 12 Hours) Vital Signs Temp Pulse Resp BP Pulse Ox 10/04/20 16:00 77 13 117/60 95 10/04/20 15:31 81 18 149/72 H 95 10/04/20 15:01 79 16 170/90 H 96 10/04/20 14:47 77 20 162/88 H 96 10/04/20 14:22 36.8 C 82 18 184/95 H 97 Code Status & VTE Plan VTE Prophylaxis Plan VTE Prophylaxis will be ordered: Yes PG Care Time/CCT Total # of Minutes Spent Total Time Spent with Patient: Total time spent is greater than 50% in coordination of care (as documented) at patient's floor/unit and/or counseling patient: Coding Level of Care Code 22753 Initial Inpt Care Lvl 3 Diagnoses Acute hyponatremia E87.1 Adenocarcinoma of colon C18.9 Hypertension I10 Campylobacter enteritis A04.5 Neuropathic pain M79.2 Tobacco abuse Z72.0 DVT prophylaxis Z29.9
[2020-10-04] MEDS ORDERED: NICOTINE 14 MG/24 HR PATCH TD ONE (17:13)
[2020-10-04] MEDS ORDERED: clonazePAM 1 MG TAB PO ONE (17:20)
[2020-10-04] MEDS ORDERED: oxyCODONE HCL IR 5 MG TAB (IMMEDIATE RELEASE) PO ONE (21:00)
[2020-10-04] MEDS ORDERED: clonazePAM 1 MG TAB PO PRN (22:38)
[2020-10-04] MEDS ORDERED: ACETAMINOPHEN 325 MG TAB PO PRN (22:38)
[2020-10-04] MEDS ORDERED: ONDANSETRON INJ 2 MG/ML 2 ML VIAL IV PRN (22:38)
[2020-10-04] MEDS ORDERED: ENOXAPARIN INJ 40 MG/0.4 ML SYR SQ SCH (23:00)
[2020-10-04] MEDS ORDERED: SODIUM CHLORIDE 3 % 50 ML IV ONE (23:00)
[2020-10-04] MEDS: NICOTINE 14 MG/24 HR PATCH TD SCH (23:45)
[2020-10-04] MEDS: CHECK fentaNYL PATCH PLACEMENT SCH (23:45)
[2020-10-04] MEDS: PANTOprazole 40 MG TAB PO SCH (23:46)
[2020-10-04 23:50] LABS: BUN Creatinine Ratio 7.9 (10-20); Creatinine Clr Calc Pharmacy 152.4 ml/min; Est GFR (Non-African American) 114.8; Potassium 3.1 mmol/L (3.5-5.1)
[2020-10-05] MEDS: oxyCODONE HCL IR 5 MG TAB (IMMEDIATE RELEASE) PO PRN ×3 (00:46→11:07)
[2020-10-05 03:07] LABS: BUN Creatinine Ratio 7.9 (10-20); Calcium 8.7 mg/dl (8.5-10.1); Creatinine Clr Calc Pharmacy 140.5 ml/min; Est GFR (African American) 128.7; Potassium 3.1 mmol/L (3.5-5.1)
[2020-10-05 06:53] LABS: Hematocrit (blood only) 37.2 % (42-52); Hemoglobin 13.3 g/dL (14.0-18.0); Mean Corpuscular Hemoglobin 32.2 pg (25-34); Mean Corpuscular Hgb Conc 35.8 g/dL (32-36); Mean Corpuscular Volume 90.1 fL (80-100); Mean Platelet Volume 8.8 fL (7.4-10.4); Platelet Count 224 K/uL (130-400); RDW Coefficient of Variation 14.9 % (11.5-14.5); RDW Standard Deviation 49.4 fL (36.4-46.3); Red Blood Count 4.13 M/uL (4.7-6.1); White Blood Count 7.33 K/uL (4.8-10.8)
[2020-10-05 07:18] LABS: BUN Creatinine Ratio 8.3 (10-20); Calcium 9.3 mg/dl (8.5-10.1); Creatinine Clr Calc Pharmacy 132.3 ml/min; Est GFR (African American) 125.5; Est GFR (Non-African American) 108.3; Potassium 3.1 mmol/L (3.5-5.1)
[2020-10-05 07:21] LABS: Magnesium 2.4 mg/dl (1.8-2.4); Phosphorus 3.3 mg/dl (2.5-4.9)
[2020-10-05] MEDS ORDERED: DEXTROSE 5% 500 ML IV STA (07:28)
[2020-10-05] MEDS: PANTOprazole 40 MG TAB PO SCH (08:11)
[2020-10-05] MEDS: NICOTINE 14 MG/24 HR PATCH TD SCH (08:12)
[2020-10-05] MEDS ORDERED: ATENOLOL 50 MG TABLET PO SCH (09:00)
[2020-10-05] MEDS ORDERED: fentaNYL 50 MCG/HR TDSY TD SCH (09:00)
[2020-10-05] MEDS: CHECK fentaNYL PATCH PLACEMENT SCH (10:34)
[2020-10-05 11:00] LABS: BUN Creatinine Ratio 8.3 (10-20); Calcium 8.8 mg/dl (8.5-10.1); Creatinine Clr Calc Pharmacy 121.5 ml/min; Est GFR (African American) 121.2; Est GFR (Non-African American) 104.6; Potassium 2.9 mmol/L (3.5-5.1)
--- NOTE | 2020-10-05 16:52 | Discharge Summary ---
Date of Service October 05, 2020 Admission HPI Per Admitting Provider 55yo M w/ Stage IV colon adenocarcinoma who presents for dehydration and hyponatremia. He mostly came in because he was referred by his PCP's office. He called them for lower back pain. He was offered to go to the ED for further evaluation. In the ED, he was found to be significantly hyponatremic. He reports that his PO intake has been slightly lower recently. He has also had some nausea. He had been having diarrhea when he had his Campylobacter infection, but notes that he's actually not had a BM in the last few days. Otherwise, he denies chest pain, shortness of breath, fevers, chills, or other systemic symptoms. Has been on and off treatment for some time. Presently taking a break from chemotherapy. Principal Diagnosis Hyponatremia Discharge Exam Constitutional WD/WN, vitals as above Eyes EOM intact bilaterally; no conjunctival abnormality ENMT external ear and nose normal, oropharynx normal Neck trachea midline, no thyromegaly normal visual inspection Respiratory normal respiratory effort, lungs clear to auscultation no respiratory distress Cardiovascular RRR, no murmur, no edema Gastrointestinal (Abdomen) Inspection/Auscultation: abdomen normal to inspection; abdomen not distended Musculoskeletal no cyanosis or clubbing, extremities motor strength 5/5 Skin no rashes, warm and dry Neurologic moves all extremities and awake Psychiatric Orientation: alert, oriented to person and cooperative Discharge Data Allergies Allergy/AdvReac Type Severity Reaction Status Date / Time No Known Allergies Allergy Verified 10/04/20 16:49 Consultations 10/04/20 16:26 ED Decision to Admit Stat Ordered Studies 10/04/20 14:15 CT abd pelvis wo con Stat Hospital Course (1) Acute hyponatremia: Na was 113 on admission. - Given 1 L NS - BMP Q4h - Small boluses of 3% NS, closely monitor sodium to avoid over-correcting. Goal is 8-10 mEq/dL over 24 hours. - On 10/05, we overcorrected his sodium. His Urine Na was low, indicating poor PO intake as his major issue. We gave a 500 mL bolus of D5 to help slow/slightly reverse his correction. However, he said he wanted to leave. I discussed the risks including seizures, confusion, or even . Given his overall poor prognosis, he was not overly concerned with these issues and asked to be discharged. I did refill his oxycodone and discharged him AMA. (2) Adenocarcinoma of colon: Secondary malignant neoplasm of lungs. He completed 12 cycles on 07/10/19 then continued with maintenance bevacizumab. Repeat scans unfortunately revealed progressive disease. Patient was started on Lonsurf. He follows with Dr. Nguyen. - CT a/p shows progression of his disease - Continue fentanyl patch, oxycodone, baclofen, clonazepam (3) Hypertension: BP is 120/60 at present. - Hold HCTZ & lisinopril for electrolyte imbalances - Continue atenolol (4) Campylobacter enteritis: Resolved. He has not had any diarrhea in several days. - Monitor (5) Neuropathic pain: Likely due to cancer. - Continue pain meds as needed (6) Tobacco abuse: - Nicotine patch (7) DVT prophylaxis: Lovenox 40 mg SQ daily Total Time Total Time Spent Total Time Spent (In Minutes): 35 Discharge Plan Discharge Items Patient Disposition: Against Medical Advice Reason For Visit: HYPONATREMIA Discharge Diagnosis: Low blood sodium Condition on Discharge: Serious Activity: Resume your previous activity Non-emergency contact: Primary Care Provider Call non-emergency contact if: your symptoms worsen, your pain is not controlled and your pain is worsening Follow-up/Referrals: Laury Ji MD [Primary Care Provider] - 10/12/20 12:00 pm (You have a follow up appt with Tia on SundayOctober 12, at 12pm. Please arrive 15 minutes prior to your appt. It is important that you keep this appt, if it does not fit your schedule, please call [phone] to reschedule. ) Diet: Regular Addtl Attending Provider Instructions: Mr. Villeda, You were admitted to the hospital with low sodium. This was likely caused by your cancer and not being able to eat enough salt and protein to help your body keep its sodium up. We gave you some fluids which helped raise the sodium, but it hasn't gotten to the normal range. You have let us know you need to leave the hospital. I would advise you to stay, but I understand your desire to arrange your affairs. I have sent 3 days of oxycodone to your pharmacy. I will also reach out to Dr. Ji to try to contact you as well. Please come back to the hospital with any concerns/issues. Pending Studies at Discharge: No Stand-Alone Forms: [facility], Smoking Cessation Medications and DC Order Prescriptions: New oxycodone 15 mg tablet 15 mg PO Q4H PRN (Reason: pain) Qty: 30 RF: 0 Continued lisinopril [Zestril] 40 mg tablet 40 mg PO DAILY Qty: 30 RF: 5 clonazepam [Klonopin] 1 mg tablet 1 mg PO BID PRN (Reason: Anxiety) RF: 0 atenolol [Tenormin] 50 mg tablet 50 mg PO BID RF: 0 fentanyl [Duragesic] 50 mcg/hr patch 72 hour 50 mcg topical CQ72HR RF: 0 ondansetron HCl 8 mg tablet 8 mg PO Q8H PRN (Reason: Nausea) RF: 0 pantoprazole 40 mg Tablet,Delayed Release (Dr/Ec) 40 mg PO BID Qty: 60 RF: 2 baclofen 10 mg tablet 10 mg PO BID PRN (Reason: Hiccups) RF: 0 dexamethasone 2 mg tablet 2 mg PO DAILY PRN (Reason: Nausea And Vomiting) RF: 0 hydrochlorothiazide 25 mg tablet 25 mg PO DAILY RF: 0 Discharge Orders: Left Against Medical Advice (Routine); Ordered 10/05/20 Ordered By: Binh Cameron Admission Data Admit Date/Time: 10/04/20 16:40 Attending Provider: Binh Cameron Admit Provider: Binh Cameron Primary Care Provider: Laury Ji Other Providers: Papa Andre Other Interventions: Discharge Summary Assessment (RN) Last Done: 10/05/20 10:47 Coding Level of Care Code D/C Day Management >30 mins Diagnoses Acute hyponatremia E87.1 Adenocarcinoma of colon C18.9 Hypertension I10 Campylobacter enteritis A04.5 Neuropathic pain M79.2 Tobacco abuse Z72.0 DVT prophylaxis Z29.9
== END 2020-10-05 11:25 | disposition left against medical advice (07) | DRG 641 ==
LOC: ED 14:03 → 2W 16:40

== ENCOUNTER 2021-01-10 13:52 | Observation (INO) ==
[2021-01-10 14:24] LABS: Basophils # (auto) 0.02 K/uL (0-0.2); Basophils % (auto) 0.2 %; Eosinophils # (auto) 0.14 K/uL (0-0.5); Eosinophils % (auto) 1.3 %; Hematocrit (blood only) 36.4 % (42-52); Immature Granulocytes # (auto) 0.06 K/uL (0.00-0.02); Immature Granulocytes % (auto) 0.6 %; Lymphocytes # (auto) 1.63 K/uL (1.2-3.4); Lymphocytes % (auto) 15.4 %; Mean Corpuscular Hemoglobin 31.5 pg (25-34); Mean Corpuscular Hgb Conc 35.7 g/dL (32-36); Mean Corpuscular Volume 88.1 fL (80-100); Mean Platelet Volume 9.1 fL (7.4-10.4); Monocytes # (auto) 1.03 K/uL (0.11-0.59); Monocytes % (auto) 9.7 %; Neutrophils # (auto) 7.69 K/uL (1.4-6.5); Neutrophils % (auto) 72.8 %; Platelet Count 247 K/uL (130-400); RDW Coefficient of Variation 13.6 % (11.5-14.5); RDW Standard Deviation 44.1 fL (36.4-46.3); Red Blood Count 4.13 M/uL (4.7-6.1); White Blood Count 10.57 K/uL (4.8-10.8)
[2021-01-10] MEDS ORDERED: ONDANSETRON INJ 2 MG/ML 2 ML VIAL IV STA (14:37)
[2021-01-10] MEDS ORDERED: SODIUM CHLORIDE 0.9% 1000ML 1,000 ML IV ONE (14:37)
[2021-01-10] MEDS ORDERED: MoRPHine SULFATE 4 MG/ML 1 ML CARP\\VIAL IV STA ×2 (14:38→15:54)
--- NOTE | 2021-01-10 14:41 | Emergency Department Note ---
Impression & Plan Colon cancer, Acute hyponatremia, Abdominal pain, Constipation ED Provider Note NAME: JUSTINO SOLITARIO AGE: 55 SEX: M : 1965 ARRIVES VIA: Ambulance INFORMANT: Patient ED PROVIDER(S): Maninder aRjan DO CHIEF COMPLAINT: Abdominal pain and vomiting HPI: Patient is a 55-year-old male with past medical history of of tobacco abuse, metastatic cancer, of the colon who presents to ER for abdominal distention and vomiting. This started the past 24 hours. Pain is about a 5 out of 10. Last bowel movement was yesterday. He denies any dysuria, urgency or frequency. Pain is fairly constant and feels like he is going to have diarrhea but he is not. Denies any headache or change in vision. No chest pain or shortness of breath. No fevers. No other exacerbating or remitting factors. ROS: See above HPI for pertinent positives & negatives. A total of 10 systems reviewed and were otherwise negative. PAST MEDICAL HISTORY:See Below PAST SURGICAL HISTORY:See Below FAMILY HISTORY:See Below SOCIAL HISTORY:See Below HOME MEDICATIONS:See Below ALLERGIES:See Below VITALS:See Below PHYSICAL EXAMINATION: GENERAL: Sitting up in bed, alert, chronically ill-appearing, disheveled EYE EXAM: normal conjunctiva. OROPHARYNX: no exudate, no erythema, lips, buccal mucosa, and tongue normal and mucous membranes are moist NECK: supple, no nuchal rigidity, no adenopathy, non-tender LUNGS: Clear to auscultation. Normal chest wall mechanics HEART: no murmurs, S1 normal and S2 normal ABDOMEN: abdomen soft, non-tender, normo-active bowel sounds, no masses, no rebound or guarding. UPPER EXTREMITIES: upper extremities are grossly normal. LOWER EXTREMITIES: No pitting edema. NEURO EXAM: Normal sensorium, cranial nerves II-XII grossly intact, normal speech, no gross weakness of arms, no gross weakness of legs. MEDICAL DECISION MAKING: Patient is a 55-year-old male who presents ER for abdominal pain associated with vomiting. Last bowel movement was yesterday. History of metastatic colon cancer. IV was established blood work was obtained. Labs show no significant leukocytosis or anemia. BMP with significant hyponatremia 123. Likely consistent with alcohol abuse. LFTs bilirubin lipase was unremarkable. UA was negative. Covid was negative. CT abdomen pelvis shows metastatic disease with severe constipation. Patient was given IV fluids and IV narcotics. He was updated bedside. Discussed with the hospitalist for further admission. Triage Nursing notes reviewed. Limited review of prior medical records performed Vital Signs: reviewed and remarkable for HTN Differential diagnosis: Differential diagnoses includes but is not limited to gastritis, peptic ulcer disease, GERD, gallbladder disease, pancreatitis, small bowel obstruction, acute coronary syndrome, pericarditis, ischemic bowel, irritable bowel disease, irritable bowel syndrome, appendicitis, diverticulitis, malignancy, hernia, urinary tract infection, torsion, [/ectopic (if female)], perforation, trauma, infectious. ER treatment provided: See below Diagnostics interpreted by me: ECG: none Cardiac Monitoring: An order was placed for continuous cardiac monitoring. The monitor shows a rate of 62 with sinus rhythm. Laboratory studies: As stated above and show below. Imaging studies: CT abdomen pelvis shows severe constipation Consultation(s): Discussed with hospitalist for further evaluation Procedures: none Critical Care: None Past Med/Surg History Medical History Acute hyponatremia Adenocarcinoma of colon Anorexia Colitis Colon cancer Current every day smoker GERD (gastroesophageal reflux disease) High blood pressure Hypertension Intractable hiccups Pulmonary nodules Tobacco abuse Surgical History History of colon resection History of colonoscopy History of lung surgery (11/28/19) History of tonsillectomy History of tooth extraction History of vascular access device Family History Father Cancer Colorectal cancer Mother Myocardial infarction Brother Prostate cancer Denies family history of Ovarian cancer Breast cancer Social History Smoking Status: Current every day smoker packs per day: 0.5; Years Smoked: 25; Cigarettes Per Day: 10; Second Hand Exposure: Yes; Hx Alcohol Use: No Hx Substance Use: No Preferred Language: [place] Communication Ability: Effective Wiping Cloth Cutter Required: No Beliefs That Will Affect Care: None marital status: Single Current Living Situation: Family Current Living Situation Comment: Lives w/ brother - Luke Solitario current occupational status: employed 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 Feels Safe at Home: Yes Assistive Devices: None Allergies Allergies Allergy/AdvReac Type Severity Reaction Status Date / Time No Known Allergies Allergy Verified 01/10/21 16:42 Home Meds Home Medications Medication Instructions Recorded Confirmed atenolol [Tenormin] 50 mg PO BID 09/07/20 01/10/21 ondansetron HCl 8 mg PO Q8H PRN 09/07/20 01/10/21 dexamethasone 2 mg PO DAILY PRN 10/04/20 01/10/21 oxycodone See Rx Instructions .ROUTE 01/10/21 01/10/21 .COMPLEX PRN Previous Rx's Medication Instructions Recorded pantoprazole 40 mg PO BID #60 tab 09/13/20 lisinopril 40 mg tablet 40 mg PO DAILY #30 tab 09/30/20 baclofen 10 mg tablet 10 mg PO BID PRN #60 tab 11/13/20 clonazepam 1 mg tablet 1 mg PO BID PRN #60 tab 12/29/20 furosemide 20 mg tablet 20 mg PO DAILY #30 tab 12/29/20 nicotine 21 mg/24 hr daily 1 patch TRANSDERMAL DAILY #28 ea 01/07/21 transdermal patch Results & Data (ED) Vital Signs Vital Signs - 24 hr 01/10/21 14:07 01/10/21 14:27 01/10/21 14:30 Temperature 37.0 C Temperature Source Oral Pulse Rate 85 67 62 Pulse Rate from SpO2 Sensor 67 62 Respiratory Rate 20 14 14 Respiratory Effort / Characteristics Non-Labored Spontaneous Respiratory Depth Normal Blood Pressure 162/91 H 130/72 142/87 H Blood Pressure Mean 114 91 105 Pulse Oximetry 98 99 99 Oxygen Delivery Method Room Air Room Air Room Air Sepsis Recent Fever Within 48 Hours No Sepsis New/Unexplained Change in Mental Status N/A Sepsis Action Taken by Nursing No Action Required 01/10/21 15:00 01/10/21 15:30 01/10/21 15:52 Temperature Temperature Source Pulse Rate 67 71 68 Pulse Rate from SpO2 Sensor 69 71 67 Respiratory Rate 19 20 12 Respiratory Effort / Characteristics Respiratory Depth Blood Pressure 142/82 H 148/92 H 136/80 Blood Pressure Mean 102 110 98 Pulse Oximetry 100 97 98 Oxygen Delivery Method Sepsis Recent Fever Within 48 Hours Sepsis New/Unexplained Change in Mental Status Sepsis Action Taken by Nursing 01/10/21 15:53 01/10/21 16:00 01/10/21 16:30 Temperature Temperature Source Pulse Rate 75 64 62 Pulse Rate from SpO2 Sensor 68 65 63 Respiratory Rate 16 17 14 Respiratory Effort / Characteristics Respiratory Depth Blood Pressure 135/70 Blood Pressure Mean 91 Pulse Oximetry 99 97 97 Oxygen Delivery Method Sepsis Recent Fever Within 48 Hours Sepsis New/Unexplained Change in Mental Status Sepsis Action Taken by Nursing 01/10/21 17:00 01/10/21 17:06 01/10/21 17:30 Temperature 37.0 C Temperature Source Pulse Rate 62 73 63 Pulse Rate from SpO2 Sensor 63 Respiratory Rate 14 16 16 Respiratory Effort / Characteristics Respiratory Depth Blood Pressure 132/70 132/70 131/68 Blood Pressure Mean 90 90 89 Pulse Oximetry 97 95 94 Oxygen Delivery Method Sepsis Recent Fever Within 48 Hours Sepsis New/Unexplained Change in Mental Status Sepsis Action Taken by Nursing 01/10/21 18:00 01/10/21 18:30 Temperature Temperature Source Pulse Rate 60 66 Pulse Rate from SpO2 Sensor Respiratory Rate 15 15 Respiratory Effort / Characteristics Respiratory Depth Blood Pressure 133/74 118/66 Blood Pressure Mean 93 83 Pulse Oximetry 95 95 Oxygen Delivery Method Sepsis Recent Fever Within 48 Hours Sepsis New/Unexplained Change in Mental Status Sepsis Action Taken by Nursing Laboratory Data Result diagrams: 01/10/21 14:00 01/10/21 15:59 Lab Results 01/10/21 01/10/21 01/10/21 Range/Units 14:00 14:00 15:53 WBC 10.57 (4.8-10.8) K/uL RBC 4.13 L (4.7-6.1) M/uL Hgb 13.0 L (14.0-18.0) g/dL Hct 36.4 L (42-52) % MCV 88.1 (80-100) fL MCH 31.5 (25-34) pg MCHC 35.7 (32-36) g/dL RDW Std Deviation 44.1 (36.4-46.3) fL RDW Coeff of Gerald 13.6 (11.5-14.5) % Plt Count 247 (130-400) K/uL MPV 9.1 (7.4-10.4) fL Immature Gran % (Auto) 0.6 % Neut % (Auto) 72.8 % Lymph % (Auto) 15.4 % [place] % (Auto) 9.7 % Eos % (Auto) 1.3 % Baso % (Auto) 0.2 % Neut # (Auto) 7.69 H (1.4-6.5) K/uL Lymph # (Auto) 1.63 (1.2-3.4) K/uL [place] # (Auto) 1.03 H (0.11-0.59) K/uL Eos # (Auto) 0.14 (0-0.5) K/uL Baso # (Auto) 0.02 (0-0.2) K/uL Immature Gran # (Auto) 0.06 H (0.00-0.02) K/uL Sodium 123 L (136-145) mmol/L Potassium (3.5-5.1) mmol/L Chloride 84 L (98-107) mmol/L Carbon Dioxide 29 (21-32) mmol/L Anion Gap 10.0 (3-11) BUN 8 (7-18) mg/dl Creatinine 0.73 (0.6-1.4) mg/dl Est Cr Clr Drug Dosing 135.3 ml/min Est GFR ( Amer) 121.9 Est GFR (Non-Af Amer) 105.2 BUN/Creatinine Ratio 11.3 (10-20) Glucose 115 H (70-99) mg/dl Calcium 10.0 (8.5-10.1) mg/dl Total Bilirubin 0.8 (0.2-1) mg/dl AST (15-37) U/L ALT 21 (12-78) U/L Alkaline Phosphatase 104 (45-117) U/L Total Protein 6.9 (6.4-8.2) gm/dl Albumin 3.4 (3.4-5.0) gm/dl Globulin 3.5 (2.5-4.0) gm/dl Albumin/Globulin Ratio 1.0 (0.9-2) Lipase 82 (73-393) U/L Urine Color Yellow Urine Appearance Cloudy A (Clear) Urine pH 7.0 (4.5-7.5) Ur Specific [place] 1.006 (1.000-1.030) Urine Protein Negative (Negative) Urine Glucose (UA) Negative (Negative) Urine Ketones Negative (Negative) Urine Blood Negative (Negative) Urine Nitrite Negative (Negative) Urine Bilirubin Negative (Negative) Urine Urobilinogen Negative (Negative) Ur Leukocyte Esterase Negative (Negative) Urine RBC 0-4 (0-4) /hpf Urine WBC 0-5 (0-5) /hpf Ur Epithelial Cells 5-10 H (0-5) /lpf Urine Bacteria Negative (Negative) COVID-19 Eval Order SARS-CoV-2, RNA, NAAT (NEGATIVE) 01/10/21 01/10/21 01/10/21 Range/Units 15:59 16:03 16:03 WBC (4.8-10.8) K/uL RBC (4.7-6.1) M/uL Hgb (14.0-18.0) g/dL Hct (42-52) % MCV (80-100) fL MCH (25-34) pg MCHC (32-36) g/dL RDW Std Deviation (36.4-46.3) fL RDW Coeff of Gerald (11.5-14.5) % Plt Count (130-400) K/uL MPV (7.4-10.4) fL Immature Gran % (Auto) % Neut % (Auto) % Lymph % (Auto) % [place] % (Auto) % Eos % (Auto) % Baso % (Auto) % Neut # (Auto) (1.4-6.5) K/uL Lymph # (Auto) (1.2-3.4) K/uL [place] # (Auto) (0.11-0.59) K/uL Eos # (Auto) (0-0.5) K/uL Baso # (Auto) (0-0.2) K/uL Immature Gran # (Auto) (0.00-0.02) K/uL Sodium (136-145) mmol/L Potassium 3.9 (3.5-5.1) mmol/L Chloride (98-107) mmol/L Carbon Dioxide (21-32) mmol/L Anion Gap (3-11) BUN (7-18) mg/dl Creatinine (0.6-1.4) mg/dl Est Cr Clr Drug Dosing ml/min Est GFR ( Amer) Est GFR (Non-Af Amer) BUN/Creatinine Ratio (10-20) Glucose (70-99) mg/dl Calcium (8.5-10.1) mg/dl Total Bilirubin (0.2-1) mg/dl AST 17 (15-37) U/L ALT (12-78) U/L Alkaline Phosphatase (45-117) U/L Total Protein (6.4-8.2) gm/dl Albumin (3.4-5.0) gm/dl Globulin (2.5-4.0) gm/dl Albumin/Globulin Ratio (0.9-2) Lipase (73-393) U/L Urine Color Urine Appearance (Clear) Urine pH (4.5-7.5) Ur Specific [place] (1.000-1.030) Urine Protein (Negative) Urine Glucose (UA) (Negative) Urine Ketones (Negative) Urine Blood (Negative) Urine Nitrite (Negative) Urine Bilirubin (Negative) Urine Urobilinogen (Negative) Ur Leukocyte Esterase (Negative) Urine RBC (0-4) /hpf Urine WBC (0-5) /hpf Ur Epithelial Cells (0-5) /lpf Urine Bacteria (Negative) COVID-19 Eval Order Covid19 IDNow at[facility] SARS-CoV-2, RNA, NAAT NEGATIVE (NEGATIVE) Administered Medications Discontinued Medications Sodium Chloride (Nss 1000ml) 1,000 mls @ 999 mls/hr IV .Q1H1M ONE Stop: 01/10/21 15:37 Last Infusion: 01/10/21 16:01 Dose: 0 mls/hr Documented by: [id number] Admin: 01/10/21 15:00 Dose: 999 mls/hr Documented by: [id number] Ioversol (Ioversol 100ml) 94 ml IV ONCE ONE Stop: 01/10/21 16:10 Last Admin: 01/10/21 16:10 Dose: 94 ml Documented by: [id number] Morphine Sulfate (Morphine Sulfate 4 Mg/Ml 1 Ml Carp\Vial) 4 mg IV NOW STA Stop: 01/10/21 14:39 Last Admin: 01/10/21 15:00 Dose: 4 mg Documented by: [id number] Morphine Sulfate (Morphine Sulfate 4 Mg/Ml 1 Ml Carp\Vial) 4 mg IV NOW STA Stop: 01/10/21 15:55 Last Admin: 01/10/21 15:58 Dose: 4 mg Documented by: [id number] Ondansetron HCl (Ondansetron Inj 2 Mg/Ml 2 Ml Vial) 4 mg IV NOW STA Stop: 01/10/21 14:38 Last Admin: 01/10/21 15:00 Dose: 4 mg Documented by: [id number] Discharge Plan Visit Data Chief Complaint: Abdominal Pain ED Provider: Maninder Rajan Discharge Problem: Colon cancer, Acute hyponatremia, Abdominal pain, Constipation Forms Stand Alone Forms: [employer] Prescriptions Prescriptions: No Action lisinopril [Zestril] 40 mg tablet 40 mg PO DAILY Qty: 30 RF: 5 baclofen 10 mg tablet 10 mg PO BID PRN (Reason: Hiccups) Qty: 60 RF: 1 clonazepam [Klonopin] 1 mg tablet 1 mg PO BID PRN (Reason: Anxiety) Qty: 60 RF: 0 furosemide [Lasix] 20 mg tablet 20 mg PO DAILY Qty: 30 RF: 1 nicotine [Nicoderm CQ] 21 mg/24 hr patch 24 hour 1 patch transdermal DAILY Qty: 28 RF: 0 atenolol [Tenormin] 50 mg tablet 50 mg PO BID RF: 0 ondansetron HCl 8 mg tablet 8 mg PO Q8H PRN (Reason: Nausea) RF: 0 pantoprazole 40 mg Tablet,Delayed Release (Dr/Ec) 40 mg PO BID Qty: 60 RF: 2 oxycodone 15 mg tablet See Rx Instructions .ROUTE .COMPLEX PRN (Reason: pain) RF: 0 dexamethasone 2 mg tablet 2 mg PO DAILY PRN (Reason: Nausea And Vomiting) RF: 0 Discharge Problem: Colon cancer Qualifiers: Colon location: unspecified part of colon Qualified Code(s): C18.9 - Malignant neoplasm of colon, unspecified Abdominal pain Qualifiers: Abdominal location: unspecified location Qualified Code(s): R10.9 - Unspecified abdominal pain Constipation Qualifiers: Constipation type: unspecified constipation type Qualified Code(s): K59.00 - Constipation, unspecified
[2021-01-10 15:08] LABS: Albumin Level 3.4 gm/dl (3.4-5.0); BUN Creatinine Ratio 11.3 (10-20); Bilirubin,Total 0.8 mg/dl (0.2-1); Creatinine Clr Calc Pharmacy 135.3 ml/min; Est GFR (African American) 121.9; Est GFR (Non-African American) 105.2; Globulin 3.5 gm/dl (2.5-4.0); Total Protein 6.9 gm/dl (6.4-8.2)
[2021-01-10] MEDS ORDERED: OPTIRAY 320 100ml IV ONE (16:09)
[2021-01-10 16:14] LABS: Appearance Urine Cloudy (Clear); Bilirubin Urine Negative (Negative); Blood Urine Negative (Negative); Color Urine Yellow; Glucose Urine UA Negative (Negative); Ketones Urine Negative (Negative); Leukocyte Esterase Urine Negative (Negative); Nitrite Urine Negative (Negative); Protein Urine Negative (Negative); Specific Gravity Urine 1.006 (1.000-1.030); Urobilinogen Urine Negative (Negative)
[2021-01-10 16:27] LABS: Bacteria Urine Negative (Negative); RBC Urine 0-4 /hpf (0-4); WBC Urine 0-5 /hpf (0-5)
[2021-01-10 16:28] LABS: Potassium 3.9 mmol/L (3.5-5.1)
--- NOTE | 2021-01-10 16:47 | CT Scan Report ---
CT SCAN OF THE ABDOMEN AND PELVIS WITH IV CONTRAST CLINICAL HISTORY: Generalized abdominal pain. Abdominal distention. Vomiting. Colon cancer. COMPARISON STUDY: Abdominal CT dated 10/04/2020. TECHNIQUE: Following the IV administration of 94 cc of Optiray 320, CT scan of the abdomen and pelvi s is performed from the lung bases to the proximal femora. Images are reviewed in the axial, sagittal , and coronal planes. IV contrast was administered without complication. A dose lowering technique wa s utilized adhering to the principles of ALARA. CT DOSE: 867.42 mGycm FINDINGS: Lung bases: The heart is normal in size and without pericardial effusion. Postoperative change is not ed at the left lung base. There is no airspace consolidation typical for pneumonia or pleural effusio n. Multifocal pulmonary metastatic disease appears progressive as compared to 10/04/2020. The largest lesion is seen in the left lower lobe on image #2 and measures 1.8 cm. There is a small hiatal herni a. Liver: The contrast-enhanced liver is enlarged, measuring 20.1 cm in length. The liver is otherwise n ormal in contour and attenuation. There is no intrahepatic biliary ductal dilatation. The hepatic vei ns and portal veins are patent. Gallbladder: Unremarkable. Spleen: Normal in size and attenuation. There are numerous calcified splenic granulomas. Pancreas: A 7 mm cystic focus in the pancreatic neck is seen on image #120. This likely represents a small sidebranch IPMN. The pancreas is otherwise grossly unremarkable. Adrenal glands: Unremarkable. Kidneys: The contrast enhanced kidneys are normal in size and without hydronephrosis. The kidneys enh ance symmetrically. There is duplication of the right renal collecting system and at least partial du plication of the right ureter. Abdominal vasculature: The abdominal aorta is normal in course and caliber noting advanced atheroscle rotic calcification. Bowel: There is postoperative change from sigmoid colon resection with colocolonic anastomosis. No javad wel obstruction is seen. There is moderate to severe constipation. There is diverticulosis of the rem aining colon without CT evidence of acute diverticulitis. The appendix is well-visualized and normal . Peritoneum: There is no intraperitoneal free air or abdominal ascites. Lymphadenopathy: None. Pelvic viscera: The bladder is distended but otherwise normal in appearance. The prostate and seminal vesicles are normal as visualized. Skeletal structures: No lytic or blastic lesions are seen. There are healed left-sided rib fractures. IMPRESSION: 1. There are no acute infectious or inflammatory findings in the abdomen or pelvis. 2. Moderate to severe constipation. 3. There is postoperative change from sigmoid colon resection and left-sided pulmonary resection. 4. Multifocal pulmonary metastatic disease appears progressive as compared to 10/04/2020. 5. Mild hepatomegaly. 6. Additional findings as above. ACT 112: Negative or not required by law. Electronically signed by: Bernardo King M.D. 01/10/2021 4:45 PM
--- NOTE | 2021-01-10 17:31 | History & Physical Report ---
Date of Service January 10, 2021 Assessment & Plan (1) Acute hyponatremia: Acute on chronic. Asymptomatic Suspect beer potomania vs. SIADH vs. diuretics. NSS @ 125 ml/hr overnight. Repeat BMP in AM (2) Abdominal pain: Suspect related to constipation secondary to opiate use. No other etiology found on CT A/P UA negative for infection. Will treat constipation with Senna and MiraLAX. (3) Constipation: MiraLAX twice daily Senna at bedtime (4) Adenocarcinoma of colon: Increased pulmonary metastases without much symptoms related to this since scan in October. Currently following with palliative care as outpatient. No current active treatment for this. (5) DVT prophylaxis: Lovenox 40 mg SQ QPM Admission and Anticipated Discharge Date Admission Date: January 10, 2021 History of Present Illness Chief Complaint: Abdominal pain Primary Care Provider: Laury Ji MD Nestor Villeda is a 55-year-old male with stage IV colon adenocarcinoma (currently not on any treatment) who presents to the ER with intractable abdominal pain and vomiting. He reports waking up with this pain today. Severity 08/21. No radiation. Cramping sensation like he needs to go to the bathroom but did not have a bowel movement. Had a normal bowel movement yesterday. Will sometimes go 3 to 4 days without a bowel movement. No melena or bright red blood in stool. Resolved pain in the ER with IV morphine however he reports it is starting to come back. He denies any dysuria, urinary frequency, fever, chills. He drinks 6 beers a day. He reports no history of alcohol withdrawal. In the ER CT abdomen pelvis showed no acute infectious or inflammatory findings in the abdomen pelvis. Moderate to severe constipation seen. UA unremarkable. Sodium level 123. He was referred to medicine for admission and ongoing management of abdominal pain and hyponatremia. Allergies Allergy/AdvReac Type Severity Reaction Status Date / Time No Known Allergies Allergy Verified 01/10/21 16:42 Home Medications Medication Instructions Recorded Confirmed Type atenolol [Tenormin] 50 mg PO BID 09/07/20 01/10/21 History ondansetron HCl 8 mg PO Q8H PRN 09/07/20 01/10/21 History pantoprazole 40 mg PO BID #60 tab 09/13/20 01/10/21 Rx lisinopril 40 mg tablet 40 mg PO DAILY #30 tab 09/30/20 01/10/21 Rx dexamethasone 2 mg PO DAILY PRN 10/04/20 01/10/21 History baclofen 10 mg tablet 10 mg PO BID PRN #60 tab 11/13/20 01/10/21 Rx clonazepam 1 mg tablet 1 mg PO BID PRN #60 tab 12/29/20 01/10/21 Rx furosemide 20 mg tablet 20 mg PO DAILY #30 tab 12/29/20 01/10/21 Rx nicotine 21 mg/24 hr daily 1 patch TRANSDERMAL DAILY #28 ea 01/07/21 01/10/21 Rx transdermal patch oxycodone See Rx Instructions .ROUTE 01/10/21 01/10/21 History .COMPLEX PRN Past Med/Surg History Medical History Acute hyponatremia Adenocarcinoma of colon Anorexia Colitis Colon cancer Current every day smoker GERD (gastroesophageal reflux disease) High blood pressure Hypertension Intractable hiccups Pulmonary nodules Tobacco abuse Surgical History History of colon resection History of colonoscopy History of lung surgery (11/28/19) History of tonsillectomy History of tooth extraction History of vascular access device Family History Father Cancer Colorectal cancer Mother Myocardial infarction Brother Prostate cancer Denies family history of Ovarian cancer Breast cancer Social History Smoking Status: Current every day smoker packs per day: 0.5; Years Smoked: 25; Cigarettes Per Day: 10; Second Hand Exposure: Yes; Tobacco Cessation Education Requested by Patient: No Hx Alcohol Use: Yes Alcohol type: beer Hx Substance Use: No Preferred Language: [place] Communication Ability: Effective Vault Clerk Required: No Beliefs That Will Affect Care: None marital status: Single Current Living Situation: Family Current Living Situation Comment: Lives w/ brother - Luke Villeda 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 occupational status: 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 Other Information That Helps Us Care for You: No Feels Safe at Home: Yes Safety Concerns: Feels Safe At This Time Assistive Devices: Glasses Review of Systems Review of Systems: All systems reviewed & are unremarkable except as noted in HPI & below Physical Exam Constitutional: well developed; + not well nourished and no acute distress Eyes: + anicteric sclerae; pupils not irregular ENMT: external ear and nose normal, oropharynx normal Neck: trachea midline, no thyromegaly Respiratory: normal respiratory effort; no respiratory distress Auscultation: no diminished lung sounds, no crackles and no wheezes Cardiovascular: Rate/Rhythm: regular rate and regular rhythm Heart Sounds: no murmur Extremities: normal capillary refill Gastrointestinal (Abdomen): Inspection/Auscultation: abdomen normal to inspection and normal bowel sounds; abdomen not distended Percussion/Pa lpation: + abdomen tender (Generalized) and abdomen soft; no guarding and abdomen not rigid Musculoskeletal: no cyanosis or clubbing, extremities motor strength 5/5 Skin: no rashes, warm and dry Neurologic: moves all extremities and awake; not confused Motor/Sensory: no tremor Psychiatric: A+Ox3, euthymic affect Results & Data Results & Data ([facility]) Vital Signs (Past 12 Hours) Vital Signs Temp Pulse Resp BP Pulse Ox 01/10/21 17:00 37.0 C 62 14 132/70 97 01/10/21 16:30 62 14 135/70 97 01/10/21 16:00 64 17 97 01/10/21 15:53 75 16 99 01/10/21 15:52 68 12 136/80 98 01/10/21 15:30 71 20 148/92 H 97 01/10/21 15:00 67 19 142/82 H 100 01/10/21 14:30 62 14 142/87 H 99 01/10/21 14:27 67 14 130/72 99 01/10/21 14:07 37.0 C 85 20 162/[address] SCAN OF THE ABDOMEN AND PELVIS WITH IV CONTRAST IMPRESSION: 1. There are no acute infectious or inflammatory findings in the abdomen or pelvis. 2. Moderate to severe constipation. 3. There is postoperative change from sigmoid colon resection and left-sided pulmonary resection. 4. Multifocal pulmonary metastatic disease appears progressive as compared to 10/04/2020. 5. Mild hepatomegaly. 6. Additional findings as above. Medications Administered ER medications given: NSS 1 hour bolus Ondansetron 4 mg IV Morphine 4 mg IV x2 Code Status & VTE Plan Code Status DNR/DNI as discussed with the patient VTE Prophylaxis Plan VTE Prophylaxis will be ordered: Yes PG Care Time/CCT Total # of Minutes Spent Total Time Spent with Patient: Total time spent is greater than 50% in coordination of care (as documented) at patient's floor/unit and/or counseling patient: Coding Level of Care Code 52088 Initial Inpt Care Lvl 2 Diagnoses Acute hyponatremia E87.1 Abdominal pain R10.9 Abdominal location: unspecified location Constipation K59.00 Constipation type: unspecified constipation type Adenocarcinoma of colon C18.9 DVT prophylaxis Z29.9 (1) Abdominal pain Abdominal location: unspecified location Qualified Code(s): R10.9 - Unspecified abdominal pain (2) Constipation Constipation type: unspecified constipation type Qualified Code(s): K59.00 - Constipation, unspecified
[2021-01-10] MEDS ORDERED: BACLOFEN 10 MG TAB PO PRN (21:14)
[2021-01-10] MEDS ORDERED: ACETAMINOPHEN 325 MG TAB PO PRN (21:14)
[2021-01-10] MEDS ORDERED: MoRPHine SULFATE 2 MG/ML CARP IV PRN (21:27)
[2021-01-10] MEDS ORDERED: oxyCODONE HCL IR 5 MG TAB (IMMEDIATE RELEASE) PO PRN ×2 (21:27→21:48)
[2021-01-10] MEDS: POLYETHYLENE (MIRALAX) 17 GM PACK PO SCH (21:31)
[2021-01-10] MEDS: SODIUM CHLORIDE 0.9% 1000ML 1,000 ML IV SCH (21:31)
[2021-01-10] MEDS: SENNA 8.6 MG TAB PO SCH (21:31)
[2021-01-10] MEDS: PANTOprazole 40 MG TAB PO SCH (21:31)
[2021-01-10] MEDS: ATENOLOL 50 MG TABLET PO SCH (21:31)
[2021-01-10] MEDS ORDERED: HYDROmorphone INJ 0.5 MG/0.5 ML SYR IV PRN (21:49)
[2021-01-11] MEDS ORDERED: oxyCODONE HCL IR 30 MG TAB (IMMEDIATE RELEASE) PO PRN (05:08)
[2021-01-11] MEDS ORDERED: oxyCODONE HCL IR 5 MG TAB (IMMEDIATE RELEASE) PO STA (05:11)
[2021-01-11] MEDS: oxyCODONE HCL IR 5 MG TAB (IMMEDIATE RELEASE) PO STA ×2 (05:30→05:44)
[2021-01-11] MEDS: SODIUM CHLORIDE 0.9% 1000ML 1,000 ML IV SCH (05:30)
--- NOTE | 2021-01-11 06:01 | Communication Note ---
Date of Service: January 11, 2021 In discussion with patient and nursing, confusion regarding home pain regimen clarified. home regimen consists of 2 tabs 15 mg oxycodone IR in the AM, follo wed by 1.5 tabs 15mg Q4 through the day. Given acute exacerbation of pain and hospitalization, morning dose of 30 mg totaled between previous 10 mg PRN dose and one time 20 mg stat dose. 30 mg Q4H PRN oxycodone IR ordered with understanding that patient would likely require less frequent administration given increased dose. Patient was very somnolent after receiving IV morphine the previous day and is hesitant to use IV narcotics due to this effect.
[2021-01-11] MEDS: PANTOprazole 40 MG TAB PO SCH ×2 (08:04→20:39)
[2021-01-11] MEDS: POLYETHYLENE (MIRALAX) 17 GM PACK PO SCH ×2 (08:04→20:39)
[2021-01-11 08:05] LABS: BUN Creatinine Ratio 12.4 (10-20); Calcium 9.1 mg/dl (8.5-10.1); Creatinine Clr Calc Pharmacy 133.5 ml/min; Est GFR (African American) 121.2; Est GFR (Non-African American) 104.6; Potassium 3.8 mmol/L (3.5-5.1)
[2021-01-11] MEDS: NICOTINE 21 MG/24 HR TDSY TD SCH ×2 (08:05→08:12)
[2021-01-11] MEDS: ATENOLOL 50 MG TABLET PO SCH ×2 (08:06→20:39)
[2021-01-11] MEDS: lisinopril 40 MG TAB PO SCH (08:06)
[2021-01-11] MEDS: MAGNESIUM HYDROXIDE SUSP 30 ML UDC PO PRN ×2 (08:09→17:53)
[2021-01-11] MEDS ORDERED: oxyCODONE HCL IR 5 MG TAB (IMMEDIATE RELEASE) PO PRN (11:25)
[2021-01-11] MEDS: oxyCODONE HCL IR 5 MG TAB (IMMEDIATE RELEASE) PO PRN ×2 (12:22→17:23)
[2021-01-11 12:40] LABS: BUN Creatinine Ratio 12.9 (10-20); Calcium 9.1 mg/dl (8.5-10.1); Est GFR (African American) 119.9; Est GFR (Non-African American) 103.4
[2021-01-11] MEDS ORDERED: POLYETHYLENE (MIRALAX) 17 GM PACK PO ONE (12:45)
[2021-01-11] MEDS: clonazePAM 1 MG TAB PO PRN (14:33)
--- NOTE | 2021-01-11 16:31 | Medical Student Progress Note ---
Date of Service January 11, 2021 Assessment & Plan (1) Acute hyponatremia: Mr. Villeda is a 55yo male with stage IV colon adenocarcinoma and 20+ pulmonary mets presenting with constipation, abdominal pain, and hyponatremia of 123. 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 His past chemo, current medications--such as furosemide--, and 6 beers/day drinking may also be contributory. His initial BMP showed hyponatremia of 123, and sodium since showed increase to 134. With the potential risk of osmotic demyelination syndrome, we do not want to increase his Na faster than 12 in 24 hours, and we already have increased 11. -Therefore, hold his NSS at this time to slow the Na increase. -His furosemide 20mg is for venous stasis and he feels it is not helping anyway, so we will discontinue to hopefully prevent further hyponatremia. -We discussed fluid restriction with him as well, and that if the furosemide is not enough control then a 60oz fluid restriction daily may also help keep the SIADH in check, especially given that pt drinks six beers per day. -Pt continues to be ASx regarding the hyponatremia, but continue to monitor Sx. -Continue to get BMP q4hr to monitor Na Disposition: Stay in hospital until tomorrow to continue monitoring Na, Sx, and waiting for BM. Possible discharge tomorrow if no setbacks and BM. (2) Abdominal pain: Constipation both symptomatically and seen on CT A/P, moderate-severe. Likely secondary to opiate use, which itself is necessary because of the colon adenocarcinoma pain. UA negative for infection, as was CT A/P. No bowel movement since Sunday. -Increase MiraLAX dose to four times today. Discussed with patient that he can increase home baseline dose of MiraLAX and that this will likely help proa ctively to prevent further constipation. Continue Senna at bedtime. Abdominal location: unspecified location Qualified Code(s): R10.9 - Unspecified abdominal pain (3) Constipation: As above, no BM yet but continue to monitor. Increase MiraLAX and continue Senna. Constipation type: unspecified constipation type Qualified Code(s): K59.00 - Constipation, unspecified (4) Adenocarcinoma of colon: CT A/P showed continued progression of pulmonary mets, and this is likely the main underlying etiology of his SIADH. Continue plan to follow with palliative care outpatient. No current changes in management warranted. (5) DVT prophylaxis: Lovenox 40 mg SQ QPM Admission and Anticipated Discharge Date Admission Date: January 10, 2021 Supervising Attestation I personally examined the patient and verified all martinez points of history and exam, discussed case, and agree with decision making with Vane Du MS4 Feeling better, still no bowel movement. Vitals noted, in general he is awake and alert pleasant no distress. HEENT normocephalic atraumatic mucous membranes moist. Breathing unlabored no accessory muscle use good effort. Skin shows no rashes no pallor or icterus. Hyponatremialikely multifactorial, I suspect he does have SIADH from his pulmonary nodules, he also probably has salt wasting from the furosemide, and I wonder whether or not a degree of polydipsia/[place] plays a role with the beeralthough this may also simply be an overlap as it relates to the SIADH. Has improved, he neurologically appears intact, continue to follow. Discussed a modest fluid restriction, he notes no improvement in his leg edema with Lasixwe discussed just stopping it outright. Otherwise as above. Constipationprobably also contributes to the hyponatremia from poor p.o. intake of solute, and hyponatremia probably is contributing somewhat to the constipation from decreasing motility. The biggest factor driving the constipation, of course, as his pain regimenseems to be helping reasonably well with pain control. We discussed the need for a proactive bowel regimen. MiraLAX to effect adequate bowel movements, and then an ongoing regimen and titrating MiraLAX with a goal of bowel movements approximately daily. Hopefully home tomorrow, otherwise as above. Subjective Mr. Villeda is a 55yo male with a PMHx of stage IV colon adenocarcinoma with numerous pulmonary mets who presented to the ED yesterday afternoon with abdominal pain, distension, and vomiting. Today he feels the pain has much improved with the addition of his pain regiment of oxycodone, from 5/10 on admission to 0/10 aside from a few twinges today. He has a good appetite and ate broth and jello for breakfast. He feels constipated and has not had a bowel movement since Sunday. He says six months ago he was also admitted for hyponatremia. He reports drinking six beers daily. Review of Systems Review of Systems: All systems reviewed & are unremarkable except as noted in HPI & below Constitutional: no fever, no chills, no fatigue and no weakness Respiratory: no cough and no dyspnea Cardiovascular: no chest pain, no dyspnea and no palpitations Gastrointestinal: + abdominal pain (mild twinges, much improved) and + constipation; no heartburn, no nausea, no vomiting, no dysphagia and no diarrhea/loose stools Genitourinary: no dysuria Neurologic: no gait abnormality, no unsteadiness, no falls, no dizziness, no syncope, no headache(s) and no confusion Physical Exam Constitutional: WD/WN, vitals as above ENMT: external ear and nose normal, oropharynx normal moist mucous memb ranes Respiratory: normal respiratory effort, lungs clear to auscultation Auscultation: no crackles, no rales, no rhonchi and no wheezes Cardiovascular: RRR, no murmur, no edema Heart Sounds: normal S1 and normal S2; no gallop, no murmur and no cardiac rub Gastrointestinal (Abdomen): Inspection/Auscultation: + abdomen distended (somewhat distended, patient reports more than his baseline) and normal bowel sounds Percussion/Palpation: abdomen soft; abdomen nontender, no guarding, abdomen not rigid and no hepatosplenomegaly Musculoskeletal: no cyanosis or clubbing, extremities motor strength 5/5 Skin: no rashes, warm and dry normal turgor Neurologic: CN's II-XI intact bilaterally Psychiatric: A+Ox3, euthymic affect Results & Data ([facility]) Vital Signs (Past 12 Hours) Vital Signs Temp Pulse Resp BP Pulse Ox 01/11/21 15:05 36.3 C L 63 16 112/64 97 01/11/21 11:15 37.1 C 61 18 106/68 97 01/11/21 08:05 37.0 C 64 18 110/65 95
[2021-01-11 17:08] LABS: BUN Creatinine Ratio 12.9 (10-20); Calcium 9.5 mg/dl (8.5-10.1); Creatinine Clr Calc Pharmacy 137.2 ml/min; Est GFR (African American) 122.6; Est GFR (Non-African American) 105.8; Potassium 3.7 mmol/L (3.5-5.1)
--- NOTE | 2021-01-11 18:52 | Billing Data ---
Date of Service January 11, 2021 Coding Level of Care Code 46040 Subseq Hosp Care Lvl 3
[2021-01-11] MEDS: SENNA 8.6 MG TAB PO SCH (20:39)
[2021-01-11] MEDS: ENOXAPARIN INJ 40 MG/0.4 ML SYR SQ SCH ×2 (20:39→21:51)
[2021-01-11 20:44] LABS: BUN Creatinine Ratio 12.1 (10-20); Calcium 9.1 mg/dl (8.5-10.1); Creatinine Clr Calc Pharmacy 128.3 ml/min; Est GFR (African American) 119.2; Est GFR (Non-African American) 102.9; Potassium 3.7 mmol/L (3.5-5.1)
[2021-01-12] MEDS: clonazePAM 1 MG TAB PO PRN (00:04)
[2021-01-12 01:14] LABS: BUN Creatinine Ratio 11.4 (10-20); Calcium 9.2 mg/dl (8.5-10.1); Creatinine Clr Calc Pharmacy 141.1 ml/min; Potassium 3.8 mmol/L (3.5-5.1)
[2021-01-12] MEDS: oxyCODONE HCL IR 5 MG TAB (IMMEDIATE RELEASE) PO PRN ×2 (03:04→08:43)
[2021-01-12 05:21] LABS: BUN Creatinine Ratio 8.5 (10-20); Calcium 9.1 mg/dl (8.5-10.1); Creatinine Clr Calc Pharmacy 119.9 ml/min; Est GFR (African American) 120.5; Potassium 3.9 mmol/L (3.5-5.1)
[2021-01-12] MEDS: lisinopril 40 MG TAB PO SCH (08:07)
[2021-01-12] MEDS: NICOTINE 21 MG/24 HR TDSY TD SCH (08:07)
[2021-01-12] MEDS: ATENOLOL 50 MG TABLET PO SCH (08:07)
[2021-01-12] MEDS: PANTOprazole 40 MG TAB PO SCH (08:07)
[2021-01-12] MEDS ORDERED: POLYETHYLENE (MIRALAX) 17 GM PACK PO SCH (09:00)
[2021-01-12 09:24] LABS: BUN Creatinine Ratio 6.4 (10-20); Calcium 9.5 mg/dl (8.5-10.1); Creatinine Clr Calc Pharmacy 104.6 ml/min; Est GFR (African American) 113.9; Est GFR (Non-African American) 98.3; Potassium 3.4 mmol/L (3.5-5.1)
--- NOTE | 2021-01-12 15:56 | Discharge Summary ---
Date of Service January 12, 2021 Principal Diagnosis hyponatremia, and constipation Discharge Exam Constitutional WD/WN, vitals as above Eyes PERRL, conjunctivae normal, anicteric sclerae ENMT external ear and nose normal, oropharynx normal Respiratory normal respiratory effort, lungs clear to auscultation Cardiovascular RRR, no murmur, no edema Gastrointestinal (Abdomen) normal bowel sounds, soft, nontender, no hepatosplenomegaly Skin no rashes, warm and dry Discharge Data Allergies Allergy/AdvReac Type Severity Reaction Status Date / Time No Known Allergies Allergy Verified 01/10/21 16:42 Consultations 01/10/21 17:02 ED Decision to Admit Stat Ordered Studies 01/10/21 14:37 CT abd pelvis IV con only Stat Hospital Course (1) Acute hyponatremia: Mr. Villeda is a 55yo male with stage IV colon adenocarcinoma and 20+ pulmonary mets presenting with constipation, abdominal pain, and hyponatremia of 123. 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 His past chemo, current medications--such as furosemide--, and 6 beers/day drinking may also be contributory. His initial BMP showed hyponatremia of 123, and sodium since showed increase to 134. With the potential risk of osmotic demyelination syndrome, we do not want to increase his Na faster than 12 in 24 hours, and we already have increased 11 -discontinue lasix to eliminate this potential contribution to hyponatremia. (2) Abdominal pain: Constipation both symptomatically and seen on CT A/P, moderate-severe. Likely secondary to opiate use, which itself is necessary because of the colon adenocarcinoma pain. UA negative for infection, as was CT A/P. No bowel movement since Sunday. -start Miralax daily with titration to one bowel movement a day (3) Adenocarcinoma of colon: - CT A/P showed continued progression of pulmonary mets, and this is likely the main underlying etiology of his SIADH. - Continue plan to follow with palliative care outpatient. No current changes in management warranted. Total Time Total Time Spent Total Time Spent (In Minutes): <30 Discharge Plan Discharge Items Patient Disposition: Home - Self-Care Reason For Visit: HYPONATREMIA Discharge Diagnosis: hyponatremia Activity: Per Instructions section Non-emergency contact: Primary Care Provider Call non-emergency contact if: you have any medication questions, your symptoms worsen and your pain is not controlled Follow-up/Referrals: Laury Ji MD [Primary Care Provider] - Diet: Regular Addtl Attending Provider Instructions: You were seen and admitted following concerns for intractable abdominal pain and nausea following not had a bowel movement for several days. During this evaluation it was also discovered that you had worsening of your sodium levels (this is called hyponatremia), in addition to the constipation induced abdominal pain. Through the elimination of Lasix (furosemide) from your medication regimen we had gradual improvement of your sodium levels without further intervention being needed, as you were previously taking this for your peripheral edema and it was not very effective as far as you can tell we are stopping this medication and you should not take it when you return home. Compression stockings are a suitable option for helping to control the peripheral edema that you have in your legs and will have no effect on your sodium levels unlike the Lasix. For you constipation, we were able to get relief through the use of a larger dose of the Miralax than you typically take at home. As you are now going home, we believe that you should continue to take the Miralax 1 capful (or packet) daily for the next two days to determine if that is the sufficient dose to keep you having some form of a bowel movement every day. If you go more than one day not having a bowel movement you should double the dose and take two capfuls that following day. You should continue to take the Miralax regularly to continue to have one bowel movement a day. Pending Studies at Discharge: No Stand-Alone Forms: My [facility], Smoking Cessation Medications and DC Order Prescriptions: New polyethylene glycol 3350 [Miralax] 17 gram Powder In Packet 17 g PO QAM 30 Days RF: 0 Continued lisinopril [Zestril] 40 mg tablet 40 mg PO DAILY Qty: 30 RF: 5 baclofen 10 mg tablet 10 mg PO BID PRN (Reason: Hiccups) Qty: 60 RF: 1 clonazepam [Klonopin] 1 mg tablet 1 mg PO BID PRN (Reason: Anxiety) Qty: 60 RF: 0 nicotine [Nicoderm CQ] 21 mg/24 hr patch 24 hour 1 patch transdermal DAILY Qty: 28 RF: 0 atenolol [Tenormin] 50 mg tablet 50 mg PO BID RF: 0 ondansetron HCl 8 mg tablet 8 mg PO Q8H PRN (Reason: Nausea) RF: 0 pantoprazole 40 mg Tablet,Delayed Release (Dr/Ec) 40 mg PO BID Qty: 60 RF: 2 oxycodone 15 mg tablet See Rx Instructions .ROUTE .COMPLEX PRN (Reason: pain) RF: 0 dexamethasone 2 mg tablet 2 mg PO DAILY PRN (Reason: Nausea And Vomiting) RF: 0 Discontinued furosemide [Lasix] 20 mg tablet 20 mg PO DAILY Qty: 30 RF: 1 Discharge Orders: Discharge Order (Routine); Ordered 01/12/21 Ordered By: Jan Heredia Admission Data Admit Date/Time: 01/10/21 18:48 Attending Provider: Maninder Powell Admit Provider: Papa Andre Primary Care Provider: Laury Ji Other Providers: Papa Andre Other Interventions: Discharge Summary Assessment (RN) Last Done: 01/12/21 11:21 Supervising Physician Co-Signing Physician Notes I personally examined the patient and verified all martinez points of history and exam, discussed case, and agree with decision making with Dr Heredia Feeling better has had significant bowel movement, up to going home. Vitals noted, in general he is awake and alert pleasant no distress. HEENT normocephalic atraumatic mucous membranes moist. Breathing unlabored no accessory muscle use good effort. Skin shows no rashes no pallor or icterus. Hyponatremialikely multifactorial, I suspect he does have SIADH from his pulmonary nodules, he also probably has salt wasting from the furosemide, and I wonder whether or not a degree of polydipsia/[place] plays a role with the [facility] this may also simply be an overlap as it relates to the SIADH. Has improved, he neurologically appears intact, continue to follow. Since no improvement in edema from Lasix, and not a CHF patient, stop the Lasix altogether to avoid salt wasting. If this alone is not enough to maintain a reasonable sodium level as an outpatient, then moderate fluid restriction could be instituted. Stable for home, serial outpatient basic metabolic panel Constipationprobably also contributes to the hyponatremia from poor p.o. intake of solute, and hyponatremia probably is contributing somewhat to the constipation from decreasing motility. The biggest factor driving the constipation, of course, as his pain regimenseems to be helping reasonably well with pain control. We discussed the need for a proactive bowel regimen. MiraLAX to effect adequate bowel movements, and then an ongoing regimen and titrating MiraLAX with a goal of bowel movements approximately daily. Stable for home, close outpatient follow-up
--- NOTE | 2021-01-12 16:40 | Billing Data ---
Date of Service January 12, 2021 Coding Level of Care Code D/C Day Management <30 mins
== END 2021-01-12 14:13 | disposition home or self-care (01) ==
LOC: ED 13:52 → SUATTDRO 18:48 → 2N 18:48 → INTOOBSV 18:48 → 2N 20:31